=== PATIENT | male | born 1945 | race Caucasian/White ===

== ENCOUNTER 2019-02-06 13:24 | Inpatient (IN) ==
[~2019-02-06 13:24] MED LIST: *HR* Etomidate 20 MG/10 ML AMPUL IVP ONE; *HR* Rocuronium Bromide 100 MG/10 ML VIAL IVC ONE
--- NOTE | 2019-02-06 13:45 | Emergency Department Note ---
Disposition Clinical Impression: Dehydration, SIRS (systemic inflammatory response syndrome), Hypernatremia, Elevated troponin Altered mental status Qualifiers: Altered mental status type: unspecified Qualified Code(s): R41.82 - Altered mental status, unspecified Disposition: Admitted As Inpatient Condition: Serious Time of Disposition: 17:54 General Adult HPI - General Chief complaint: ED Altered Mental Status Stated complaint: altered mental status Time Seen by Provider: 02/06/19 13:38 Source: EMS Limitations: altered mental status - History of Present Illness Pain Scale: 0 - Related Data Home Medications Medication Instructions Recorded Confirmed Aspirin [Lo-Dose Aspirin EC] 81 mg PO DAILY 12/29/16 02/06/19 Atorvastatin Calcium [Lipitor] 80 mg PO HS 12/29/16 02/06/19 Donepezil HCl [Aricept] 10 mg PO HS 12/29/16 02/06/19 Lisinopril [Zestril] 20 mg PO BID 12/29/16 02/06/19 Memantine HCl 10 mg PO BID 12/29/16 02/06/19 amLODIPine [Norvasc] 5 mg PO DAILY 12/29/16 02/06/19 Acetaminophen [Extra Strength 1,000 mg PO BID 02/06/19 02/06/19 Non-Aspirin] Carbidopa/Levodopa ER 50/200 1 tab PO BID 02/06/19 02/06/19 [Sinemet ER 50-200 Tab] Metformin HCl [Fortamet] 1,000 mg PO BIDWM 02/06/19 02/06/19 Allergies Allergy/AdvReac Type Severity Reaction Status Date / Time No Known Allergies Allergy Verified 12/29/16 07:43 Past Medical History - Past Medical History Medical history: Reports: coronary artery disease, dementia, diabetes, GERD, hyperlipidemia, hypertension Surgical history: Reports: angioplasty/stent Psychiatric history: Reports: no psych history - Social History Smoking Status: Former smoker Smokeless Tobacco Status: No Alcohol use: Reports: none Drug use: Reports: none Physical Exam - General Limitations: altered mental status General appearance: other Course Vital Signs Temperature 100.8 F H 02/06/19 13:28 Pulse Rate 73 02/06/19 13:28 Respiratory Rate 33 02/06/19 13:28 Blood Pressure 117/62 02/06/19 13:28 O2 Sat by Pulse Oximetry 91 02/06/19 13:28 Temperature 100.8 F H 02/06/19 13:28 Pulse Rate 69 02/06/19 16:34 Respiratory Rate 16 02/06/19 16:34 Blood Pressure 128/67 02/06/19 16:34 O2 Sat by Pulse Oximetry 97 02/06/19 16:34 Oxygen Delivery Oxygen Delivery Ventilator Medical Decision Making - Lab Data Result diagrams: 02/06/19 13:30 02/06/19 13:30 Lab Results 02/06/19 02/06/19 02/06/19 Range/Units 13:30 13:30 13:30 WBC 13.8 H (4.3-11.1) K/mcL RBC 4.14 L (4.19-5.50) M/mcL Hgb 12.9 (12.9-16.9) g/dL Hct 40.1 (37.5-50.1) % MCV 96.9 (83.0-100.0) fL MCH 31.2 (28.0-33.3) pg MCHC 32.2 (31.6-35.5) g/dL RDW 12.6 (11.5-14.5) % Plt Count 232 (140-400) K/mcL MPV 11.3 (9.4-12.4) fL Immature Gran % 0.5 (0-4) % Seg Neutrophils % 86.4 % Lymphocytes % 6.9 % Monocytes % 6.1 % Eosinophils % 0.0 % Basophils % 0.1 % Neutrophils # 11.9 H (1.6-8.9) K/mcL Lymphocytes # 1.0 (0.6-4.6) K/mcL Monocytes # 0.9 (0.0-1.3) K/mcL Eosinophils # 0.0 (0.0-0.6) K/mcL Basophils # 0.0 (0.0-0.2) K/mcL PT 13.1 H (9.4-12.1) Seconds INR 1.2 APTT 30.8 (26.0-36.0) Seconds Sample Site ABG pH (7.32-7.45) pH Units ABG pCO2 (35-45) mmHg ABG pO2 (85-104) mmHg ABG HCO3 (21-27) mEq/L ABG Total CO2 (20-26) mEq/L ABG O2 Saturation (95-98) % ABG Base Excess (-2 to 3) mEq/L Nestor Test Respiration Rate O2 Delivery Device Blood Gas Modality Inspired O2 (1-15=lpm [id number]=%) Tidal Volume cc PEEP cm H2O Sodium 149 H (136-145) mEq/L Potassium 3.9 (3.5-5.1) mEq/L Chloride 115 H (98-107) mEq/L Carbon Dioxide 23 (23-29) mEq/L BUN 39 H (8-23) mg/dL Creatinine 1.17 (0.70-1.30) mg/dL Est GFR ( Amer) > 60 (> 60) Est GFR (Non-Af Amer) > 60 (> 60) BUN/Creatinine Ratio 33 H (6-26) Glucose 380 H (70-105) mg/dL POC Glucose (70-99) mg/dL Serum Osmolality (280-300) mOsm/kg Calculated Osmolality 333 H (280-300) Lactic Acid (0.5-2.2) mmol/L Calcium 8.7 (8.6-10.3) mg/dL Magnesium 2.2 (1.6-2.6) mg/dL Total Bilirubin 0.6 (0.3-1.0) mg/dL Direct Bilirubin 0.1 (0.0-0.2) mg/dL Indirect Bilirubin 0.5 (0.0-1.2) mg/dL AST 32 (13-39) Units/L ALT 7 (7-52) Units/L Alkaline Phosphatase 72 (34-104) Units/L Ammonia (16-53) mcmol/L Troponin I 0.04 H* (< 0.04) ng/mL Serum Total Protein 6.6 (6.4-8.9) g/dL Albumin 3.2 L (3.5-5.7) g/dL Globulin 3.4 (2.4-3.5) g/dL Albumin/Globulin Ratio 0.9 L (1.1-2.2) Urine Color (Yellow) Urine Clarity (Clear) Urine pH (5.0-8.0) pH Units Ur Specific [place] (1.010-1.025) Urine Protein (Neg-Trace) mg/dL Urine Glucose (UA) (Normal) mg/dL Urine Ketones (Negative) mg/dL Urine Blood (Negative) Urine Nitrite (Negative) Urine Bilirubin (Negative) Urine Urobilinogen (Normal) mg/dL Ur Leukocyte Esterase (Negative) Urine Microscopic RBC (0-3) per hpf Urine Microscopic WBC (0-3) per hpf Ur Squamous Epith Cells (None-Few) per lpf Urine Bacteria (None-Few) per hpf Hyaline Casts (None-Few) per lpf Granular Casts (None Seen) per lpf Ur Culture Indicated? (NO) Urine Osmolality Urine Sodium mEq/L Urine Opiates Screen (Abjrra=523) ng/mL Ur Buprenorphine Scrn (Cutoff=5) ng/mL Ur Barbiturates Screen (Enxpmd=763) ng/mL Ur Phencyclidine Scrn (Cutoff=25) ng/mL Ur Amphetamines Screen (Tmgveq=2384) ng/mL U Benzodiazepines Scrn (Yhxzsu=712) ng/mL Urine Cocaine Screen (Cutoff= 300) ng/mL U Marijuana (THC) Screen (Cutoff = 50) ng/mL Ur Drug Screen Interp Ethyl Alcohol < 10 (Less than 10) mg/dL 02/06/19 02/06/19 02/06/19 Range/Units 13:30 13:30 13:30 WBC (4.3-11.1) K/mcL RBC (4.19-5.50) M/mcL Hgb (12.9-16.9) g/dL Hct (37.5-50.1) % MCV (83.0-100.0) fL MCH (28.0-33.3) pg MCHC (31.6-35.5) g/dL RDW (11.5-14.5) % Plt Count (140-400) K/mcL MPV (9.4-12.4) fL Immature Gran % (0-4) % Seg Neutrophils % % Lymphocytes % % Monocytes % % Eosinophils % % Basophils % % Neutrophils # (1.6-8.9) K/mcL Lymphocytes # (0.6-4.6) K/mcL Monocytes # (0.0-1.3) K/mcL Eosinophils # (0.0-0.6) K/mcL Basophils # (0.0-0.2) K/mcL PT (9.4-12.1) Seconds INR APTT (26.0-36.0) Seconds Sample Site ABG pH (7.32-7.45) pH Units ABG pCO2 (35-45) mmHg ABG pO2 (85-104) mmHg ABG HCO3 (21-27) mEq/L ABG Total CO2 (20-26) mEq/L ABG O2 Saturation (95-98) % ABG Base Excess (-2 to 3) mEq/L Nestor Test Respiration Rate O2 Delivery Device Blood Gas Modality Inspired O2 (1-15=lpm gu86-853=%) Tidal Volume cc PEEP cm H2O Sodium (136-145) mEq/L Potassium (3.5-5.1) mEq/L Chloride (98-107) mEq/L Carbon Dioxide (23-29) mEq/L BUN (8-23) mg/dL Creatinine (0.70-1.30) mg/dL Est GFR ( Amer) (> 60) Est GFR (Non-Af Amer) (> 60) BUN/Creatinine Ratio (6-26) Glucose (70-105) mg/dL POC Glucose (70-99) mg/dL Serum Osmolality 340 H (280-300) mOsm/kg Calculated Osmolality (280-300) Lactic Acid 1.2 (0.5-2.2) mmol/L Calcium (8.6-10.3) mg/dL Magnesium (1.6-2.6) mg/dL Total Bilirubin (0.3-1.0) mg/dL Direct Bilirubin (0.0-0.2) mg/dL Indirect Bilirubin (0.0-1.2) mg/dL AST (13-39) Units/L ALT (7-52) Units/L Alkaline Phosphatase (34-104) Units/L Ammonia (16-53) mcmol/L Troponin I (< 0.04) ng/mL Serum Total Protein (6.4-8.9) g/dL Albumin (3.5-5.7) g/dL Globulin (2.4-3.5) g/dL Albumin/Globulin Ratio (1.1-2.2) Urine Color (Yellow) Urine Clarity (Clear) Urine pH (5.0-8.0) pH Units Ur Specific [place] (1.010-1.025) Urine Protein (Neg-Trace) mg/dL Urine Glucose (UA) (Normal) mg/dL Urine Ketones (Negative) mg/dL Urine Blood (Negative) Urine Nitrite (Negative) Urine Bilirubin (Negative) Urine Urobilinogen (Normal) mg/dL Ur Leukocyte Esterase (Negative) Urine Microscopic RBC (0-3) per hpf Urine Microscopic WBC (0-3) per hpf Ur Squamous Epith Cells (None-Few) per lpf Urine Bacteria (None-Few) per hpf Hyaline Casts (None-Few) per lpf Granular Casts (None Seen) per lpf Ur Culture Indicated? (NO) Urine Osmolality TNP Urine Sodium mEq/L Urine Opiates Screen (Lzgaew=087) ng/mL Ur Buprenorphine Scrn (Cutoff=5) ng/mL Ur Barbiturates Screen (Deucmn=127) ng/mL Ur Phencyclidine Scrn (Cutoff=25) ng/mL Ur Amphetamines Screen (Tumwam=2916) ng/mL U Benzodiazepines Scrn (Hamaqb=499) ng/mL Urine Cocaine Screen (Cutoff= 300) ng/mL U Marijuana (THC) Screen (Cutoff = 50) ng/mL Ur Drug Screen Interp Ethyl Alcohol (Less than 10) mg/dL 02/06/19 02/06/19 02/06/19 Range/Units 13:39 13:41 14:00 WBC (4.3-11.1) K/mcL RBC (4.19-5.50) M/mcL Hgb (12.9-16.9) g/dL Hct (37.5-50.1) % MCV (83.0-100.0) fL MCH (28.0-33.3) pg MCHC (31.6-35.5) g/dL RDW (11.5-14.5) % Plt Count (140-400) K/mcL MPV (9.4-12.4) fL Immature Gran % (0-4) % Seg Neutrophils % % Lymphocytes % % Monocytes % % Eosinophils % % Basophils % % Neutrophils # (1.6-8.9) K/mcL Lymphocytes # (0.6-4.6) K/mcL Monocytes # (0.0-1.3) K/mcL Eosinophils # (0.0-0.6) K/mcL Basophils # (0.0-0.2) K/mcL PT (9.4-12.1) Seconds INR APTT (26.0-36.0) Seconds Sample Site ABG pH (7.32-7.45) pH Units ABG pCO2 (35-45) mmHg ABG pO2 (85-104) mmHg ABG HCO3 (21-27) mEq/L ABG Total CO2 (20-26) mEq/L ABG O2 Saturation (95-98) % ABG Base Excess (-2 to 3) mEq/L Nestor Test Respiration Rate O2 Delivery Device Blood Gas Modality Inspired O2 (1-15=lpm [id number]=%) Tidal Volume cc PEEP cm H2O Sodium (136-145) mEq/L Potassium (3.5-5.1) mEq/L Chloride (98-107) mEq/L Carbon Dioxide (23-29) mEq/L BUN (8-23) mg/dL Creatinine (0.70-1.30) mg/dL Est GFR ( Amer) (> 60) Est GFR (Non-Af Amer) (> 60) BUN/Creatinine Ratio (6-26) Glucose (70-105) mg/dL POC Glucose 309 H 321 H (70-99) mg/dL Serum Osmolality (280-300) mOsm/kg Calculated Osmolality (280-300) Lactic Acid (0.5-2.2) mmol/L Calcium (8.6-10.3) mg/dL Magnesium (1.6-2.6) mg/dL Total Bilirubin (0.3-1.0) mg/dL Direct Bilirubin (0.0-0.2) mg/dL Indirect Bilirubin (0.0-1.2) mg/dL AST (13-39) Units/L ALT (7-52) Units/L Alkaline Phosphatase (34-104) Units/L Ammonia 43 (16-53) mcmol/L Troponin I (< 0.04) ng/mL Serum Total Protein (6.4-8.9) g/dL Albumin (3.5-5.7) g/dL Globulin (2.4-3.5) g/dL Albumin/Globulin Ratio (1.1-2.2) Urine Color (Yellow) Urine Clarity (Clear) Urine pH (5.0-8.0) pH Units Ur Specific [place] (1.010-1.025) Urine Protein (Neg-Trace) mg/dL Urine Glucose (UA) (Normal) mg/dL Urine Ketones (Negative) mg/dL Urine Blood (Negative) Urine Nitrite (Negative) Urine Bilirubin (Negative) Urine Urobilinogen (Normal) mg/dL Ur Leukocyte Esterase (Negative) Urine Microscopic RBC (0-3) per hpf Urine Microscopic WBC (0-3) per hpf Ur Squamous Epith Cells (None-Few) per lpf Urine Bacteria (None-Few) per hpf Hyaline Casts (None-Few) per lpf Granular Casts (None Seen) per lpf Ur Culture Indicated? (NO) Urine Osmolality Urine Sodium mEq/L Urine Opiates Screen (Fzcpgu=889) ng/mL Ur Buprenorphine Scrn (Cutoff=5) ng/mL Ur Barbiturates Screen (Pvswvu=392) ng/mL Ur Phencyclidine Scrn (Cutoff=25) ng/mL Ur Amphetamines Screen (Madxop=0299) ng/mL U Benzodiazepines Scrn (Zllqox=867) ng/mL Urine Cocaine Screen (Cutoff= 300) ng/mL U Marijuana (THC) Screen (Cutoff = 50) ng/mL Ur Drug Screen Interp Ethyl Alcohol (Less than 10) mg/dL 02/06/19 02/06/19 02/06/19 Range/Units 14:26 14:40 14:40 WBC (4.3-11.1) K/mcL RBC (4.19-5.50) M/mcL Hgb (12.9-16.9) g/dL Hct (37.5-50.1) % MCV (83.0-100.0) fL MCH (28.0-33.3) pg MCHC (31.6-35.5) g/dL RDW (11.5-14.5) % Plt Count (140-400) K/mcL MPV (9.4-12.4) fL Immature Gran % (0-4) % Seg Neutrophils % % Lymphocytes % % Monocytes % % Eosinophils % % Basophils % % Neutrophils # (1.6-8.9) K/mcL Lymphocytes # (0.6-4.6) K/mcL Monocytes # (0.0-1.3) K/mcL Eosinophils # (0.0-0.6) K/mcL Basophils # (0.0-0.2) K/mcL PT (9.4-12.1) Seconds INR APTT (26.0-36.0) Seconds Sample Site R Radial ABG pH 7.47 H (7.32-7.45) pH Units ABG pCO2 31 L (35-45) mmHg ABG pO2 59 L (85-104) mmHg ABG HCO3 23 (21-27) mEq/L ABG Total CO2 23 (20-26) mEq/L ABG O2 Saturation 92 L (95-98) % ABG Base Excess 0 (-2 to 3) mEq/L Nestor Test Positive Respiration Rate 20 O2 Delivery Device Adult Vent Blood Gas Modality ASSIST CONTROL Inspired O2 50.0 (1-15=lpm ip72-484=%) Tidal Volume 500 cc PEEP 5 cm H2O Sodium (136-145) mEq/L Potassium (3.5-5.1) mEq/L Chloride (98-107) mEq/L Carbon Dioxide (23-29) mEq/L BUN (8-23) mg/dL Creatinine (0.70-1.30) mg/dL Est GFR ( Amer) (> 60) Est GFR (Non-Af Amer) (> 60) BUN/Creatinine Ratio (6-26) Glucose (70-105) mg/dL POC Glucose (70-99) mg/dL Serum Osmolality (280-300) mOsm/kg Calculated Osmolality (280-300) Lactic Acid (0.5-2.2) mmol/L Calcium (8.6-10.3) mg/dL Magnesium (1.6-2.6) mg/dL Total Bilirubin (0.3-1.0) mg/dL Direct Bilirubin (0.0-0.2) mg/dL Indirect Bilirubin (0.0-1.2) mg/dL AST (13-39) Units/L ALT (7-52) Units/L Alkaline Phosphatase (34-104) Units/L Ammonia (16-53) mcmol/L Troponin I (< 0.04) ng/mL Serum Total Protein (6.4-8.9) g/dL Albumin (3.5-5.7) g/dL Globulin (2.4-3.5) g/dL Albumin/Globulin Ratio (1.1-2.2) Urine Color Dark Yellow (Yellow) Urine Clarity Turbid A (Clear) Urine pH 5.0 (5.0-8.0) pH Units Ur Specific [place] > 1.030 H (1.010-1.025) Urine Protein 100 H (Neg-Trace) mg/dL Urine Glucose (UA) 500 H (Normal) mg/dL Urine Ketones Negative (Negative) mg/dL Urine Blood Small H (Negative) Urine Nitrite Negative (Negative) Urine Bilirubin Small H (Negative) Urine Urobilinogen Normal (Normal) mg/dL Ur Leukocyte Esterase Small H (Negative) Urine Microscopic RBC 15-30 H (0-3) per hpf Urine Microscopic WBC 50-100 H (0-3) per hpf Ur Squamous Epith Cells Many H (None-Few) per lpf Urine Bacteria Few (None-Few) per hpf Hyaline Casts None Seen (None-Few) per lpf Granular Casts Few H (None Seen) per lpf Ur Culture Indicated? YES A (NO) Urine Osmolality Urine Sodium mEq/L Urine Opiates Screen Negative (Xsvjhz=490) ng/mL Ur Buprenorphine Scrn Negative (Cutoff=5) ng/mL Ur Barbiturates Screen Negative (Efamhq=466) ng/mL Ur Phencyclidine Scrn Negative (Cutoff=25) ng/mL Ur Amphetamines Screen Negative (Qsyayh=0071) ng/mL U Benzodiazepines Scrn Negative (Sezeoh=830) ng/mL Urine Cocaine Screen Negative (Cutoff= 300) ng/mL U Marijuana (THC) Screen Negative (Cutoff = 50) ng/mL Ur Drug Screen Interp See Below Ethyl Alcohol (Less than 10) mg/dL 02/06/19 02/06/19 Range/Units 14:40 14:40 WBC (4.3-11.1) K/mcL RBC (4.19-5.50) M/mcL Hgb (12.9-16.9) g/dL Hct (37.5-50.1) % MCV (83.0-100.0) fL MCH (28.0-33.3) pg MCHC (31.6-35.5) g/dL RDW (11.5-14.5) % Plt Count (140-400) K/mcL MPV (9.4-12.4) fL Immature Gran % (0-4) % Seg Neutrophils % % Lymphocytes % % Monocytes % % Eosinophils % % Basophils % % Neutrophils # (1.6-8.9) K/mcL Lymphocytes # (0.6-4.6) K/mcL Monocytes # (0.0-1.3) K/mcL Eosinophils # (0.0-0.6) K/mcL Basophils # (0.0-0.2) K/mcL PT (9.4-12.1) Seconds INR APTT (26.0-36.0) Seconds Sample Site ABG pH (7.32-7.45) pH Units ABG pCO2 (35-45) mmHg ABG pO2 (85-104) mmHg ABG HCO3 (21-27) mEq/L ABG Total CO2 (20-26) mEq/L ABG O2 Saturation (95-98) % ABG Base Excess (-2 to 3) mEq/L Nestor Test Respiration Rate O2 Delivery Device Blood Gas Modality Inspired O2 (1-15=lpm ot15-649=%) Tidal Volume cc PEEP cm H2O Sodium (136-145) mEq/L Potassium (3.5-5.1) mEq/L Chloride (98-107) mEq/L Carbon Dioxide (23-29) mEq/L BUN (8-23) mg/dL Creatinine (0.70-1.30) mg/dL Est GFR ( Amer) (> 60) Est GFR (Non-Af Amer) (> 60) BUN/Creatinine Ratio (6-26) Glucose (70-105) mg/dL POC Glucose (70-99) mg/dL Serum Osmolality (280-300) mOsm/kg Calculated Osmolality (280-300) Lactic Acid (0.5-2.2) mmol/L Calcium (8.6-10.3) mg/dL Magnesium (1.6-2.6) mg/dL Total Bilirubin (0.3-1.0) mg/dL Direct Bilirubin (0.0-0.2) mg/dL Indirect Bilirubin (0.0-1.2) mg/dL AST (13-39) Units/L ALT (7-52) Units/L Alkaline Phosphatase (34-104) Units/L Ammonia (16-53) mcmol/L Troponin I (< 0.04) ng/mL Serum Total Protein (6.4-8.9) g/dL Albumin (3.5-5.7) g/dL Globulin (2.4-3.5) g/dL Albumin/Globulin Ratio (1.1-2.2) Urine Color (Yellow) Urine Clarity (Clear) Urine pH (5.0-8.0) pH Units Ur Specific [place] (1.010-1.025) Urine Protein (Neg-Trace) mg/dL Urine Glucose (UA) (Normal) mg/dL Urine Ketones (Negative) mg/dL Urine Blood (Negative) Urine Nitrite (Negative) Urine Bilirubin (Negative) Urine Urobilinogen (Normal) mg/dL Ur Leukocyte Esterase (Negative) Urine Microscopic RBC (0-3) per hpf Urine Microscopic WBC (0-3) per hpf Ur Squamous Epith Cells (None-Few) per lpf Urine Bacteria (None-Few) per hpf Hyaline Casts (None-Few) per lpf Granular Casts (None Seen) per lpf Ur Culture Indicated? (NO) Urine Osmolality 996 Urine Sodium 26.2 mEq/L Urine Opiates Screen (Djfrsz=109) ng/mL Ur Buprenorphine Scrn (Cutoff=5) ng/mL Ur Barbiturates Screen (Bwqdqj=731) ng/mL Ur Phencyclidine Scrn (Cutoff=25) ng/mL Ur Amphetamines Screen (Klzkck=7416) ng/mL U Benzodiazepines Scrn (Fppnlk=371) ng/mL Urine Cocaine Screen (Cutoff= 300) ng/mL U Marijuana (THC) Screen (Cutoff = 50) ng/mL Ur Drug Screen Interp Ethyl Alcohol (Less than 10) mg/dL Critical Care Time Critical Care Time: Yes Total Critical Care Time: 35 Attestation: 35 minutes of critical care time excluding separately billable procedures given the patient's mental status, necessity for continuous monitoring, coordination and admission to the intensive care unit. Attestation Statement - Attestation Attestation: Carissa Griffin D.O., examined this patient and my medical decision-making was reviewed with the Resident Physician. I agree with the documented findings, disposition and treatment plan as described except to the extent set forth below. 73-year-old male with a history of Alzheimer's who presents from nursing facility due to altered mental status and fever. EMS reports he has had a decreased level of responsiveness at the facility over the last 2 days. They checked his temperature prior to transfer today and said it was 103. arrived shortly after saying that he has been less responsive for the last few days. Denies any vomiting, diarrhea. States that yesterday he choked and coughed whenever he was drinking a little bit of liquid. General: Somnolent HENT: Normocephalic, Atraumatic Neck: No JVD Cardiovascular: Regular rate and rhythm. No appreciable murmurs Respiratory: Diminished breath sounds bilaterally. No wheezing/rhonchi Abdominal: Soft, non tender. No peritoneal findings Extremities: No peripheral edema Neuro: Somnolent, Withdraws to pain Skin: Warm, Dry, Grade 1 decubitus ulcer Plan: Septic evaluation including CBC, Lactic acid, Blood cultures, CXR, UA, CT Head. Begin IVF and supplemental O2. ED Procedure Note: EKG interpretation - I agree with the resident physician's documentation and interpretation of the patient's EKG. Sinus rhythm with rate of 75 bpm. Normal axis. Upsloping inferior and lateral ST depressions. No gross ST elevations. Changes from previous EKG on 12/29/[address] T wave changes. Procedure note: The patient was intubated by the resident physician, Dr. Mayo under my direct supervision without complication. Please see her note for details. Imaging and labs reviewed. CT without acute findings. He does have a leukocytosis. His lactic acid is normal. He has a slight elevation of his troponin. He has no obvious source for his fever. Lumbar puncture was atte mpted by the resident physician as well as myself. This was unsuccessful. The patient has been started on broad-spectrum antibiotic coverage including vancomycin, Zosyn and Levaquin. The patient has been given 2 L of normal saline. Given his hypernatremia we are starting half-normal saline at maintenance with a repeat chemistry in 6 hours. The patient is admitted to the intensive care unit under the hospitalist service.
--- NOTE | 2019-02-06 13:50 | Emergency Department Note ---
Disposition Clinical Impression: Dehydration, SIRS (systemic inflammatory response syndrome), Hypernatremia Altered mental status Qualifiers: Altered mental status type: unspecified Qualified Code(s): R41.82 - Altered mental status, unspecified Disposition: Admitted As Inpatient Condition: Serious Referrals: Julio Seals Jr, MD [Primary Care Provider] - Forms: ED Satisfaction Letter Time of Disposition: 17:11 General Adult HPI - General Chief complaint: ED Altered Mental Status Stated complaint: altered mental status Time Seen by Provider: 02/06/19 13:38 Source: family, EMS Mode of arrival: EMS Limitations: altered mental status Nursing Notes Reviewed: Yes Vital Signs Reviewed: Yes - History of Present Illness HPI Narrative: Patient is a 73-year-old male that presents emergency Department with reports from EMS and family that the patient has had increased altered mentation. Family member states that approximately one week ago the patient went into a standing care facility due to his Alzheimer's. States that at that time he was up ambulating around without issue. States that for about the past week he has had altered mentation and is had minimal responsiveness at the extended care facility and has not been wanting to eat and has lost approximately 10 pounds. Patient's states that he is a diabetic and takes metformin but does not take any insulin. Patient's states that he has not really been eating and occasionally when his foot will choke on his food. Family member states that he just has not been acting his usual self and has been febrile. Family states that they have done blood work and x-rays at the outside facility and have not found a source of infection. Pain Scale: 0 - Related Data Home Medications Medication Instructions Recorded Confirmed Aspirin [Lo-Dose Aspirin EC] 81 mg PO DAILY 12/29/16 12/29/16 Atorvastatin Calcium [Lipitor] 80 mg PO HS 12/29/16 12/29/16 Donepezil HCl [Aricept] 10 mg PO HS 12/29/16 12/29/16 Lisinopril [Zestril] 20 mg PO BID 12/29/16 12/29/16 Memantine HCl 10 mg PO BID 12/29/16 12/29/16 amLODIPine [Norvasc] 5 mg PO DAILY 12/29/16 12/29/16 Acetaminophen [Extra Strength 1,000 mg PO BID 02/06/19 02/06/19 Non-Aspirin] Carbidopa/Levodopa ER 50/200 1 tab PO BID 02/06/19 02/06/19 [Sinemet ER 50-200 Tab] Metformin HCl [Fortamet] 1,000 mg PO BIDWM 02/06/19 02/06/19 Allergies Allergy/AdvReac Type Severity Reaction Status Date / Time No Known Allergies Allergy Verified 12/29/16 07:43 All systems ED: reviewed and negative except as stated. (Was obtained from family.) Limitations: ROS unobtainable due to patients medical condition Constitutional: Reports: fever Neurological: Reports: other (Altered mentation ) Past Medical History - Past Medical History Medical history: Reports: coronary artery disease, dementia, diabetes, GERD, hyperlipidemia, hypertension Surgical history: Reports: angioplasty/stent Psychiatric history: Reports: no psych history - Social History Smoking Status: Former smoker Smokeless Tobacco Status: No Alcohol use: Reports: none Drug use: Reports: none Physical Exam - General Limitations: altered mental status General appearance: other - Head Head exam: atraumatic, normocephalic - Eye Eye exam: Present: other (Patient has pinpoint pupils bilaterally.) - Neck Neck exam: Present: normal inspection, full ROM, trachea midline - Respiratory Respiratory exam: Present: normal lung sounds bilaterally. Absent: respiratory distress, wheezes - Cardiovascular Cardiovascular exam: Present: regular rate, normal rhythm, normal heart sounds, +S1, +S2 - Abdominal Exam Abdominal exam: Present: soft, Non-Tender, normal bowel sounds - Neurological Exam Neurological exam: Absent: alert, oriented X3 - Psychiatric Psychiatric exam: Present: normal affect, normal mood - Skin Skin exam: Present: warm, dry, intact Course Vital Signs Temperature 100.8 F H 02/06/19 13:28 Pulse Rate 73 02/06/19 13:28 Respiratory Rate 33 02/06/19 13:28 Blood Pressure 117/62 02/06/19 13:28 O2 Sat by Pulse Oximetry 91 02/06/19 13:28 Temperature 100.8 F H 02/06/19 13:28 Pulse Rate 69 02/06/19 16:34 Respiratory Rate 16 02/06/19 16:34 Blood Pressure 128/67 02/06/19 16:34 O2 Sat by Pulse Oximetry 97 02/06/19 16:34 Oxygen Delivery Oxygen Delivery Ventilator Medical Decision Making - MDM Narrative Medical decision making narrative: Due to the patient presenting to the emergency department with reports of being minimally responsive and febrile we will obtain basic lab for testing, head CT and chest x-ray blood cultures the patient was start on empiric antibiotics. The patient's respiratory status was tachypnea and did not feel that she is protecting his own airway. Due to his airway being unprotected we elected to intubate the patient. Patient was taken to the trauma bay and respiratory therapy was called to bedside. Patient received 20 mg of etomidate and 60 of rocuronium and the patient was intubated by Dr. Mer Mayo. A 4 Mac direct laryngoscope and a 7.5 ET tube was placed successfully. There was equal breath sounds bilaterally with chest x-ray confirmation. The patient's head CT did not show evidence of acute intra-cranial abnormalities. Patient's laboratory testing showed a mild leukocytosis, normal lactic acid. A mildly elevated troponin of 0.04. Chest x-ray did not show any focal infiltrates cells suggest a ammonia. The patient's urinalysis did not show signs of an overt infection to explain the patient's condition. Patient was started on empiric antibiotics. Patient did have an elevated sodium of 149. The patient does appear to be dry based on laboratory testing. An LP was attempted by myself and the attending however it was unable to be obtained due to the patient's body habitus. The patient will require admission to the ICU due to being on a ventilator. Spoke with the admitting hospitalist Dr. Kamara and she is accepted the patient for admission. The patient will be admitted to the ICU for further evaluation and management. It was relayed to her that we were unable to obtain a sample of cerebrospinal fluid and the patient would likely need a spinal tap under fluoroscopy by interventional radiology. She stated that she had passed this onto the admitting hospitalist. - Medical Records Medical records reviewed: Yes I reviewed the patient's medical records. - Lab Data Lab results reviewed: Yes I reviewed the patient's lab results. Result diagrams: 02/06/19 13:30 02/06/19 13:30 Lab Results 02/06/19 02/06/19 02/06/19 Range/Units 13:30 13:30 13:30 WBC 13.8 H (4.3-11.1) K/mcL RBC 4.14 L (4.19-5.50) M/mcL Hgb 12.9 (12.9-16.9) g/dL Hct 40.1 (37.5-50.1) % MCV 96.9 (83.0-100.0) fL MCH 31.2 (28.0-33.3) pg MCHC 32.2 (31.6-35.5) g/dL RDW 12.6 (11.5-14.5) % Plt Count 232 (140-400) K/mcL MPV 11.3 (9.4-12.4) fL Immature Gran % 0.5 (0-4) % Seg Neutrophils % 86.4 % Lymphocytes % 6.9 % Monocytes % 6.1 % Eosinophils % 0.0 % Basophils % 0.1 % Neutrophils # 11.9 H (1.6-8.9) K/mcL Lymphocytes # 1.0 (0.6-4.6) K/mcL Monocytes # 0.9 (0.0-1.3) K/mcL Eosinophils # 0.0 (0.0-0.6) K/mcL Basophils # 0.0 (0.0-0.2) K/mcL PT 13.1 H (9.4-12.1) Seconds INR 1.2 APTT 30.8 (26.0-36.0) Seconds Sample Site ABG pH (7.32-7.45) pH Units ABG pCO2 (35-45) mmHg ABG pO2 (85-104) mmHg ABG HCO3 (21-27) mEq/L ABG Total CO2 (20-26) mEq/L ABG O2 Saturation (95-98) % ABG Base Excess (-2 to 3) mEq/L Nestor Test Respiration Rate O2 Delivery Device Blood Gas Modality Inspired O2 (1-15=lpm [id number]=%) Tidal Volume cc PEEP cm H2O Sodium 149 H (136-145) mEq/L Potassium 3.9 (3.5-5.1) mEq/L Chloride 115 H (98-107) mEq/L Carbon Dioxide 23 (23-29) mEq/L BUN 39 H (8-23) mg/dL Creatinine 1.17 (0.70-1.30) mg/dL Est GFR ( Amer) > 60 (> 60) Est GFR (Non-Af Amer) > 60 (> 60) BUN/Creatinine Ratio 33 H (6-26) Glucose 380 H (70-105) mg/dL Serum Osmolality (280-300) mOsm/kg Calculated Osmolality 333 H (280-300) Lactic Acid (0.5-2.2) mmol/L Calcium 8.7 (8.6-10.3) mg/dL Magnesium 2.2 (1.6-2.6) mg/dL Total Bilirubin 0.6 (0.3-1.0) mg/dL Direct Bilirubin 0.1 (0.0-0.2) mg/dL Indirect Bilirubin 0.5 (0.0-1.2) mg/dL AST 32 (13-39) Units/L ALT 7 (7-52) Units/L Alkaline Phosphatase 72 (34-104) Units/L Ammonia (16-53) mcmol/L Troponin I 0.04 H* (< 0.04) ng/mL Serum Total Protein 6.6 (6.4-8.9) g/dL Albumin 3.2 L (3.5-5.7) g/dL Globulin 3.4 (2.4-3.5) g/dL Albumin/Globulin Ratio 0.9 L (1.1-2.2) Urine Color (Yellow) Urine Clarity (Clear) Urine pH (5.0-8.0) pH Units Ur Specific [place] (1.010-1.025) Urine Protein (Neg-Trace) mg/dL Urine Glucose (UA) (Normal) mg/dL Urine Ketones (Negative) mg/dL Urine Blood (Negative) Urine Nitrite (Negative) Urine Bilirubin (Negative) Urine Urobilinogen (Normal) mg/dL Ur Leukocyte Esterase (Negative) Urine Microscopic RBC (0-3) per hpf Urine Microscopic WBC (0-3) per hpf Ur Squamous Epith Cells (None-Few) per lpf Urine Bacteria (None-Few) per hpf Hyaline Casts (None-Few) per lpf Granular Casts (None Seen) per lpf Ur Culture Indicated? (NO) Urine Osmolality Urine Opiates Screen (Ihhetp=040) ng/mL Ur Buprenorphine Scrn (Cutoff=5) ng/mL Ur Barbiturates Screen (Iombwo=902) ng/mL Ur Phencyclidine Scrn (Cutoff=25) ng/mL Ur Amphetamines Screen (Pebrmn=0771) ng/mL U Benzodiazepines Scrn (Mlhyrf=958) ng/mL Urine Cocaine Screen (Cutoff= 300) ng/mL U Marijuana (THC) Screen (Cutoff = 50) ng/mL Ur Drug Screen Interp Ethyl Alcohol < 10 (Less than 10) mg/dL 02/06/19 02/06/19 02/06/19 Range/Units 13:30 13:30 13:30 WBC (4.3-11.1) K/mcL RBC (4.19-5.50) M/mcL Hgb (12.9-16.9) g/dL Hct (37.5-50.1) % MCV (83.0-100.0) fL MCH (28.0-33.3) pg MCHC (31.6-35.5) g/dL RDW (11.5-14.5) % Plt Count (140-400) K/mcL MPV (9.4-12.4) fL Immature Gran % (0-4) % Seg Neutrophils % % Lymphocytes % % Monocytes % % Eosinophils % % Basophils % % Neutrophils # (1.6-8.9) K/mcL Lymphocytes # (0.6-4.6) K/mcL Monocytes # (0.0-1.3) K/mcL Eosinophils # (0.0-0.6) K/mcL Basophils # (0.0-0.2) K/mcL PT (9.4-12.1) Seconds INR APTT (26.0-36.0) Seconds Sample Site ABG pH (7.32-7.45) pH Units ABG pCO2 (35-45) mmHg ABG pO2 (85-104) mmHg ABG HCO3 (21-27) mEq/L ABG Total CO2 (20-26) mEq/L ABG O2 Saturation (95-98) % ABG Base Excess (-2 to 3) mEq/L Nestor Test Respiration Rate O2 Delivery Device Blood Gas Modality Inspired O2 (1-15=lpm [id number]=%) Tidal Volume cc PEEP cm H2O Sodium (136-145) mEq/L Potassium (3.5-5.1) mEq/L Chloride (98-107) mEq/L Carbon Dioxide (23-29) mEq/L BUN (8-23) mg/dL Creatinine (0.70-1.30) mg/dL Est GFR ( Amer) (> 60) Est GFR (Non-Af Amer) (> 60) BUN/Creatinine Ratio (6-26) Glucose (70-105) mg/dL Serum Osmolality 340 H (280-300) mOsm/kg Calculated Osmolality (280-300) Lactic Acid 1.2 (0.5-2.2) mmol/L Calcium (8.6-10.3) mg/dL Magnesium (1.6-2.6) mg/dL Total Bilirubin (0.3-1.0) mg/dL Direct Bilirubin (0.0-0.2) mg/dL Indirect Bilirubin (0.0-1.2) mg/dL AST (13-39) Units/L ALT (7-52) Units/L Alkaline Phosphatase (34-104) Units/L Ammonia (16-53) mcmol/L Troponin I (< 0.04) ng/mL Serum Total Protein (6.4-8.9) g/dL Albumin (3.5-5.7) g/dL Globulin (2.4-3.5) g/dL Albumin/Globulin Ratio (1.1-2.2) Urine Color (Yellow) Urine Clarity (Clear) Urine pH (5.0-8.0) pH Units Ur Specific [place] (1.010-1.025) Urine Protein (Neg-Trace) mg/dL Urine Glucose (UA) (Normal) mg/dL Urine Ketones (Negative) mg/dL Urine Blood (Negative) Urine Nitrite (Negative) Urine Bilirubin (Negative) Urine Urobilinogen (Normal) mg/dL Ur Leukocyte Esterase (Negative) Urine Microscopic RBC (0-3) per hpf Urine Microscopic WBC (0-3) per hpf Ur Squamous Epith Cells (None-Few) per lpf Urine Bacteria (None-Few) per hpf Hyaline Casts (None-Few) per lpf Granular Casts (None Seen) per lpf Ur Culture Indicated? (NO) Urine Osmolality TNP Urine Opiates Screen (Xtgdyr=032) ng/mL Ur Buprenorphine Scrn (Cutoff=5) ng/mL Ur Barbiturates Screen (Bwtblc=918) ng/mL Ur Phencyclidine Scrn (Cutoff=25) ng/mL Ur Amphetamines Screen (Wgxqye=2913) ng/mL U Benzodiazepines Scrn (Olcyfz=699) ng/mL Urine Cocaine Screen (Cutoff= 300) ng/mL U Marijuana (THC) Screen (Cutoff = 50) ng/mL Ur Drug Screen Interp Ethyl Alcohol (Less than 10) mg/dL 02/06/19 02/06/19 02/06/19 Range/Units 14:00 14:26 14:40 WBC (4.3-11.1) K/mcL RBC (4.19-5.50) M/mcL Hgb (12.9-16.9) g/dL Hct (37.5-50.1) % MCV (83.0-100.0) fL MCH (28.0-33.3) pg MCHC (31.6-35.5) g/dL RDW (11.5-14.5) % Plt Count (140-400) K/mcL MPV (9.4-12.4) fL Immature Gran % (0-4) % Seg Neutrophils % % Lymphocytes % % Monocytes % % Eosinophils % % Basophils % % Neutrophils # (1.6-8.9) K/mcL Lymphocytes # (0.6-4.6) K/mcL Monocytes # (0.0-1.3) K/mcL Eosinophils # (0.0-0.6) K/mcL Basophils # (0.0-0.2) K/mcL PT (9.4-12.1) Seconds INR APTT (26.0-36.0) Seconds Sample Site R Radial ABG pH 7.47 H (7.32-7.45) pH Units ABG pCO2 31 L (35-45) mmHg ABG pO2 59 L (85-104) mmHg ABG HCO3 23 (21-27) mEq/L ABG Total CO2 23 (20-26) mEq/L ABG O2 Saturation 92 L (95-98) % ABG Base Excess 0 (-2 to 3) mEq/L Nestor Test Positive Respiration Rate 20 O2 Delivery Device Adult Vent Blood Gas Modality ASSIST CONTROL Inspired O2 50.0 (1-15=lpm [id number]=%) Tidal Volume 500 cc PEEP 5 cm H2O Sodium (136-145) mEq/L Potassium (3.5-5.1) mEq/L Chloride (98-107) mEq/L Carbon Dioxide (23-29) mEq/L BUN (8-23) mg/dL Creatinine (0.70-1.30) mg/dL Est GFR ( Amer) (> 60) Est GFR (Non-Af Amer) (> 60) BUN/Creatinine Ratio (6-26) Glucose (70-105) mg/dL Serum Osmolality (280-300) mOsm/kg Calculated Osmolality (280-300) Lactic Acid (0.5-2.2) mmol/L Calcium (8.6-10.3) mg/dL Magnesium (1.6-2.6) mg/dL Total Bilirubin (0.3-1.0) mg/dL Direct Bilirubin (0.0-0.2) mg/dL Indirect Bilirubin (0.0-1.2) mg/dL AST (13-39) Units/L ALT (7-52) Units/L Alkaline Phosphatase (34-104) Units/L Ammonia 43 (16-53) mcmol/L Troponin I (< 0.04) ng/mL Serum Total Protein (6.4-8.9) g/dL Albumin (3.5-5.7) g/dL Globulin (2.4-3.5) g/dL Albumin/Globulin Ratio (1.1-2.2) Urine Color Dark Yellow (Yellow) Urine Clarity Turbid A (Clear) Urine pH 5.0 (5.0-8.0) pH Units Ur Specific [place] > 1.030 H (1.010-1.025) Urine Protein 100 H (Neg-Trace) mg/dL Urine Glucose (UA) 500 H (Normal) mg/dL Urine Ketones Negative (Negative) mg/dL Urine Blood Small H (Negative) Urine Nitrite Negative (Negative) Urine Bilirubin Small H (Negative) Urine Urobilinogen Normal (Normal) mg/dL Ur Leukocyte Esterase Small H (Negative) Urine Microscopic RBC 15-30 H (0-3) per hpf Urine Microscopic WBC 50-100 H (0-3) per hpf Ur Squamous Epith Cells Many H (None-Few) per lpf Urine Bacteria Few (None-Few) per hpf Hyaline Casts None Seen (None-Few) per lpf Granular Casts Few H (None Seen) per lpf Ur Culture Indicated? YES A (NO) Urine Osmolality Urine Opiates Screen (Dhoopz=975) ng/mL Ur Buprenorphine Scrn (Cutoff=5) ng/mL Ur Barbiturates Screen (Zhpjqw=440) ng/mL Ur Phencyclidine Scrn (Cutoff=25) ng/mL Ur Amphetamines Screen (Cgnyqc=9116) ng/mL U Benzodiazepines Scrn (Fwakkl=341) ng/mL Urine Cocaine Screen (Cutoff= 300) ng/mL U Marijuana (THC) Screen (Cutoff = 50) ng/mL Ur Drug Screen Interp Ethyl Alcohol (Less than 10) mg/dL 02/06/19 Range/Units 14:40 WBC (4.3-11.1) K/mcL RBC (4.19-5.50) M/mcL Hgb (12.9-16.9) g/dL Hct (37.5-50.1) % MCV (83.0-100.0) fL MCH (28.0-33.3) pg MCHC (31.6-35.5) g/dL RDW (11.5-14.5) % Plt Count (140-400) K/mcL MPV (9.4-12.4) fL Immature Gran % (0-4) % Seg Neutrophils % % Lymphocytes % % Monocytes % % Eosinophils % % Basophils % % Neutrophils # (1.6-8.9) K/mcL Lymphocytes # (0.6-4.6) K/mcL Monocytes # (0.0-1.3) K/mcL Eosinophils # (0.0-0.6) K/mcL Basophils # (0.0-0.2) K/mcL PT (9.4-12.1) Seconds INR APTT (26.0-36.0) Seconds Sample Site ABG pH (7.32-7.45) pH Units ABG pCO2 (35-45) mmHg ABG pO2 (85-104) mmHg ABG HCO3 (21-27) mEq/L ABG Total CO2 (20-26) mEq/L ABG O2 Saturation (95-98) % ABG Base Excess (-2 to 3) mEq/L Nestor Test Respiration Rate O2 Delivery Device Blood Gas Modality Inspired O2 (1-15=lpm ve52-177=%) Tidal Volume cc PEEP cm H2O Sodium (136-145) mEq/L Potassium (3.5-5.1) mEq/L Chloride (98-107) mEq/L Carbon Dioxide (23-29) mEq/L BUN (8-23) mg/dL Creatinine (0.70-1.30) mg/dL Est GFR ( Amer) (> 60) Est GFR (Non-Af Amer) (> 60) BUN/Creatinine Ratio (6-26) Glucose (70-105) mg/dL Serum Osmolality (280-300) mOsm/kg Calculated Osmolality (280-300) Lactic Acid (0.5-2.2) mmol/L Calcium (8.6-10.3) mg/dL Magnesium (1.6-2.6) mg/dL Total Bilirubin (0.3-1.0) mg/dL Direct Bilirubin (0.0-0.2) mg/dL Indirect Bilirubin (0.0-1.2) mg/dL AST (13-39) Units/L ALT (7-52) Units/L Alkaline Phosphatase (34-104) Units/L Ammonia (16-53) mcmol/L Troponin I (< 0.04) ng/mL Serum Total Protein (6.4-8.9) g/dL Albumin (3.5-5.7) g/dL Globulin (2.4-3.5) g/dL Albumin/Globulin Ratio (1.1-2.2) Urine Color (Yellow) Urine Clarity (Clear) Urine pH (5.0-8.0) pH Units Ur Specific [place] (1.010-1.025) Urine Protein (Neg-Trace) mg/dL Urine Glucose (UA) (Normal) mg/dL Urine Ketones (Negative) mg/dL Urine Blood (Negative) Urine Nitrite (Negative) Urine Bilirubin (Negative) Urine Urobilinogen (Normal) mg/dL Ur Leukocyte Esterase (Negative) Urine Microscopic RBC (0-3) per hpf Urine Microscopic WBC (0-3) per hpf Ur Squamous Epith Cells (None-Few) per lpf Urine Bacteria (None-Few) per hpf Hyaline Casts (None-Few) per lpf Granular Casts (None Seen) per lpf Ur Culture Indicated? (NO) Urine Osmolality Urine Opiates Screen Negative (Jbjmnb=379) ng/mL Ur Buprenorphine Scrn Negative (Cutoff=5) ng/mL Ur Barbiturates Screen Negative (Tzhxih=494) ng/mL Ur Phencyclidine Scrn Negative (Cutoff=25) ng/mL Ur Amphetamines Screen Negative (Oanaqi=4984) ng/mL U Benzodiazepines Scrn Negative (Pywcrn=184) ng/mL Urine Cocaine Screen Negative (Cutoff= 300) ng/mL U Marijuana (THC) Screen Negative (Cutoff = 50) ng/mL Ur Drug Screen Interp See Below Ethyl Alcohol (Less than 10) mg/dL - Radiology Data Radiology results reviewed: Yes I reviewed the patient's radiology results. Head CT 02/06/19 13:39 IMPRESSION: No acute intracranial abnormality. D/ / Steven Devlin MD / Steven Devlin MD Interpreting Provider: Steven Devlin MD Chest X-Ray 02/06/19 14:19 IMPRESSION: Endotracheal tube placement in appropriate location. D/ / 02/06/2019 14:49:57 Matthieu Araujo MD / natan Interpreting Provider: Matthieu Araujo MD - EKG Data EKG #1 EKG attestation: Yes I reviewed and interpreted this EKG. EKG results narrative: Patient's EKG showed a sinus rhythm at a rate of 75 beats from it, PA interval 113, curious duration 101, QTC of 493. There is no evidence of STEMI and EKG. There are some mild ST depressions in 3 and aVF with upsloping depressions in V4, V5 and V6. There is what appears to be an incomplete conduction delay and an RSR prime. This is compared to previous EKG on 12/29/16. Attestation Statement - Attestation Attestation: Carissa Griffin D.O., examined this patient and my medical decision-making was reviewed with the Resident Physician. I agree with the documented findings, disposition and treatment plan as described except to the extent set forth below.
[2019-02-06 13:52] LABS: Basophils % 0.1 %; Hematocrit 40.1 % (37.5-50.1); Hemoglobin 12.9 g/dL (12.9-16.9); Immature Granulocytes % 0.5 % (0-4); Lymphocytes % 6.9 %; Mean Corpuscular HGB Conc 32.2 g/dL (31.6-35.5); Mean Corpuscular Hemoglobin 31.2 pg (28.0-33.3); Mean Corpuscular Volume 96.9 fL (83.0-100.0); Mean Platelet Volume 11.3 fL (9.4-12.4); Monocytes # 0.9 K/mcL (0.0-1.3); Monocytes % 6.1 %; Neutrophils # 11.9 K/mcL (1.6-8.9); Platelet Count 232 K/mcL (140-400); Red Blood Count 4.14 M/mcL (4.19-5.50); Red Cell Distribution Width 12.6 % (11.5-14.5); Segmented Neutrophils % 86.4 %; White Blood Count 13.8 K/mcL (4.3-11.1)
[2019-02-06 14:02] LABS: INR 1.2; Prothrombin Time 13.1 Seconds (9.4-12.1)
[2019-02-06 14:05] LABS: Activated Partial Thrombo Time 30.8 Seconds (26.0-36.0)
[2019-02-06] MEDS ORDERED: 0.9 % Sodium Chloride 1,000 ML ONE ×2 (14:07→14:36)
[2019-02-06 14:08] LABS: Alanine Aminotransferase 7 Units/L (7-52); Albumin 3.2 g/dL (3.5-5.7); Albumin/Globulin Ratio 0.9 (1.1-2.2); Alkaline Phosphatase 72 Units/L (34-104); Aspartate Amino Transferase 32 Units/L (13-39); BUN/Creatinine Ratio 33 (6-26); Bilirubin,Direct 0.1 mg/dL (0.0-0.2); Bilirubin,Indirect 0.5 mg/dL (0.0-1.2); Bilirubin,Total 0.6 mg/dL (0.3-1.0); Blood Urea Nitrogen 39 mg/dL (8-23); Calcium 8.7 mg/dL (8.6-10.3); Carbon Dioxide 23 mEq/L (23-29); Chloride 115 mEq/L (98-107); Ethanol < 10 mg/dL (Less than 10); Globulin 3.4 g/dL (2.4-3.5); Glucose 380 mg/dL (70-105); Magnesium 2.2 mg/dL (1.6-2.6); Osmolality,Calculated 333 (280-300); Potassium 3.9 mEq/L (3.5-5.1); Sodium 149 mEq/L (136-145); Total Protein 6.6 g/dL (6.4-8.9); eGFR For African Americans > 60 (> 60); eGFR For Non-African Americans > 60 (> 60)
[2019-02-06] MEDS ORDERED: *HR* Rocuronium Bromide 50 MG/5 ML VIAL IVP ONE (14:16)
[2019-02-06] MEDS ORDERED: *HR* Etomidate 20 MG/10 ML AMPUL IVP ONE (14:16)
[2019-02-06] MEDS ORDERED: Acetaminophen 650 MG RECTAL SUPP RC ONE (14:26)
[2019-02-06] MEDS: 0.9 % Sodium Chloride 1,000 ML IVC SCH ×2 (14:29→14:37)
[2019-02-06 14:30] LABS: ABG Base Excess 0 mEq/L (-2 to 3); ABG HCO3 23 mEq/L (21-27); ABG Oxygen Saturation 92 % (95-98); ABG PCO2 31 mmHg (35-45); ABG PH 7.47 pH Units (7.32-7.45); ABG PO2 59 mmHg (85-104); ABG TCO2 23 mEq/L (20-26); Blood Gas Modality ASSIST CONTROL; Blood Gas PEEP 5 cm H2O; Blood Gas VT 500 cc
--- NOTE | 2019-02-06 14:37 | Emergency Department Note ---
Disposition Clinical Impression: Altered mental status Disposition: Still a Patient Referrals: Julio Seals Jr, MD [Primary Care Provider] - Forms: ED Satisfaction Letter Time of Disposition: 14:36 General Adult HPI - General Chief complaint: ED Altered Mental Status Stated complaint: altered mental status Time Seen by Provider: 02/06/19 13:38 Source: family, EMS Mode of arrival: EMS Limitations: altered mental status - History of Present Illness HPI Narrative: This is simply a procedure note. Please refer to attending physician and resident for history of present illness, physical exam, MDM. Pain Scale: 0 - Related Data Home Medications Medication Instructions Recorded Confirmed Aspirin [Lo-Dose Aspirin EC] 81 mg PO DAILY 12/29/16 12/29/16 Atorvastatin Calcium [Lipitor] 80 mg PO HS 12/29/16 12/29/16 Celecoxib [Celebrex] 200 mg PO BID 12/29/16 12/29/16 Clopidogrel [Plavix] 75 mg PO DAILY 12/29/16 12/29/16 Donepezil HCl [Aricept] 10 mg PO HS 12/29/16 12/29/16 GlipiZIDE [Glipizide Xl] 5 mg PO DAILY 12/29/16 12/29/16 Lisinopril [Zestril] 20 mg PO BID 12/29/16 12/29/16 Memantine HCl 10 mg PO BID 12/29/16 12/29/16 Metformin HCl [Fortamet] 1,000 mg PO BID 12/29/16 12/29/16 amLODIPine [Norvasc] 5 mg PO DAILY 12/29/16 12/29/16 Allergies Allergy/AdvReac Type Severity Reaction Status Date / Time No Known Allergies Allergy Verified 12/29/16 07:43 Constitutional: Reports: fever Neurological: Reports: other (Altered mentation ) Past Medical History - Past Medical History Medical history: Reports: coronary artery disease, dementia, diabetes, GERD, hyperlipidemia, hypertension Surgical history: Reports: angioplasty/stent Psychiatric history: Reports: no psych history - Social History Smoking Status: Former smoker Smokeless Tobacco Status: No Alcohol use: Reports: none Drug use: Reports: none Physical Exam - General Limitations: altered mental status General appearance: other Course Vital Signs Temperature 100.8 F H 02/06/19 13:28 Pulse Rate 73 02/06/19 13:28 Respiratory Rate 33 02/06/19 13:28 Blood Pressure 117/62 02/06/19 13:28 O2 Sat by Pulse Oximetry 91 02/06/19 13:28 Temperature 100.8 F H 02/06/19 13:28 Pulse Rate 73 02/06/19 13:28 Respiratory Rate 33 02/06/19 13:28 Blood Pressure 117/62 02/06/19 13:28 O2 Sat by Pulse Oximetry 91 02/06/19 13:28 Oxygen Delivery Oxygen Delivery Nasal Cannula Procedures - Intubation Time out performed: Yes sedative: Etomidate Mg Given: 20 paralytic: Rocuronium Mg Given: 60 Laryngoscope: New ET Tube Size: 7.5 ET Tube Uncuffed: No Tube Secured Depth (cm): 22 Tube Secured Location: lips Tube Placement Confirmation: visualized tube passing through cords, equal breath sounds bilaterally, no breath sounds over epigastrium, confirmation by capnometry Patient Tolerated Procedure: well, no complications Intubation Complications: none Additional Comments: Dr. Mayo performed with Dr. Griffin as attending. Senior resident Dr. Villela assist Medical Decision Making - Lab Data Result diagrams: 02/06/19 13:30 02/06/19 13:30 Lab Results 02/06/19 02/06/19 02/06/19 Range/Units 13:30 13:30 13:30 WBC 13.8 H (4.3-11.1) K/mcL RBC 4.14 L (4.19-5.50) M/mcL Hgb 12.9 (12.9-16.9) g/dL Hct 40.1 (37.5-50.1) % MCV 96.9 (83.0-100.0) fL MCH 31.2 (28.0-33.3) pg MCHC 32.2 (31.6-35.5) g/dL RDW 12.6 (11.5-14.5) % Plt Count 232 (140-400) K/mcL MPV 11.3 (9.4-12.4) fL Immature Gran % 0.5 (0-4) % Seg Neutrophils % 86.4 % Lymphocytes % 6.9 % Monocytes % 6.1 % Eosinophils % 0.0 % Basophils % 0.1 % Neutrophils # 11.9 H (1.6-8.9) K/mcL Lymphocytes # 1.0 (0.6-4.6) K/mcL Monocytes # 0.9 (0.0-1.3) K/mcL Eosinophils # 0.0 (0.0-0.6) K/mcL Basophils # 0.0 (0.0-0.2) K/mcL PT 13.1 H (9.4-12.1) Seconds INR 1.2 APTT 30.8 (26.0-36.0) Seconds Sample Site ABG pH (7.32-7.45) pH Units ABG pCO2 (35-45) mmHg ABG pO2 (85-104) mmHg ABG HCO3 (21-27) mEq/L ABG Total CO2 (20-26) mEq/L ABG O2 Saturation (95-98) % ABG Base Excess (-2 to 3) mEq/L Nestor Test Respiration Rate O2 Delivery Device Blood Gas Modality Inspired O2 (1-15=lpm [id number]=%) Tidal Volume cc PEEP cm H2O Sodium 149 H (136-145) mEq/L Potassium 3.9 (3.5-5.1) mEq/L Chloride 115 H (98-107) mEq/L Carbon Dioxide 23 (23-29) mEq/L BUN 39 H (8-23) mg/dL Creatinine 1.17 (0.70-1.30) mg/dL Est GFR ( Amer) > 60 (> 60) Est GFR (Non-Af Amer) > 60 (> 60) BUN/Creatinine Ratio 33 H (6-26) Glucose 380 H (70-105) mg/dL Calculated Osmolality 333 H (280-300) Lactic Acid (0.5-2.2) mmol/L Calcium 8.7 (8.6-10.3) mg/dL Magnesium 2.2 (1.6-2.6) mg/dL Total Bilirubin 0.6 (0.3-1.0) mg/dL Direct Bilirubin 0.1 (0.0-0.2) mg/dL Indirect Bilirubin 0.5 (0.0-1.2) mg/dL AST 32 (13-39) Units/L ALT 7 (7-52) Units/L Alkaline Phosphatase 72 (34-104) Units/L Ammonia (16-53) mcmol/L Serum Total Protein 6.6 (6.4-8.9) g/dL Albumin 3.2 L (3.5-5.7) g/dL Globulin 3.4 (2.4-3.5) g/dL Albumin/Globulin Ratio 0.9 L (1.1-2.2) Ethyl Alcohol < 10 (Less than 10) mg/dL 02/06/19 02/06/19 02/06/19 Range/Units 13:30 14:00 14:26 WBC (4.3-11.1) K/mcL RBC (4.19-5.50) M/mcL Hgb (12.9-16.9) g/dL Hct (37.5-50.1) % MCV (83.0-100.0) fL MCH (28.0-33.3) pg MCHC (31.6-35.5) g/dL RDW (11.5-14.5) % Plt Count (140-400) K/mcL MPV (9.4-12.4) fL Immature Gran % (0-4) % Seg Neutrophils % % Lymphocytes % % Monocytes % % Eosinophils % % Basophils % % Neutrophils # (1.6-8.9) K/mcL Lymphocytes # (0.6-4.6) K/mcL Monocytes # (0.0-1.3) K/mcL Eosinophils # (0.0-0.6) K/mcL Basophils # (0.0-0.2) K/mcL PT (9.4-12.1) Seconds INR APTT (26.0-36.0) Seconds Sample Site R Radial ABG pH 7.47 H (7.32-7.45) pH Units ABG pCO2 31 L (35-45) mmHg ABG pO2 59 L (85-104) mmHg ABG HCO3 23 (21-27) mEq/L ABG Total CO2 23 (20-26) mEq/L ABG O2 Saturation 92 L (95-98) % ABG Base Excess 0 (-2 to 3) mEq/L Nestor Test Positive Respiration Rate 20 O2 Delivery Device Adult Vent Blood Gas Modality ASSIST CONTROL Inspired O2 50.0 (1-15=lpm [id number]=%) Tidal Volume 500 cc PEEP 5 cm H2O Sodium (136-145) mEq/L Potassium (3.5-5.1) mEq/L Chloride (98-107) mEq/L Carbon Dioxide (23-29) mEq/L BUN (8-23) mg/dL Creatinine (0.70-1.30) mg/dL Est GFR ( Amer) (> 60) Est GFR (Non-Af Amer) (> 60) BUN/Creatinine Ratio (6-26) Glucose (70-105) mg/dL Calculated Osmolality (280-300) Lactic Acid 1.2 (0.5-2.2) mmol/L Calcium (8.6-10.3) mg/dL Magnesium (1.6-2.6) mg/dL Total Bilirubin (0.3-1.0) mg/dL Direct Bilirubin (0.0-0.2) mg/dL Indirect Bilirubin (0.0-1.2) mg/dL AST (13-39) Units/L ALT (7-52) Units/L Alkaline Phosphatase (34-104) Units/L Ammonia 43 (16-53) mcmol/L Serum Total Protein (6.4-8.9) g/dL Albumin (3.5-5.7) g/dL Globulin (2.4-3.5) g/dL Albumin/Globulin Ratio (1.1-2.2) Ethyl Alcohol (Less than 10) mg/dL Attestation Statement - Attestation Attestation: Carissa Griffin D.O., examined this patient and my medical decision-making was reviewed with the Resident Physician. I agree with the documented findings, disposition and treatment plan as described except to the extent set forth below.
[2019-02-06] MEDS ORDERED: Piperacillin/Tazobactam 3.375 GM in 0.9 % Sodium Chloride Mini Bag 100 ML IVPB ONE (14:41)
[2019-02-06] MEDS ORDERED: levoFLOXacin 750 MG/150 ML 750 MG/150 ML BAG IVPB ONE (14:41)
[2019-02-06 14:48] LABS: Bilirubin,Urine Small (Negative); Blood,Urine Small (Negative); Clarity,Urine Turbid (Clear); Color,Urine Dark Yellow (Yellow); Glucose,Urine (UA) 500 mg/dL (Normal); Ketones,Urine Negative (Negative); Leukocyte Esterase,Urine Small (Negative); Nitrite,Urine Negative (Negative); Protein,Urine 100 mg/dL (Neg-Trace); Specific Gravity,Urine > 1.030 (1.010-1.025); Urobilinogen,Urine Normal (Normal)
[2019-02-06 14:52] LABS: RBC,Urine 15-30 per hpf (0-3); Squamous Epithelial Cell,Urine Many per lpf (None-Few); WBC,Urine 50-100 per hpf (0-3)
[2019-02-06 14:59] LABS: Amphetamine Screen,Urine Negative ng/mL (Cutoff=1000); Barbiturate Screen,Urine Negative ng/mL (Cutoff=200); Benzodiazepines Screen,Urine Negative ng/mL (Cutoff=200); Cannabinoid Screen,Urine Negative ng/mL (Cutoff = 50); Cocaine Screen,Urine Negative ng/mL (Cutoff= 300); Opiate Screen,Urine Negative ng/mL (Cutoff=300); Phencyclidine Screen,Urine Negative ng/mL (Cutoff=25)
[2019-02-06 15:04] LABS: Bacteria,Urine Few per hpf (None-Few); Granular Casts,Urine Few per lpf (None Seen); Hyaline Casts,Urine None Seen per lpf (None-Few)
[2019-02-06 17:05] LABS: Troponin I 0.04 ng/mL (< 0.04)
[2019-02-06] MEDS ORDERED: Naloxone 0.4 MG/ML INJ IVP PRN (17:47)
[2019-02-06] MEDS ORDERED: Dextrose Gel 15 GM/37.5 ML TUBE PO PRN ×2 (17:57)
[2019-02-06] MEDS ORDERED: *HR* Dextrose 50 % in Water (Syg) 50 ML SYRINGE IVP PRN ×2 (17:57→18:50)
[2019-02-06] MEDS ORDERED: D5% in Water 1,000 ML IVC PRN (17:57)
[2019-02-06] MEDS ORDERED: Artificial Tears SOLN 15 ML BOTTLE BOTH EYES PRN (17:57)
[2019-02-06 18:04] LABS: Thyroid Stimulating Hormone 1.612 mcIU/mL (0.340-5.600)
[2019-02-06 18:47] LABS: ABG Base Excess -1 mEq/L (-2 to 3); ABG HCO3 24 mEq/L (21-27); ABG Oxygen Saturation 95 % (95-98); ABG PCO2 39 mmHg (35-45); ABG PO2 75 mmHg (85-104); ABG TCO2 25 mEq/L (20-26); Blood Gas Modality AF; Blood Gas PEEP 5 cm H2O; Blood Gas VT 480 cc
--- NOTE | 2019-02-06 18:55 | Internal Med History&Physical ---
Date of Encounter: 02/06/19 Time of Encounter: 18:09 Internal Medicine - H&P: HPI Chief complaint: altered mental status Admitted From: Emergency Dept Plans for Post Hospital Care: Home History of present illness: Mr. Mcnair is a 73 year old male with past medical history of Parkinson's disease, T2 DM, hypertension, or bradycardia with a pacer who presents with altered mental status. A family member states that approximately one week ago the patient went to a nursing facility for care due to his dementia. States that around this time he was able to ambulate and able to feed himself with food cut into small pieces. Over the course of last week, patient has been having a decreased appetite and is acting "less like himself" per family member. He has had altered mentation. Has lost about 10 pounds. Although baseline he does not remember who his is. He has been less responsive and also had fevers measured to be 103 at the facility. Patient has been taking medications consistently at half-way. In the emergency department, vitals: Temperature 100.8, HR 73, RR 33, BP 117/62, 91% 4 L NC. Patient was initially tachypneic and was unable to protect his airway. Patient was intubated. Head CT did not show any acute intracranial abnormalities. Lab testing significant for WBC 13.8, sodium 149 with corrected sodium of 153, glucose of 380, serum osmolality 340. Normal lactate. Troponin of 0.04. An LP was attempted but could not be obtained. He was initially given 2 L of normal saline, then put on half normal saline drip due to hyponatremia. Patient was then admitted to the ICU status post intubation on the ventilator. Past Med Surg Social Fam HX - Past Medical History Attestation: Yes The following information was validated with the patient. Source: obtained from family Medical history: coronary artery disease, dementia, diabetes, GERD, hyperlipidemia, hypertension Psychiatric history: no psych history - Past Surgical History Surgical History: angioplasty/stent Additional surgical history: BACK SURGERY. RIGHT HAND DIGIT SURGERY - Social History Smoking Status: Former smoker Smokeless Tobacco Status: No Alcohol use: none Drug use: none - Family History Mother Living Status: Hx Family Cardiac Disorders: Yes (DE) Internal Medicine - H&P: Meds Aspirin [Lo-Dose Aspirin EC] 81 mg PO DAILY 12/29/16 [History] Atorvastatin Calcium [Lipitor] 80 mg PO HS 12/29/16 [History] Donepezil HCl [Aricept] 10 mg PO HS 12/29/16 [History] Lisinopril [Zestril] 20 mg PO BID 12/29/16 [History] Memantine HCl 10 mg PO BID 12/29/16 [History] amLODIPine [Norvasc] 5 mg PO DAILY 12/29/16 [History] Acetaminophen [Extra Strength Non-Aspirin] 1,000 mg PO BID 02/06/19 [History] Carbidopa/Levodopa ER 50/200 [Sinemet ER 50-200 Tab] 1 tab PO BID 02/06/19 [History] Metformin HCl [Fortamet] 1,000 mg PO BIDWM 02/06/19 [History] Allergy/AdvReac Type Severity Reaction Status Date / Time No Known Allergies Allergy Verified 12/29/16 07:43 ROS unobtainable: due to endotracheal tube All Systems PM: A 10-system review of systems was performed and is negative for pertinent findings except as documented above in the HPI. - Constitutional Vitals: Temp Pulse Resp BP Pulse Ox 100.8 F H 69 16 128/67 97 02/06/19 13:28 02/06/19 16:34 02/06/19 16:34 02/06/19 16:34 02/06/19 16:34 Exam: GEN: Sedated on propofol. Intubated. Nonreponsive. HEAD: Normocephalic, atraumatic. EYES: Constricted pupils.anicteric. ENT: MMM. oropharynx without erythema or drainage. NECK: Supple. No LAD. No stiffness or restricted ROM. No tracheal deviation. HEART: Regular rate and regular rhythm, normal S1/S2, no m/r/g. LUNGS: Intubated. CTAB, good air exchange bilaterally. No wheezing, rubs, or rhonchi. ABDO: Soft, nontender, nondistended with active bowel sounds. : No suprapubic tenderness or CVA tenderness. BACK: No obvious stepoffs or deformities. EXT: Without cyanosis, clubbing or edema. SKIN: Warm and dry without any rash. NEURO: Unable to assess due to sedation. PSYCH: Unable to assess due to sedation. Internal Med - H&P Results - Labs CBC & Chem 7: 02/06/19 13:30 02/06/19 13:30 Labs: Short CBC 02/06/19 Range/Units 13:30 WBC 13.8 H (4.3-11.1) K/mcL Hgb 12.9 (12.9-16.9) g/dL Hct 40.1 (37.5-50.1) % Plt Count 232 (140-400) K/mcL Neutrophils # 11.9 H (1.6-8.9) K/mcL BMP 02/06/19 13:30 Sodium 149 H Potassium 3.9 Chloride 115 H Carbon Dioxide 23 BUN 39 H Creatinine 1.17 Glucose 380 H Calcium 8.7 Cardiac Enzymes 02/06/19 Range/Units 13:30 Troponin I 0.04 H* (< 0.04) ng/mL Liver Function 02/06/19 Range/Units 13:30 Total Bilirubin 0.6 (0.3-1.0) mg/dL Direct Bilirubin 0.1 (0.0-0.2) mg/dL AST 32 (13-39) Units/L ALT 7 (7-52) Units/L Alkaline Phosphatase 72 (34-104) Units/L Albumin 3.2 L (3.5-5.7) g/dL Urine 02/06/19 Range/Units 14:40 Urine Color Dark Yellow (Yellow) Urine Clarity Turbid A (Clear) Urine pH 5.0 (5.0-8.0) pH Units Ur Specific [place] > 1.030 H (1.010-1.025) Urine Protein 100 H (Neg-Trace) mg/dL Urine Glucose (UA) 500 H (Normal) mg/dL - ABG Interpretation ABG results: 02/06/19 14:26 ABG pH 7.47 H ABG pCO2 31 L ABG pO2 59 L ABG HCO3 23 ABG Total CO2 23 ABG O2 Saturation 92 L ABG Base Excess 0 - Impressions ITS Impressions Chest X-Ray 02/06/19 13:38 IMPRESSION: Increased lung markings, right more than left, may be related to mild pulmonary vascular congestion versus bronchitis. D/ / Hitesh Goins MD / Hitesh Goins MD Interpreting Provider: Hitesh Goins MD Head CT 02/06/19 13:39 IMPRESSION: No acute intracranial abnormality. D/ / Steven Devlin MD / Steven Devlin MD Interpreting Provider: Steven Devlin MD Chest X-Ray 02/06/19 14:19 IMPRESSION: Endotracheal tube placement in appropriate location. D/ / 02/06/2019 14:49:57 Matthieu Araujo MD / natan Interpreting Provider: Matthieu Araujo MD - Assessment and Plan (1) Sepsis Current Visit: Yes Status: Acute Assessment and plan: Patient presented with AMS and was febrile, tachycardic, tachypneic. Also WBC of 13. Meets 4/4 SIRS criteria. Source of infection unknown, pending cultures. Urine showed some LE and few bacteria, unlikely UTI as sole cause. Patient was intubated out of concern for inability to protect airway. Head CT and CXR showed no acute abnormalities. Initially treated with vanc, zosyn, levaquin Plan: - VBG within normal limits upon arrival to ICU - Antibiotics changed to vancomycin, cefepime - Blood and urine cultures are pending - Currently on D5W at 100 ml/hr for hydration and hypernatremia - Will check CBC, CMP, VBG, lactate, coags, trop in the morning. Qualifiers: Sepsis type: sepsis due to unspecified organism Sepsis acute organ dysfunction status: unspecified Qualified Code(s): A41.9 - Sepsis, unspecified organism (2) Hypernatremia Current Visit: Yes Status: Acute Assessment and plan: Presented with a sodium of 149, corrected to 153. Patient was give 2L NS, then started on half normal saline. - Currently on D5W at 100mls/hr rate to correct Na (3) Airway compromise Current Visit: Yes Status: Acute Assessment and plan: Was intubated in the ED out of concern for airway compromise. Patient was tachypneic and had increased respiratory effort. - Patient underwent RSI with verification of tube placement - Currently on ventilator: FiO2 40, PEEP 5, TV 400, RR 12 - Discontinued propofol sedation - Started on fentanyl 50 mcg IV PRN q1h (4) Hyperglycemia due to type 2 diabetes mellitus Current Visit: Yes Status: Acute Assessment and plan: Patient presented with glucose >300 with elevated serum osmolality. Possible HHS or diabetic coma. 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 - Holding home meds: levadopa/carbidopa, donepezil, memantine Qualifiers: Dementia type: unspecified type Dementia behavioral disturbance: with behavioral disturbance Qualified Code(s): F03.91 - Unspecified dementia with behavioral disturbance (6) Dehydration Current Visit: Yes Status: Acute Assessment and plan: Appeared clinically dehydrated upon presentation: - On D5W maintenance rate 100mls/hr (7) DVT prophylaxis Current Visit: Yes Status: Acute Assessment and plan: Will hold all of home meds for now. DVT ppx: lovenox 40 mg SQ Activity: as tolerated FEN: on MFs, replete electrolytes as necessary, initiating TFs GI ppx: pepcid Lines: 2 PIV in b/l ACs Consults: none Code: DNR CC Dispo: pending further testing - Time Spent With Patient Total time spent is greater than 50% in coordination of care (as documented) at patient's floor/unit and/or counseling patient: 25 - 35 minutes
[2019-02-06 19:48] LABS: VBG HCO3 25 mEq/L (21-27); VBG PCO2 46 mmHg (41-51); VBG PH 7.34 pH Units (7.32-7.42); VBG PO2 53 mmHg (25-50)
[2019-02-06 20:00] LABS: BUN/Creatinine Ratio 36 (6-26); Blood Urea Nitrogen 38 mg/dL (8-23); Carbon Dioxide 21 mEq/L (23-29); Chloride 119 mEq/L (98-107); Glucose 405 mg/dL (70-105); Osmolality,Calculated 338 (280-300); Potassium 4.1 mEq/L (3.5-5.1); Sodium 151 mEq/L (136-145); eGFR For African Americans > 60 (> 60); eGFR For Non-African Americans > 60 (> 60)
[2019-02-06] MEDS: Insulin Human Regular 100 UNIT in 0.9 % Sodium Chloride 100 ML IVC SCH (20:00)
[2019-02-06] MEDS: Insulin LISPRO 300 UNITS/3 ML VIAL SQ SCH (20:19)
[2019-02-06] MEDS: Famotidine 20 MG/2 ML VIAL IVP SCH (20:21)
[2019-02-06] MEDS: Chlorhexidine Rinse 15 ML MOUTHWASH MM SCH (20:21)
[2019-02-06] MEDS: Cefepime HCl 2,000 MG in Water for inj. (sterile) 20 ML IVP SCH (20:21)
[2019-02-06] MEDS: Artificial Tears SOLN 15 ML BOTTLE BOTH EYES SCH (20:21)
[2019-02-06] MEDS ORDERED: Insulin DETEMIR 100 UNIT/ML X5UNITS SQ SCH (21:00)
[2019-02-07] MEDS: Artificial Tears SOLN 15 ML BOTTLE BOTH EYES SCH ×7 (00:06→23:19)
[2019-02-07] MEDS: Insulin LISPRO 300 UNITS/3 ML VIAL SQ SCH ×2 (00:06→05:07)
[2019-02-07 00:25] LABS: BUN/Creatinine Ratio 41 (6-26); Blood Urea Nitrogen 38 mg/dL (8-23); Calcium 8.2 mg/dL (8.6-10.3); Carbon Dioxide 18 mEq/L (23-29); Chloride 123 mEq/L (98-107); Glucose 182 mg/dL (70-105); Osmolality,Calculated 330 (280-300); Potassium 3.9 mEq/L (3.5-5.1); Sodium 153 mEq/L (136-145); eGFR For African Americans > 60 (> 60); eGFR For Non-African Americans > 60 (> 60)
[2019-02-07 04:35] LABS: ABG Base Excess -1 mEq/L (-2 to 3); ABG HCO3 24 mEq/L (21-27); ABG Oxygen Saturation 99 % (95-98); ABG PCO2 36 mmHg (35-45); ABG PH 7.42 pH Units (7.32-7.45); ABG PO2 128 mmHg (85-104); ABG TCO2 25 mEq/L (20-26); Blood Gas Modality PRVC; Blood Gas PEEP 5 cm H2O; Blood Gas VT 480 cc
[2019-02-07 05:01] LABS: VBG HCO3 23 mEq/L (21-27); VBG PCO2 42 mmHg (41-51); VBG PH 7.34 pH Units (7.32-7.42); VBG PO2 57 mmHg (25-50)
[2019-02-07 05:03] LABS: Hematocrit 37.9 % (37.5-50.1); Hemoglobin 11.6 g/dL (12.9-16.9); Mean Corpuscular HGB Conc 30.6 g/dL (31.6-35.5); Mean Corpuscular Hemoglobin 30.4 pg (28.0-33.3); Mean Corpuscular Volume 99.5 fL (83.0-100.0); Mean Platelet Volume 11.5 fL (9.4-12.4); Platelet Count 209 K/mcL (140-400); Red Blood Count 3.81 M/mcL (4.19-5.50); Red Cell Distribution Width 12.7 % (11.5-14.5); White Blood Count 13.7 K/mcL (4.3-11.1)
[2019-02-07 05:10] LABS: INR 1.1; Prothrombin Time 12.4 Seconds (9.4-12.1)
[2019-02-07 05:16] LABS: Alanine Aminotransferase 22 Units/L (7-52); Albumin 2.9 g/dL (3.5-5.7); Alkaline Phosphatase 70 Units/L (34-104); Aspartate Amino Transferase 30 Units/L (13-39); BUN/Creatinine Ratio 41 (6-26); Bilirubin,Direct 0.1 mg/dL (0.0-0.2); Bilirubin,Indirect 0.5 mg/dL (0.0-1.2); Bilirubin,Total 0.6 mg/dL (0.3-1.0); Blood Urea Nitrogen 37 mg/dL (8-23); Carbon Dioxide 23 mEq/L (23-29); Chloride 122 mEq/L (98-107); Globulin 2.9 g/dL (2.4-3.5); Glucose 162 mg/dL (70-105); Magnesium 2.2 mg/dL (1.6-2.6); Osmolality,Calculated 328 (280-300); Phosphorous 2.6 mg/dL (2.7-4.5); Potassium 3.6 mEq/L (3.5-5.1); Sodium 153 mEq/L (136-145); Total Protein 5.8 g/dL (6.4-8.9); eGFR For African Americans > 60 (> 60); eGFR For Non-African Americans > 60 (> 60)
[2019-02-07 05:17] LABS: Troponin I 0.03 ng/mL (< 0.04)
[2019-02-07] MEDS: *HR* Enoxaparin 40 MG/0.4 ML SYRINGE SQ SCH (05:29)
[2019-02-07] MEDS: D5% in Water 1,000 ML IVC SCH ×4 (08:05→22:57)
[2019-02-07] MEDS: Famotidine 20 MG/2 ML VIAL IVP SCH ×2 (08:06→18:07)
[2019-02-07] MEDS: Cefepime HCl 2,000 MG in Water for inj. (sterile) 20 ML IVP SCH (08:16)
[2019-02-07] MEDS: Chlorhexidine Rinse 15 ML MOUTHWASH MM SCH ×2 (08:16→19:59)
--- NOTE | 2019-02-07 09:19 | Pulmonology Consult Note ---
Date of Encounter: 02/07/19 Time of Encounter: 09:00 Assessment and Plan (1) Acute respiratory failure with hypoxia Current Visit: Yes Status: Acute Patient presenting with acute respiratory failure with hypoxia most likely due to severe encephalopathy chest x-ray did not show any evidence of significant pneumonia to try a low tidal volume strategy patient underwent spontaneous breathing trial. Patient cannot be extubated because of significant ence phalopathy. Once encephalopathy is corrected probably will be able to extubate. (2) Acute metabolic encephalopathy Current Visit: Yes Status: Acute Patient presenting with acute metabolic encephalopathy secondary to dehydration, sepsis, hyponatremia since patient came that the fever and altered mental status is reasonable to rule out intracranial infection like meningitis and encephalitis to cover with broad-spectrum antibiotics and antiviral. I personally did not the lumbar puncture CSF studies were sent. We will de-esca late based on see is a biochemistry and the Gram stain. Other multifactorial causes might be worsening Parkinson's disease and worsening dementia in the setting of sepsis, dehydration and hypernatremia Will reassess after once a metabolic component is corrected. Neurology was consulted EEG was done with some focal seizure-like activity. Appreciate neurology recommendations. (3) Dehydration Current Visit: Yes Status: Acute Patient with intracellular dehydration with hyponatremia sodium is slowly trending down with free water we will check sodium tonight. (4) Sepsis Current Visit: Yes Status: Acute Patient does not have a clear source possible UTI possible intracranial infection to cover with broad-spectrum antibiotics that culture pending not much secretions Qualifiers: Sepsis type: sepsis due to unspecified organism Sepsis acute organ dysfunction status: unspecified Qualified Code(s): A41.9 - Sepsis, unspecified organism (5) DVT prophylaxis Current Visit: Yes Status: Acute Continue current regimen. History of Present Illness Consult date: 02/07/19 Requesting physician: Chuy Saenz Reason for consult: other (altered mental status ) Chief complaint: Altered mental status History of present illness: 73-year-old male with past medical history significant for diabetes, coronary artery disease, dementia, Parkinson's disease has been admitted to the long-term facility for rehabilitation for past few days he was more lethargic with nonver bal for the last week he used to walk and talk baseline . Patient was giving the history denies much confusion clouding of consciousness not sure he was agitated and he was given medications. Patient presented to the ER he had high temperature with altered mental status and lumbar puncture was attempted in the ER was unsuccessful patient was transferred to with altered mental status most likely due to hyponatremia and possible sepsis patient was started on broad-spectrum antibiotics.. After coming to the ICU [facility] infection was suspected that antibiotic choices were changed lumbar puncture was done CSF fluid was obtained. Sent for studies. Neurology was consulted and EEG was done suspicious seizure-like activity. Patient is covered for pulmonary infection and suspected UTI. Past Med Surg Social Fam HX - Past Medical History Medical history: coronary artery disease, dementia, diabetes, GERD, hyperlipidemia, hypertension Psychiatric history: no psych history - Past Surgical History Surgical History: angioplasty/stent Additional surgical history: BACK SURGERY. RIGHT HAND DIGIT SURGERY - Social History Smoking Status: Former smoker Smokeless Tobacco Status: No Alcohol use: none Drug use: none - Family History Mother Living Status: Hx Family Cardiac Disorders: Yes (PR) Medications and Allergies Aspirin [Lo-Dose Aspirin EC] 81 mg PO DAILY 12/29/16 [History] Atorvastatin Calcium [Lipitor] 80 mg PO HS 12/29/16 [History] Donepezil HCl [Aricept] 10 mg PO HS 12/29/16 [History] Lisinopril [Zestril] 20 mg PO BID 12/29/16 [History] Memantine HCl 10 mg PO BID 12/29/16 [History] amLODIPine [Norvasc] 5 mg PO DAILY 12/29/16 [History] Acetaminophen [Extra Strength Non-Aspirin] 1,000 mg PO BID 02/06/19 [History] Carbidopa/Levodopa ER 50/200 [Sinemet ER 50-200 Tab] 1 tab PO BID 02/06/19 [History] Metformin HCl [Fortamet] 1,000 mg PO BIDWM 02/06/19 [History] Allergy/AdvReac Type Severity Reaction Status Date / Time No Known Allergies Allergy Verified 12/29/16 07:43 ROS unobtainable: due to mental status All Systems: The remainder of the systems were reviewed and are negative Physical Examination Vital Signs: Vital Signs, Last 4 Hours Temp Pulse Resp BP Pulse Ox 02/07/19 08:11 97.6 F 02/07/19 08:00 60 20 102/56 99 02/07/19 07:28 21 113/63 98 02/07/19 07:00 60 20 113/63 98 02/07/19 06:00 64 22 108/56 99 General appearance: no acute distress, agitated (Episodically) ENT: oropharynx moist Effort: mildly labored Auscultation: bilateral: diminished breath sounds (diminshed in the bases ) Cardiovascular: regular rate and rhythm Gastrointestinal: normoactive bowel sounds Extremities: no cyanosis, no edema unable to assess due to mental status Ventilator Settings Ventilator Settings: Ventilator Settings, Last 8 Hours Ventilator Tidal Volume 480 Setting Ventilator Tidal Volume 480 Setting Ventilator Tidal Volume 480 Setting Ventilator Tidal Volume 480 Setting Ventilator Tidal Volume 480 Setting Ventilator Tidal Volume 480 Setting Ventilator Tidal Volume 480 Setting Ventilator Tidal Volume 480 Setting Ventilator Tidal Volume 480 Setting Ventilator Respiratory Rate 12 Setting Ventilator Respiratory Rate 12 Setting Ventilator Respiratory Rate 12 Setting Ventilator Respiratory Rate 12 Setting Ventilator Respiratory Rate 12 Setting Ventilator Respiratory Rate 12 Setting Ventilator Respiratory Rate 12 Setting Ventilator Respiratory Rate 12 Setting Ventilator Respiratory Rate 12 Setting Actual Respiratory Rate 20 Actual Respiratory Rate 20 Actual Respiratory Rate 20 Actual Respiratory Rate 20 Actual Respiratory Rate 22 Actual Respiratory Rate 15 Actual Respiratory Rate 13 Actual Respiratory Rate 14 Actual Respiratory Rate 16 Actual Respiratory Rate 14 Actual Respiratory Rate 17 Positive End Expiratory 5 Pressure Positive End Expiratory 5 Pressure Positive End Expiratory 5 Pressure Positive End Expiratory 5 Pressure Positive End Expiratory 5 Pressure Positive End Expiratory 5 Pressure Positive End Expiratory 5 Pressure Positive End Expiratory 5 Pressure Positive End Expiratory 5 Pressure Positive End Expiratory 5 Pressure Positive End Expiratory 5 Pressure Positive End Expiratory 5 Pressure Peak Inspiratory Airway 10 Pressure Peak Inspiratory Airway 10 Pressure Peak Inspiratory Airway 11 Pressure Peak Inspiratory Airway 10 Pressure Peak Inspiratory Airway 10 Pressure Peak Inspiratory Airway 22 Pressure Peak Inspiratory Airway 20 Pressure Peak Inspiratory Airway 20 Pressure Peak Inspiratory Airway 17 Pressure Peak Inspiratory Airway 19 Pressure Peak Inspiratory Airway 18 Pressure Results - Laboratory Findings CBC and BMP: 02/07/19 04:37 02/07/19 12:50 ABG ABG pH 7.42 pH Units (7.32-7.45) 02/07/19 04:31 ABG pCO2 36 mmHg (35-45) 02/07/19 04:31 ABG pO2 128 mmHg (85-104) H 02/07/19 04:31 ABG O2 Saturation 99 % (95-98) H 02/07/19 04:31 PT/INR, D-dimer PT 12.4 Seconds (9.4-12.1) H 02/07/19 04:37 Abnormal lab findings: Abnormal lab results WBC 13.7 K/mcL (4.3-11.1) H 02/07/19 04:37 RBC 3.81 M/mcL (4.19-5.50) L 02/07/19 04:37 Hgb 11.6 g/dL (12.9-16.9) L 02/07/19 04:37 MCHC 30.6 g/dL (31.6-35.5) L 02/07/19 04:37 Neutrophils # 11.9 K/mcL (1.6-8.9) H 02/06/19 13:30 PT 12.4 Seconds (9.4-12.1) H 02/07/19 04:37 ABG pH 7.47 pH Units (7.32-7.45) H 02/06/19 14:26 ABG pCO2 31 mmHg (35-45) L 02/06/19 14:26 ABG pO2 128 mmHg (85-104) H 02/07/19 04:31 ABG O2 Saturation 99 % (95-98) H 02/07/19 04:31 VBG pO2 57 mmHg (25-50) H 02/07/19 04:54 Sodium 153 mEq/L (136-145) H 02/07/19 04:37 Chloride 122 mEq/L (98-107) H 02/07/19 04:37 Carbon Dioxide 18 mEq/L (23-29) L 02/06/19 23:59 BUN 37 mg/dL (8-23) H 02/07/19 04:37 BUN/Creatinine Ratio 41 (6-26) H 02/07/19 04:37 Glucose 162 mg/dL (70-105) H 02/07/19 04:37 POC Glucose 110 mg/dL (70-99) H 02/07/19 01:11 Serum Osmolality 340 mOsm/kg (280-300) H 02/06/19 13:30 Calculated Osmolality 328 (280-300) H 02/07/19 04:37 Calcium 8.0 mg/dL (8.6-10.3) L 02/07/19 04:37 Phosphorus 2.6 mg/dL (2.7-4.5) L 02/07/19 04:37 Troponin I 0.04 ng/mL (< 0.04) H* 02/06/19 13:30 Serum Total Protein 5.8 g/dL (6.4-8.9) L 02/07/19 04:37 Albumin 2.9 g/dL (3.5-5.7) L 02/07/19 04:37 Albumin/Globulin Ratio 1.0 (1.1-2.2) L 02/07/19 04:37 Urine Clarity Turbid (Clear) A 02/06/19 14:40 Ur Specific [place] > 1.030 (1.010-1.025) H 02/06/19 14:40 Urine Protein 100 mg/dL (Neg-Trace) H 02/06/19 14:40 Urine Glucose (UA) 500 mg/dL (Normal) H 02/06/19 14:40 Urine Blood Small (Negative) H 02/06/19 14:40 Urine Bilirubin Small (Negative) H 02/06/19 14:40 Ur Leukocyte Esterase Small (Negative) H 02/06/19 14:40 Urine Microscopic RBC 15-30 per hpf (0-3) H 02/06/19 14:40 Urine Microscopic WBC 50-100 per hpf (0-3) H 02/06/19 14:40 Ur Squamous Epith Cells Many per lpf (None-Few) H 02/06/19 14:40 Granular Casts Few per lpf (None Seen) H 02/06/19 14:40 Ur Culture Indicated? YES (NO) A 02/06/19 14:40 - Microbiology Findings Microbiology Findings: Microbiology, Last 48 Hours 02/06/19 14:40 Urine Culture - Preliminary Urine,Clean Catch Culture is incubating. 02/06/19 14:00 Blood Culture - Preliminary Peripheral Venipuncture Culture is incubating and being continuously monitored for growth. Final report to follow. 02/06/19 13:30 Blood Culture - Preliminary Peripheral Venipuncture Culture is incubating and being continuously monitored for growth. Final report to follow. - Clinical Findings Intake & Output: Intake & Output 02/06/19 02/07/19 02/07/19 23:59 07:59 15:59 Intake Total 220.0 / 2220.0 1295.3 / 1298.8 3.5 / 1298.8 Output Total 200 / 300 300 / 550 250 / 550 Balance 20.0 / 1920.0 995.3 / 748.8 -246.5 / 748.8 Weight 62.8 kg Consult Discharge Plan - Plan Referrals: Julio Seals Jr, MD [Primary Care Provider] - Critical Care Time Critical Care Time: Yes Total Critical Care Time: 40 Attestation: I spent 40 minutes of Critical Care time with this patient. It involved decision making of high complexity to assess, manipulate, and support vital organ system failure and/or to prevent further life threatening deterioration of the patient's condition. The time involved in the performance of separately reportable procedures was not counted toward critical care time.
[2019-02-07] MEDS ORDERED: Water for inj. (sterile) 20 ML IV ONE (12:53)
[2019-02-07] MEDS: cefTRIAXone 2,000 MG in Water for inj. (sterile) 20 ML IVP SCH (12:55)
[2019-02-07] MEDS: Ampicillin 2 GM in 0.9 % Sodium Chloride Mini Bag 100 ML IVPB SCH ×3 (12:56→22:57)
[2019-02-07] MEDS: *HR* FentaNYL (PF) 100 MCG/2 ML VIAL IVP PRN ×2 (13:03→17:00)
--- NOTE | 2019-02-07 13:15 | Internal Med Progress Note ---
Hospitalist Progress Note - Encounter Date of Encounter: 02/07/19 Time of Encounter: 13:15 - Subjective Interval History: Patient was seen and examined at bedside. No acute events overnight. Patient is currently intubated and on a ventilator. Patient opened his eyes in response to voice and chest rub. Patient did not verbalize any responses. Does not appear to be in any discomfort or pain. - Exam Vitals: Temp Pulse Resp BP Pulse Ox 98.5 F 62 25 127/80 94 02/07/19 11:00 02/07/19 12:00 02/07/19 12:04 02/07/19 12:00 02/07/19 12:04 Exam: GEN: Intubated on ventilator. Nonreponsive. HEAD: Normocephalic, atraumatic. EYES: Constricted pupils.anicteric. ENT: MMM. oropharynx without erythema or drainage. NECK: Supple. No LAD. No stiffness or restricted ROM. No tracheal deviation. HEART: Regular rate and regular rhythm, normal S1/S2, no m/r/g. LUNGS: Intubated. CTAB, good air exchange bilaterally. No wheezing, rubs, or rhonchi. ABDO: Soft, nontender, nondistended with active bowel sounds. : No suprapubic tenderness or CVA tenderness. BACK: No obvious stepoffs or deformities. EXT: Without cyanosis, clubbing or edema. SKIN: Warm and dry without any rash. NEURO: GCS 8. PSYCH: Unable to assess - Assessment and Plan (1) Sepsis Current Visit: Yes Status: Acute Assessment and Plan: Patient presented with AMS and was febrile, tachycardic, tachypneic. Also WBC of 13. Meets 4/4 SIRS criteria. Source of infection unknown, pending cultures. Urine showed some LE and few bacteria, unlikely UTI as sole cause. Patient was intubated out of concern for inability to protect airway. Head CT and CXR showed no acute abnormalities. Initially treated with vanc, zosyn, levaquin Plan: - VBG within normal limits upon arrival to ICU - Antibiotics changed from vancomycin, cefepime to vanc, ceftriaxone, ampicillin for elderly meningitis - Blood and urine cultures are pending - Currently on D5W at 100 ml/hr for hydration and hypernatremia - Will perform LP today - Pulmonary/ICU consulted and will take over care for the patient (2) Acute respiratory failure with hypoxia Current Visit: Yes Status: Acute Assessment and Plan: Patient was intubated for airway protection in the ED, requiring minimal O2 support - Currently on ventilator, transitioned to CPAP - AC/VC low tidal volume (3) Acute metabolic encephalopathy Current Visit: Yes Status: Acute Assessment and Plan: Patient at baseline has dementia, was acting unlike himself for the last week, becoming more lethargic - DC'ed propofol started in the ED - Today GCS 8 - Started PRN pain control with fentanyl 50mcg PRN - Will correct hypernatremia and hyperglycemia as outlined - Assess mental status as electrolyte and metabolic disturbances resolve - Neurology consulted, pending recs (4) Hypernatremia Current Visit: Yes Status: Acute Assessment and Plan: Presented with a sodium of 149, corrected to 153. Patient was give 2L NS, then started on half normal saline. - Currently on D5W at 100mls/hr rate to correct Na (5) Airway compromise Current Visit: Yes Status: Acute Assessment and Plan: Was intubated in the ED out of concern for airway compromise. Patient was tachypneic and had increased respiratory effort. - Patient underwent RSI with verification of tube placement - Currently on ventilator: FiO2 40, PEEP 5, TV 400, RR 12 - Discontinued propofol sedation - Started on fentanyl 50 mcg IV PRN q1h (6) Hyperglycemia due to type 2 diabetes mellitus Current Visit: Yes Status: Acute Assessment and Plan: Patient presented with glucose >300 with elevated serum osmolality. Possible HHS or diabetic coma. Plan: - Started on insulin drip to control BG (7) Dementia Current Visit: Yes Status: Acute Assessment and Plan: History of Parkinson's dementia. - Holding home meds: levadopa/carbidopa, donepezil, memantine (8) Dehydration Current Visit: Yes Status: Acute Assessment and Plan: Appeared clinically dehydrated upon presentation: - On D5W maintenance rate 100mls/hr DVT Prophylaxis: DVT ppx: lovenox 40 mg SQ Activity: as tolerated FEN: on MFs, replete electrolytes as necessary, initiating TFs GI ppx: pepcid Lines: 2 PIV in b/l ACs Consults: none Code: DNR CC Dispo: pending further testing - Time Spent with Patient Total time spent is greater than 50% in coordination of care (as documented) at patient's floor/unit and/or counseling patient: less than 15 minutes Plan of Care Discussed with: patient Internal Medicine: Result - Labs CBC & Chem 7: 02/07/19 04:37 02/07/19 12:50 Labs: Short CBC 02/06/19 02/07/19 Range/Units 13:30 04:37 WBC 13.8 H 13.7 H (4.3-11.1) K/mcL Hgb 12.9 11.6 L (12.9-16.9) g/dL Hct 40.1 37.9 (37.5-50.1) % Plt Count 232 209 (140-400) K/mcL Neutrophils # 11.9 H (1.6-8.9) K/mcL BMP 02/06/19 02/06/19 02/06/19 13:30 19:25 23:59 Sodium 149 H 151 H 153 H Potassium 3.9 4.1 3.9 Chloride 115 H 119 H 123 H Carbon Dioxide 23 21 L 18 L BUN 39 H 38 H 38 H Creatinine 1.17 1.06 0.93 Glucose 380 H 405 H 182 H Calcium 8.7 8.0 L 8.2 L 02/07/19 04:37 Sodium 153 H Potassium 3.6 Chloride 122 H Carbon Dioxide 23 BUN 37 H Creatinine 0.91 Glucose 162 H Calcium 8.0 L Cardiac Enzymes 02/06/19 02/07/19 Range/Units 13:30 04:37 Troponin I 0.04 H* 0.03 (< 0.04) ng/mL Liver Function 02/06/19 02/07/19 Range/Units 13:30 04:37 Total Bilirubin 0.6 0.6 (0.3-1.0) mg/dL Direct Bilirubin 0.1 0.1 (0.0-0.2) mg/dL AST 32 30 (13-39) Units/L ALT 7 22 (7-52) Units/L Alkaline Phosphatase 72 70 (34-104) Units/L Albumin 3.2 L 2.9 L (3.5-5.7) g/dL Urine 02/06/19 Range/Units 14:40 Urine Color Dark Yellow (Yellow) Urine Clarity Turbid A (Clear) Urine pH 5.0 (5.0-8.0) pH Units Ur Specific [place] > 1.030 H (1.010-1.025) Urine Protein 100 H (Neg-Trace) mg/dL Urine Glucose (UA) 500 H (Normal) mg/dL - ABG Interpretation ABG results: ABG ABG pH 7.42 pH Units (7.32-7.45) 02/07/19 04:31 ABG pCO2 36 mmHg (35-45) 02/07/19 04:31 ABG pO2 128 mmHg (85-104) H 02/07/19 04:31 ABG O2 Saturation 99 % (95-98) H 02/07/19 04:31 PT/INR, D-dimer PT 12.4 Seconds (9.4-12.1) H 02/07/19 04:37 - Impressions Impressions Chest X-Ray 02/06/19 13:38 IMPRESSION: Increased lung markings, right more than left, may be related to mild pulmonary vascular congestion versus bronchitis. D/ / Hitesh Goins MD / Hitesh Goins MD Interpreting Provider: Hitesh Goins MD Head CT 02/06/19 13:39 IMPRESSION: No acute intracranial abnormality. D/ / Steven Devlin MD / Steven Devlin MD Interpreting Provider: Steven Devlin MD Chest X-Ray 02/06/19 14:19 IMPRESSION: Endotracheal tube placement in appropriate location. D/ / 02/06/2019 14:49:57 Matthieu Araujo MD / natan Interpreting Provider: Matthieu Araujo MD Consult Discharge Plan - Plan Referrals: Julio Seals Jr, MD [Primary Care Provider] - (1) Sepsis Qualifiers: Sepsis type: sepsis due to unspecified organism Sepsis acute organ dysfunction status: unspecified Qualified Code(s): A41.9 - Sepsis, unspecified organism (6) Hyperglycemia due to type 2 diabetes mellitus Qualifiers: Diabetes mellitus alf insulin use: without alf use Qualified Code(s): E11.65 - Type 2 diabetes mellitus with hyperglycemia (7) Dementia Qualifiers: Dementia type: unspecified type Dementia behavioral disturbance: with behavioral disturbance Qualified Code(s): F03.91 - Unspecified dementia with behavioral disturbance
[2019-02-07 13:30] LABS: BUN/Creatinine Ratio 41 (6-26); Blood Urea Nitrogen 35 mg/dL (8-23); Calcium 8.3 mg/dL (8.6-10.3); Carbon Dioxide 22 mEq/L (23-29); Chloride 119 mEq/L (98-107); Glucose 178 mg/dL (70-105); Osmolality,Calculated 318 (280-300); Potassium 3.6 mEq/L (3.5-5.1); Sodium 148 mEq/L (136-145); eGFR For African Americans > 60 (> 60); eGFR For Non-African Americans > 60 (> 60)
--- NOTE | 2019-02-07 14:55 | Neurology - Consult Note ---
<Giuseppe Luna - Last Filed: 02/07/19 15:39> Date of Encounter: 02/07/19 Time of Encounter: 14:30 Assessment and Plan (1) Altered mental status Current Visit: Yes Status: Acute Unable to perform accurate neurological examination due to patient sedation. Recommend Lumbar puncture for ruling out meningitis. Recommend EEG to evaluate f or encephalopathy or seizure activity. Consider MRI pending results of EEG and Lumbar Puncture. Thank you for consult, will continue to follow. Case discussed with Dr. Nunez, attending neurologist. Qualifiers: Altered mental status type: unspecified Qualified Code(s): R41.82 - Altered mental status, unspecified History of Present Illness Chief complaint: Altered Mental Status HPI: Mr. Mcnair is a 73 year old male with past medical history pertinent for Parkinsons Disease, Diabetes Mellitus Type 2, Hypertension, and bradycardia with pacer, admitted from [facility] for AMS, dehydration and signs of sepsis. On interview today patient is intubated without caregiver at bedside to provide collateral information. Past Med Surg Social Fam HX - Past Medical History Medical history: coronary artery disease, dementia, diabetes, GERD, hyperlipidemia, hypertension Psychiatric history: no psych history - Past Surgical History Surgical History: angioplasty/stent Additional surgical history: BACK SURGERY. RIGHT HAND DIGIT SURGERY - Social History Smoking Status: Former smoker Smokeless Tobacco Status: No Alcohol use: none Drug use: none - Family History Mother Living Status: Hx Family Card[place] Disorders: [place]) Medications and Allergies Aspirin [Lo-Dose Aspirin EC] 81 mg PO DAILY 12/29/16 [History] Atorvastatin Calcium [Lipitor] 80 mg PO HS 12/29/16 [History] Donepezil HCl [Aricept] 10 mg PO HS 12/29/16 [History] Lisinopril [Zestril] 20 mg PO BID 12/29/16 [History] Memantine HCl 10 mg PO BID 12/29/16 [History] amLODIPine [Norvasc] 5 mg PO DAILY 12/29/16 [History] Acetaminophen [Extra Strength Non-Aspirin] 1,000 mg PO BID 02/06/19 [History] Carbidopa/Levodopa ER 50/200 [Sinemet ER 50-200 Tab] 1 tab PO BID 02/06/19 [History] Metformin HCl [Fortamet] 1,000 mg PO BIDWM 02/06/19 [History] Allergy/AdvReac Type Severity Reaction Status Date / Time No Known Allergies Allergy Verified 12/29/16 07:43 ROS unobtainable: due to endotracheal tube All Systems: The remainder of the systems were reviewed and are negative Physical Examination - Vital Signs Vital Signs: Initial Vital Signs Temp Pulse Resp BP Pulse Ox 100.8 F H 73 33 117/62 91 02/06/19 13:28 02/06/19 13:28 02/06/19 13:28 02/06/19 13:28 02/06/19 13:28 - Exam Exam: Exam: GENERAL: Comfortable in no acute distress HEENT: MMM oropharynx without erythema or drainage LUNGS: Intubated, CTA HEART: RRR, S1 S2 Audible, no murmur EXTREMITIES: No Pedal edema. DETAILED NEUROLOGICAL EXAMINATION: Exam findings limited due to endotracheal intubation MENTAL STATUS: Unable to assess mental Status due to intubation. Cranial Nerve Examination: Unable to assess due to sedation Upper limbs Motor: unable to assess due to sedation Lower limbs Motor: unable to assess due to sedation Coordination: Unable to assess due to sedation Sensory system: Unable to assess due to sedation Pain- does not grimace or recoil from painful stimuli Deep tendon reflexes: Diminished DTR's in bilateral lower extremities equal on both sides, No evidence of Babinski. Brisk upper extremity reflexes No sign of meningeal irritation Gait Examination: Deferred. - Constitutional General appearance: acutely ill Results - Laboratory Findings CBC and BMP: 02/07/19 04:37 02/07/19 12:50 Abnormal lab findings: Abnormal lab results WBC 13.7 K/mcL (4.3-11.1) H 02/07/19 04:37 RBC 3.81 M/mcL (4.19-5.50) L 02/07/19 04:37 Hgb 11.6 g/dL (12.9-16.9) L 02/07/19 04:37 MCHC 30.6 g/dL (31.6-35.5) L 02/07/19 04:37 Neutrophils # 11.9 K/mcL (1.6-8.9) H 02/06/19 13:30 PT 12.4 Seconds (9.4-12.1) H 02/07/19 04:37 ABG pH 7.47 pH Units (7.32-7.45) H 02/06/19 14:26 ABG pCO2 31 mmHg (35-45) L 02/06/19 14:26 ABG pO2 128 mmHg (85-104) H 02/07/19 04:31 ABG O2 Saturation 99 % (95-98) H 02/07/19 04:31 VBG pO2 57 mmHg (25-50) H 02/07/19 04:54 Sodium 148 mEq/L (136-145) H 02/07/19 12:50 Chloride 119 mEq/L (98-107) H 02/07/19 12:50 Carbon Dioxide 22 mEq/L (23-29) L 02/07/19 12:50 BUN 35 mg/dL (8-23) H 02/07/19 12:50 BUN/Creatinine Ratio 41 (6-26) H 02/07/19 12:50 Glucose 178 mg/dL (70-105) H 02/07/19 12:50 POC Glucose 110 mg/dL (70-99) H 02/07/19 01:11 Serum Osmolality 340 mOsm/kg (280-300) H 02/06/19 13:30 Calculated Osmolality 318 (280-300) H 02/07/19 12:50 Calcium 8.3 mg/dL (8.6-10.3) L 02/07/19 12:50 Phosphorus 2.6 mg/dL (2.7-4.5) L 02/07/19 04:37 Troponin I 0.04 ng/mL (< 0.04) H* 02/06/19 13:30 Serum Total Protein 5.8 g/dL (6.4-8.9) L 02/07/19 04:37 Albumin 2.9 g/dL (3.5-5.7) L 02/07/19 04:37 Albumin/Globulin Ratio 1.0 (1.1-2.2) L 02/07/19 04:37 Urine Clarity Turbid (Clear) A 02/06/19 14:40 Ur Specific Guy > 1.030 (1.010-1.025) H 02/06/19 14:40 Urine Protein 100 mg/dL (Neg-Trace) H 02/06/19 14:40 Urine Glucose (UA) 500 mg/dL (Normal) H 02/06/19 14:40 Urine Blood Small (Negative) H 02/06/19 14:40 Urine Bilirubin Small (Negative) H 02/06/19 14:40 Ur Leukocyte Esterase Small (Negative) H 02/06/19 14:40 Urine Microscopic RBC 15-30 per hpf (0-3) H 02/06/19 14:40 Urine Microscopic WBC 50-100 per hpf (0-3) H 02/06/19 14:40 Ur Squamous Epith Cells Many per lpf (None-Few) H 02/06/19 14:40 Granular Casts Few per lpf (None Seen) H 02/06/19 14:40 Ur Culture Indicated? YES (NO) A 02/06/19 14:40 Consult Discharge Plan - Plan Referrals: Julio Seals Jr, MD [Primary Care Provider] - <Etta Nunez I - Last Filed: 02/07/19 17:27> Date of Encounter: 02/07/19 Assessment and Plan (1) Altered mental status Current Visit: Yes Status: Acute Pt was seen and examined, my medical decision was reviewed with the Resident Physician, I agree with the documented findings, disposition and treatment plan, as described except to the extent set forth below. This is a 73 years old male with a history of dementia and Parkinson disease admitted with unresponsiveness from the long term but he was recently admitted about 4-5 days ago as his was not able to take care of him. But according to the though he was confused and not able to recognize her for more than 2 years but is still he could talk walk and was quite active. In fact that he went to the long term and night before he got sick basically he tried to open up the hospital bed had taken few things out of the bed. But later on that night he was found unresponsive, and now he is intubated and sedated. Considering significant overall change in his mental status and rapid decline certainly need to exclude the possibly of any infectious etiology. He is already on broad-spectrum antibiotic coverage suggest doing a spinal tap. I have reviewed his EEG that also shows some epileptiform discharges lasting for about few seconds could be the potential for seizure activity I recommended starting him on anticonvulsive therapy with Keppra 500 mg IV every 12 hours. In the meantime continue to follow the patient perhaps he may have to resume his Parkinson medication later when he is more awake and stable, at the same time recommend MRI of the brain as well. Discussed in detail with the patient who was present at the bedside as well as with ICU team Agreed with the plan Etta Nunez MD Qualifiers: Altered mental status type: unspecified Qualified Code(s): R41.82 - Altered mental status, unspecified History of Present Illness HPI: Mr. Mcnair is a 73 year old male All Systems: The remainder of the systems were reviewed and are negative Physical Examination - Vital Signs Vital Signs: Initial Vital Signs Temp Pulse Resp BP Pulse Ox 100.8 F H 73 33 117/62 91 02/06/19 13:28 02/06/19 13:28 02/06/19 13:28 02/06/19 13:28 02/06/19 13:28 Results - Laboratory Findings CBC and BMP: 02/07/19 04:37 02/07/19 12:50 Abnormal lab findings: Abnormal lab results WBC 13.7 K/mcL (4.3-11.1) H 02/07/19 04:37 RBC 3.81 M/mcL (4.19-5.50) L 02/07/19 04:37 Hgb 11.6 g/dL (12.9-16.9) L 02/07/19 04:37 MCHC 30.6 g/dL (31.6-35.5) L 02/07/19 04:37 Neutrophils # 11.9 K/mcL (1.6-8.9) H 02/06/19 13:30 PT 12.4 Seconds (9.4-12.1) H 02/07/19 04:37 ABG pH 7.47 pH Units (7.32-7.45) H 02/06/19 14:26 ABG pCO2 31 mmHg (35-45) L 02/06/19 14:26 ABG pO2 128 mmHg (85-104) H 02/07/19 04:31 ABG O2 Saturation 99 % (95-98) H 02/07/19 04:31 VBG pO2 57 mmHg (25-50) H 02/07/19 04:54 Sodium 148 mEq/L (136-145) H 02/07/19 12:50 Chloride 119 mEq/L (98-107) H 02/07/19 12:50 Carbon Dioxide 22 mEq/L (23-29) L 02/07/19 12:50 BUN 35 mg/dL (8-23) H 02/07/19 12:50 BUN/Creatinine Ratio 41 (6-26) H 02/07/19 12:50 Glucose 178 mg/dL (70-105) H 02/07/19 12:50 POC Glucose 110 mg/dL (70-99) H 02/07/19 01:11 Serum Osmolality 340 mOsm/kg (280-300) H 02/06/19 13:30 Calculated Osmolality 318 (280-300) H 02/07/19 12:50 Calcium 8.3 mg/dL (8.6-10.3) L 02/07/19 12:50 Phosphorus 2.6 mg/dL (2.7-4.5) L 02/07/19 04:37 Troponin I 0.04 ng/mL (< 0.04) H* 02/06/19 13:30 Serum Total Protein 5.8 g/dL (6.4-8.9) L 02/07/19 04:37 Albumin 2.9 g/dL (3.5-5.7) L 02/07/19 04:37 Albumin/Globulin Ratio 1.0 (1.1-2.2) L 02/07/19 04:37 Urine Clarity Turbid (Clear) A 02/06/19 14:40 Ur Specific Guy > 1.030 (1.010-1.025) H 02/06/19 14:40 Urine Protein 100 mg/dL (Neg-Trace) H 02/06/19 14:40 Urine Glucose (UA) 500 mg/dL (Normal) H 02/06/19 14:40 Urine Blood Small (Negative) H 02/06/19 14:40 Urine Bilirubin Small (Negative) H 02/06/19 14:40 Ur Leukocyte Esterase Small (Negative) H 02/06/19 14:40 Urine Microscopic RBC 15-30 per hpf (0-3) H 02/06/19 14:40 Urine Microscopic WBC 50-100 per hpf (0-3) H 02/06/19 14:40 Ur Squamous Epith Cells Many per lpf (None-Few) H 02/06/19 14:40 Granular Casts Few per lpf (None Seen) H 02/06/19 14:40 Ur Culture Indicated? YES (NO) A 02/06/19 14:40
--- NOTE | 2019-02-07 15:40 | EEG/EMG/Oth Biometrics Report ---
EEG Procedure Report EEG Procedure: Routine EEG Procedure Note: This is a routine 21 channel digital EEG performed utilizing 10- 20 international electrode placement system. FINDINGS: Patient has a predominant waking background frequency that is average voltage 8 to 10 Hertz alpha activity in the posterior region, low amplitude symmetrical over the both hemispheres reactive to eyes opening and closing record continued to show theta activity intermixed with some delta off and on, during the study there is an episode of paroxysmal abnormal discharge high in amplitude lasting about 4 seconds and then slowing in down resolving spontaneously with few other sharp spikes predominantly originating from the right temporal leads could be the potential for seizures no continuous seizure activity was recorded . Photic stimulation did not produce any convulsive response. Intermittent EMG artifacts were noted. Stage II sleep was not achieved. Impression: Abnormal electroencephalogram , this EEG demonstrated a paroxysmal event lasting for about 4 seconds resolving spontaneously could be the potential for seizures, at the same time there is generalized slowing noted during this study which is a nonspecific pattern could be seen in patient with generalized metabolic toxic encephalopathy consistent with diffuse cortical dysfunction, clinical correlation is suggested.
[2019-02-07] MEDS ORDERED: *HR* Midazolam HCl 2 MG/2 ML VIAL ONE (16:37)
--- NOTE | 2019-02-07 17:31 | Procedure Note ---
Date of procedure: 02/07/19 Procedure: Lumbar puncture: A time-out was completed verifying correct patient, procedure, site, positioning, and special equipment if applicable. The patient was placed in the LEFT lateral decubitus position in a semi- position with help from the nursing staff. The area was cleansed and draped in usual sterile fashion. 1% lidocaine was used anesthetize the surrounding skin area. A 20-gauge 3.5-inch spinal needle was placed in the L3-L4 interspace for 2 attempts and in the L4-L5 interspace for 4 attempts. Clear cerebral spinal fluid was obtained. Four tubes were filled with approximately 4 mL of CSF. These were sent for the usual tests, including 1 tube to be held for further analysis if needed. Attending was present for the entire procedure Was there an laundry assistant present: Yes Student Services Vice President: Napoleon Seymour Estimated blood loss (cc): 2 (2 mL) Specimen: CSF
[2019-02-07] MEDS ORDERED: *HR* Midazolam HCl 2 MG/2 ML VIAL IVP ONE (17:59)
[2019-02-07 18:50] LABS: Glucose,CSF 99 mg/dL (40-70); Total Protein,CSF 88 mg/dL (15-45)
[2019-02-07] MEDS: ACYCLOVIR IVPB SCH (19:59)
[2019-02-07] MEDS: WATER IVPB SCH (19:59)
[2019-02-07] MEDS: D5 IVPB SCH (19:59)
[2019-02-07] MEDS: Insulin Human Regular 100 UNIT in 0.9 % Sodium Chloride 100 ML IVC SCH (20:00)
[2019-02-07 22:03] LABS: BUN/Creatinine Ratio 36 (6-26); Blood Urea Nitrogen 29 mg/dL (8-23); Calcium 8.3 mg/dL (8.6-10.3); Carbon Dioxide 21 mEq/L (23-29); Chloride 117 mEq/L (98-107); Glucose 212 mg/dL (70-105); Osmolality,Calculated 314 (280-300); Potassium 3.5 mEq/L (3.5-5.1); Sodium 146 mEq/L (136-145); eGFR For African Americans > 60 (> 60); eGFR For Non-African Americans > 60 (> 60)
[2019-02-08] MEDS: Ampicillin 2 GM in 0.9 % Sodium Chloride Mini Bag 100 ML IVPB SCH ×2 (01:05→06:16)
[2019-02-08] MEDS: cefTRIAXone 2,000 MG in Water for inj. (sterile) 20 ML IVP SCH ×2 (02:02→15:17)
[2019-02-08] MEDS: D5 IVPB SCH ×3 (03:46→18:50)
[2019-02-08] MEDS: ACYCLOVIR IVPB SCH ×3 (03:46→18:50)
[2019-02-08] MEDS: WATER IVPB SCH ×3 (03:46→18:50)
[2019-02-08] MEDS: Artificial Tears SOLN 15 ML BOTTLE BOTH EYES SCH ×5 (03:47→19:52)
[2019-02-08] MEDS: D5% in Water 1,000 ML IVC SCH (03:54)
[2019-02-08 04:11] LABS: Hematocrit 34.4 % (37.5-50.1); Hemoglobin 11.2 g/dL (12.9-16.9); Mean Corpuscular HGB Conc 32.6 g/dL (31.6-35.5); Mean Corpuscular Hemoglobin 30.9 pg (28.0-33.3); Mean Corpuscular Volume 94.8 fL (83.0-100.0); Mean Platelet Volume 12.2 fL (9.4-12.4); Platelet Count 187 K/mcL (140-400); Red Blood Count 3.63 M/mcL (4.19-5.50); Red Cell Distribution Width 12.3 % (11.5-14.5); White Blood Count 15.1 K/mcL (4.3-11.1)
[2019-02-08 04:31] LABS: BUN/Creatinine Ratio 34 (6-26); Blood Urea Nitrogen 25 mg/dL (8-23); Calcium 7.7 mg/dL (8.6-10.3); Carbon Dioxide 16 mEq/L (23-29); Chloride 117 mEq/L (98-107); Glucose 186 mg/dL (70-105); Osmolality,Calculated 303 (280-300); Potassium 4.4 mEq/L (3.5-5.1); Sodium 142 mEq/L (136-145); Vancomycin,Trough 13 mcg/mL (5-10); eGFR For African Americans > 60 (> 60); eGFR For Non-African Americans > 60 (> 60)
[2019-02-08 05:03] LABS: Acinetobacter baumannii by PCR Not Detected (Not Detect); Candida albicans by PCR Not Detected (Not Detect); Candida glabrata by PCR Not Detected (Not Detect); Candida krusei by PCR Not Detected (Not Detect); Candida parapsilosis by PCR Not Detected (Not Detect); Candida tropicalis by PCR Not Detected (Not Detect); Enterobacter cloacae Cmplx PCR Not Detected (Not Detect); Enterobacteriaceae by PCR Not Detected (Not Detect); Enterococcus by PCR Not Detected (Not Detect); Escherichia coli by PCR Not Detected (Not Detect); Klebsiella oxytoca by PCR Not Detected (Not Detect); Klebsiella pneumoniae by PCR Not Detected (Not Detect); Proteus by PCR Not Detected (Not Detect); Pseudomonas aeruginosa by PCR Not Detected (Not Detect); Serratia marcescens by PCR Not Detected (Not Detect); Staphylococcus aureus by PCR Not Detected (Not Detect); Staphylococcus by PCR DETECTED (Not Detect); Streptococcus agalactiae(B)PCR Not Detected (Not Detect); Streptococcus by PCR Not Detected (Not Detect); Streptococcus pneumoniae PCR Not Detected (Not Detect); Streptococcus pyogenes (A) PCR Not Detected (Not Detect); mecA Methicillin-Resist Gene DETECTED (Not Detect)
[2019-02-08] MEDS: *HR* Enoxaparin 40 MG/0.4 ML SYRINGE SQ SCH (05:15)
[2019-02-08] MEDS: Famotidine 20 MG/2 ML VIAL IVP SCH ×2 (05:15→18:51)
[2019-02-08 05:31] LABS: ABG Base Excess -1 mEq/L (-2 to 3); ABG HCO3 23 mEq/L (21-27); ABG Oxygen Saturation 99 % (95-98); ABG PCO2 33 mmHg (35-45); ABG PH 7.45 pH Units (7.32-7.45); ABG PO2 129 mmHg (85-104); ABG TCO2 24 mEq/L (20-26); Blood Gas Modality ASSIST CONTROL; Blood Gas PEEP 5 cm H2O; Blood Gas VT 480 cc
[2019-02-08] MEDS ORDERED: Aminoglycoside Consult 1 EACH MC ONE (06:55)
[2019-02-08] MEDS: Chlorhexidine Rinse 15 ML MOUTHWASH MM SCH ×2 (07:55→22:04)
[2019-02-08 09:51] LABS: Red Blood Cell,CSF < 0.002 M/mcL
--- NOTE | 2019-02-08 09:51 | Neurology Progress Note ---
<Giuseppe Luna M - Last Filed: 02/08/19 11:29> Date of Encounter: 02/08/19 Time of Encounter: 09:00 Assessment and Plan (1) Altered mental status Current Visit: Yes Status: Acute EEG yesterday showd some epileptiform discharges recommend starting Keppra 500mg IV Q12H. Lumbar puncture showed some abnormality with elevated Protein and G lucose. Recommend continuing IV Acyclovir. Recommend MRI to evaluate for structural brain abnormality contributing to current state once patient is stable enough to sit through MRI. Qualifiers: Altered mental status type: unspecified Qualified Code(s): R41.82 - Altered mental status, unspecified Subjective Principal diagnosis: Encephalopathy Interval history: Mr. Mcnair is a 73 year old male with past medical history significant for Parkinsons Disease, Type 2 Diabetes, Hypertension and bradycardia with a pacer. He was seen in ICU where he remains intubated without sedation. He had no purposeful movement and was nonresponsive to painful stimuli. He was unable to follow simple commands. Nursing staff reports he does occasional withdrawal from painful stimuli such as when checking his glucose or when suctioning. His was not present at bedside today so only staff was available to provide collateral information. Objective - Constitutional Vitals: Temp Pulse Resp BP Pulse Ox 97.7 F 65 20 124/69 100 02/08/19 08:14 02/08/19 09:00 02/08/19 09:00 02/08/19 09:00 02/08/19 09:00 General appearance: Present: severe distress (on vent), thin - Head Head exam: Present: normocephalic - Expanded Head Exam Head exam expanded: Absent: Stern's sign, contusion, raccoon eyes - Eye Eye exam: Present: sclera anicteric. Absent: scleral icterus Pupils: Present: normal accommodation - Neurological Exam Sensorimotor examination: Present: other (unable to assess due to patients intubation and nonresponsive state) Motor Examination: Present: other (unable to assess due to patients intubation and nonresponsive state) Sensation intact: Present: other (unable to assess due to patients intubation and nonresponsive state) Posture: Present: rigid Reflex and gait examination: other (unable to assess due to patients intubation and nonresponsive state) Mental Status Examination: Present: no spontaneous eye opening to voice or tactile stimulation. Absent: awake, alert, oriented to person, oriented to place, oriented to time, follows commands appropriately, agitated, opens eyes to voice, opens eyes to noxious stimulation, makes eye contact, follows simple commands, localizes noxious stimulation, grimmacing, answers questions by nodding yes or no, hook and gasp reflex Cranial nerve examination: Present: no facial asymmetry is present Results - Laboratory Findings CBC and BMP: 02/08/19 04:00 02/08/19 04:00 Abnormal lab findings: Abnormal lab results WBC 15.1 K/mcL (4.3-11.1) H 02/08/19 04:00 RBC 3.63 M/mcL (4.19-5.50) L 02/08/19 04:00 Hgb 11.2 g/dL (12.9-16.9) L 02/08/19 04:00 Hct 34.4 % (37.5-50.1) L 02/08/19 04:00 MCHC 30.6 g/dL (31.6-35.5) L 02/07/19 04:37 Neutrophils # 11.9 K/mcL (1.6-8.9) H 02/06/19 13:30 PT 12.4 Seconds (9.4-12.1) H 02/07/19 04:37 ABG pH 7.47 pH Units (7.32-7.45) H 02/06/19 14:26 ABG pCO2 33 mmHg (35-45) L 02/08/19 05:26 ABG pO2 129 mmHg (85-104) H 02/08/19 05:26 ABG O2 Saturation 99 % (95-98) H 02/08/19 05:26 VBG pO2 57 mmHg (25-50) H 02/07/19 04:54 Sodium 146 mEq/L (136-145) H 02/07/19 21:22 Chloride 117 mEq/L (98-107) H 02/08/19 04:00 Carbon Dioxide 16 mEq/L (23-29) L 02/08/19 04:00 BUN 25 mg/dL (8-23) H 02/08/19 04:00 BUN/Creatinine Ratio 34 (6-26) H 02/08/19 04:00 Glucose 186 mg/dL (70-105) H 02/08/19 04:00 POC Glucose 165 mg/dL (70-99) H 02/08/19 00:01 Serum Osmolality 340 mOsm/kg (280-300) H 02/06/19 13:30 Calculated Osmolality 303 (280-300) H 02/08/19 04:00 Calcium 7.7 mg/dL (8.6-10.3) L 02/08/19 04:00 Phosphorus 2.6 mg/dL (2.7-4.5) L 02/07/19 04:37 Troponin I 0.04 ng/mL (< 0.04) H* 02/06/19 13:30 Serum Total Protein 5.8 g/dL (6.4-8.9) L 02/07/19 04:37 Albumin 2.9 g/dL (3.5-5.7) L 02/07/19 04:37 Albumin/Globulin Ratio 1.0 (1.1-2.2) L 02/07/19 04:37 Urine Clarity Turbid (Clear) A 02/06/19 14:40 Ur Specific Reading > 1.030 (1.010-1.025) H 02/06/19 14:40 Urine Protein 100 mg/dL (Neg-Trace) H 02/06/19 14:40 Urine Glucose (UA) 500 mg/dL (Normal) H 02/06/19 14:40 Urine Blood Small (Negative) H 02/06/19 14:40 Urine Bilirubin Small (Negative) H 02/06/19 14:40 Ur Leukocyte Esterase Small (Negative) H 02/06/19 14:40 Urine Microscopic RBC 15-30 per hpf (0-3) H 02/06/19 14:40 Urine Microscopic WBC 50-100 per hpf (0-3) H 02/06/19 14:40 Ur Squamous Epith Cells Many per lpf (None-Few) H 02/06/19 14:40 Granular Casts Few per lpf (None Seen) H 02/06/19 14:40 Ur Culture Indicated? YES (NO) A 02/06/19 14:40 CSF Glucose 99 mg/dL (40-70) H 02/07/19 17:20 CSF Total Protein 88 mg/dL (15-45) H 02/07/19 17:20 Vancomycin Trough 13 mcg/mL (5-10) H 02/08/19 04:00 Staphylococcus sp PCR DETECTED (Not Detect) A 02/06/19 14:00 mecA-Methicil Res Gene DETECTED (Not Detect) A 02/06/19 14:00 Consult Discharge Plan - Plan Referrals: Julio Seals Jr, MD [Primary Care Provider] - <Etta Nunez I - Last Filed: 02/08/19 13:20> Date of Encounter: 02/08/19 Assessment and Plan (1) Altered mental status Current Visit: Yes Status: Acute Pt was seen and examined, my medical decision was reviewed with the Resident Physician, I agree with the documented findings, disposition and treatment plan, as described except to the extent set forth below. Patient remain intubated and on sedation no significant change in neurological status EEG revealed some abnormal activity for which she is on Keppra now he did have an a spinal tap yesterday that shows elevated glucose and proteins but somehow cell count with differential is still pending. His been on antiviral agent along with antibiotics. CSF was negative perhaps we could discontinue broad-spectrum coverage depending on the results we will make further recommendations and in the meantime may continue on both. We will follow the patient with you other treatment is as per primary team Etta Nunez MD Qualifiers: Altered mental status type: unspecified Qualified Code(s): R41.82 - Altered mental status, unspecified Objective - Constitutional Vitals: Temp Pulse Resp BP Pulse Ox 98.6 F 70 24 128/77 97 02/08/19 10:50 02/08/19 11:00 02/08/19 11:00 02/08/19 11:00 02/08/19 11:00 Results - Laboratory Findings CBC and BMP: 02/08/19 04:00 02/08/19 04:00 Abnormal lab findings: Abnormal lab results WBC 15.1 K/mcL (4.3-11.1) H 02/08/19 04:00 RBC 3.63 M/mcL (4.19-5.50) L 02/08/19 04:00 Hgb 11.2 g/dL (12.9-16.9) L 02/08/19 04:00 Hct 34.4 % (37.5-50.1) L 02/08/19 04:00 MCHC 30.6 g/dL (31.6-35.5) L 02/07/19 04:37 Neutrophils # 11.9 K/mcL (1.6-8.9) H 02/06/19 13:30 PT 12.4 Seconds (9.4-12.1) H 02/07/19 04:37 ABG pH 7.47 pH Units (7.32-7.45) H 02/06/19 14:26 ABG pCO2 33 mmHg (35-45) L 02/08/19 05:26 ABG pO2 129 mmHg (85-104) H 02/08/19 05:26 ABG O2 Saturation 99 % (95-98) H 02/08/19 05:26 VBG pO2 57 mmHg (25-50) H 02/07/19 04:54 Sodium 146 mEq/L (136-145) H 02/07/19 21:22 Chloride 117 mEq/L (98-107) H 02/08/19 04:00 Carbon Dioxide 16 mEq/L (23-29) L 02/08/19 04:00 BUN 25 mg/dL (8-23) H 02/08/19 04:00 BUN/Creatinine Ratio 34 (6-26) H 02/08/19 04:00 Glucose 186 mg/dL (70-105) H 02/08/19 04:00 POC Glucose 165 mg/dL (70-99) H 02/08/19 00:01 Serum Osmolality 340 mOsm/kg (280-300) H 02/06/19 13:30 Calculated Osmolality 303 (280-300) H 02/08/19 04:00 Calcium 7.7 mg/dL (8.6-10.3) L 02/08/19 04:00 Phosphorus 2.6 mg/dL (2.7-4.5) L 02/07/19 04:37 Troponin I 0.04 ng/mL (< 0.04) H* 02/06/19 13:30 Serum Total Protein 5.8 g/dL (6.4-8.9) L 02/07/19 04:37 Albumin 2.9 g/dL (3.5-5.7) L 02/07/19 04:37 Albumin/Globulin Ratio 1.0 (1.1-2.2) L 02/07/19 04:37 Urine Clarity Turbid (Clear) A 02/06/19 14:40 Ur Specific Reading > 1.030 (1.010-1.025) H 02/06/19 14:40 Urine Protein 100 mg/dL (Neg-Trace) H 02/06/19 14:40 Urine Glucose (UA) 500 mg/dL (Normal) H 02/06/19 14:40 Urine Blood Small (Negative) H 02/06/19 14:40 Urine Bilirubin Small (Negative) H 02/06/19 14:40 Ur Leukocyte Esterase Small (Negative) H 02/06/19 14:40 Urine Microscopic RBC 15-30 per hpf (0-3) H 02/06/19 14:40 Urine Microscopic WBC 50-100 per hpf (0-3) H 02/06/19 14:40 Ur Squamous Epith Cells Many per lpf (None-Few) H 02/06/19 14:40 Granular Casts Few per lpf (None Seen) H 02/06/19 14:40 Ur Culture Indicated? YES (NO) A 02/06/19 14:40 CSF Glucose 99 mg/dL (40-70) H 02/07/19 17:20 CSF Total Protein 88 mg/dL (15-45) H 02/07/19 17:20 Vancomycin Trough 13 mcg/mL (5-10) H 02/08/19 04:00 Staphylococcus sp PCR DETECTED (Not Detect) A 02/06/19 14:00 mecA-Methicil Res Gene DETECTED (Not Detect) A 02/06/19 14:00
[2019-02-08] MEDS: *HR* FentaNYL (PF) 100 MCG/2 ML VIAL IVP PRN ×3 (09:54→15:46)
[2019-02-08 09:59] LABS: Appearance,CSF Clear (Clear)
--- NOTE | 2019-02-08 10:52 | Pulmonology Progress Note ---
Date of Encounter: 02/08/19 Time of Encounter: 08:00 Assessment and Plan (1) Acute respiratory failure with hypoxia Current Visit: Yes Status: Acute most contributed by acute toxic/metabolic encephalopathy with possible seizure- like activity to continue low tidal volume strategy no convincing evidence of pneumonia causing this V/Q mismatch will try to liberate FiO2 as tolerated. (2) Acute metabolic encephalopathy Current Visit: Yes Status: Acute Patient has significant metabolic encephalopathy will continue acyclovir for CSF glucose and protein is higher CSF herpes viral was sent . CSF Gram stain was negative to culture growth at 24 hours will discontinue ampicillin we will keep Gram-negative gram-positive coverage for possible pneumonia will reduce the meningitis dose . patient has some seizure-like activity. will start On Keppra. (3) Dehydration Current Visit: Yes Status: Acute volume repleted adequately. 5% dextrose (4) Sepsis Current Visit: Yes Status: Acute patient is covered with broad-spectrum antibiotics including for UTI and possible aspiration pneumonia Qualifiers: Sepsis type: sepsis due to unspecified organism Sepsis acute organ dysfunction status: unspecified Qualified Code(s): A41.9 - Sepsis, unspecified organism (5) DVT prophylaxis Current Visit: Yes Status: Acute to continue the current regimen. Subjective Principal diagnosis: Encephalopathy Interval history: patient did not have any acute events overnight patient still Has encephalopathy. Objective PUL Vital signs: Last Vital Signs Temp 97.7 F 02/08/19 08:14 Pulse 60 02/08/19 10:00 Resp 20 02/08/19 10:00 BP 120/73 02/08/19 10:00 Pulse Ox 100 02/08/19 10:00 General appearance: no acute distress, lethargic Eyes: nonicteric Effort: mildly labored Auscultation: bilateral: rales ( minimal scattered) Cardiovascular: regular rate and rhythm Gastrointestinal: normoactive bowel sounds Extremities: no cyanosis, no edema other ( patient does not follow commands agitated still encephalopathy) Ventilator Settings Ventilator Settings: Ventilator Settings, Last 8 Hours Ventilator Tidal Volume 480 Setting Ventilator Tidal Volume 480 Setting Ventilator Tidal Volume 480 Setting Ventilator Tidal Volume 480 Setting Ventilator Tidal Volume 480 Setting Ventilator Tidal Volume 480 Setting Ventilator Respiratory Rate 16 Setting Ventilator Respiratory Rate 16 Setting Ventilator Respiratory Rate 16 Setting Ventilator Respiratory Rate 16 Setting Ventilator Respiratory Rate 16 Setting Ventilator Respiratory Rate 16 Setting Actual Respiratory Rate 20 Actual Respiratory Rate 26 Actual Respiratory Rate 20 Actual Respiratory Rate 21 Actual Respiratory Rate 19 Actual Respiratory Rate 18 Actual Respiratory Rate 18 Actual Respiratory Rate 17 Actual Respiratory Rate 19 Actual Respiratory Rate 18 Actual Respiratory Rate 18 Actual Respiratory Rate 18 Actual Respiratory Rate 18 Positive End Expiratory 5 Pressure Positive End Expiratory 5 Pressure Positive End Expiratory 5 Pressure Positive End Expiratory 5 Pressure Positive End Expiratory 5 Pressure Positive End Expiratory 5 Pressure Positive End Expiratory 5 Pressure Positive End Expiratory 5 Pressure Positive End Expiratory 5 Pressure Positive End Expiratory 5 Pressure Positive End Expiratory 5 Pressure Positive End Expiratory 5 Pressure Positive End Expiratory 5 Pressure Positive End Expiratory 5 Pressure Peak Inspiratory Airway 10 Pressure Peak Inspiratory Airway 11 Pressure Peak Inspiratory Airway 10 Pressure Peak Inspiratory Airway 11 Pressure Peak Inspiratory Airway 11 Pressure Peak Inspiratory Airway 10 Pressure Peak Inspiratory Airway 10 Pressure Peak Inspiratory Airway 10 Pressure Peak Inspiratory Airway 11 Pressure Peak Inspiratory Airway 10 Pressure Peak Inspiratory Airway 15 Pressure Peak Inspiratory Airway 15 Pressure Peak Inspiratory Airway 10 Pressure Results - Laboratory Findings CBC and BMP: 02/08/19 04:00 02/08/19 04:00 ABG ABG pH 7.45 pH Units (7.32-7.45) 02/08/19 05:26 ABG pCO2 33 mmHg (35-45) L 02/08/19 05:26 ABG pO2 129 mmHg (85-104) H 02/08/19 05:26 ABG O2 Saturation 99 % (95-98) H 02/08/19 05:26 PT/INR, D-dimer PT 12.4 Seconds (9.4-12.1) H 02/07/19 04:37 Abnormal lab findings: Abnormal lab results WBC 15.1 K/mcL (4.3-11.1) H 02/08/19 04:00 RBC 3.63 M/mcL (4.19-5.50) L 02/08/19 04:00 Hgb 11.2 g/dL (12.9-16.9) L 02/08/19 04:00 Hct 34.4 % (37.5-50.1) L 02/08/19 04:00 MCHC 30.6 g/dL (31.6-35.5) L 02/07/19 04:37 Neutrophils # 11.9 K/mcL (1.6-8.9) H 02/06/19 13:30 PT 12.4 Seconds (9.4-12.1) H 02/07/19 04:37 ABG pH 7.47 pH Units (7.32-7.45) H 02/06/19 14:26 ABG pCO2 33 mmHg (35-45) L 02/08/19 05:26 ABG pO2 129 mmHg (85-104) H 02/08/19 05:26 ABG O2 Saturation 99 % (95-98) H 02/08/19 05:26 VBG pO2 57 mmHg (25-50) H 02/07/19 04:54 Sodium 146 mEq/L (136-145) H 02/07/19 21:22 Chloride 117 mEq/L (98-107) H 02/08/19 04:00 Carbon Dioxide 16 mEq/L (23-29) L 02/08/19 04:00 BUN 25 mg/dL (8-23) H 02/08/19 04:00 BUN/Creatinine Ratio 34 (6-26) H 02/08/19 04:00 Glucose 186 mg/dL (70-105) H 02/08/19 04:00 POC Glucose 165 mg/dL (70-99) H 02/08/19 00:01 Serum Osmolality 340 mOsm/kg (280-300) H 02/06/19 13:30 Calculated Osmolality 303 (280-300) H 02/08/19 04:00 Calcium 7.7 mg/dL (8.6-10.3) L 02/08/19 04:00 Phosphorus 2.6 mg/dL (2.7-4.5) L 02/07/19 04:37 Troponin I 0.04 ng/mL (< 0.04) H* 02/06/19 13:30 Serum Total Protein 5.8 g/dL (6.4-8.9) L 02/07/19 04:37 Albumin 2.9 g/dL (3.5-5.7) L 02/07/19 04:37 Albumin/Globulin Ratio 1.0 (1.1-2.2) L 02/07/19 04:37 Urine Clarity Turbid (Clear) A 02/06/19 14:40 Ur Specific [place] > 1.030 (1.010-1.025) H 02/06/19 14:40 Urine Protein 100 mg/dL (Neg-Trace) H 02/06/19 14:40 Urine Glucose (UA) 500 mg/dL (Normal) H 02/06/19 14:40 Urine Blood Small (Negative) H 02/06/19 14:40 Urine Bilirubin Small (Negative) H 02/06/19 14:40 Ur Leukocyte Esterase Small (Negative) H 02/06/19 14:40 Urine Microscopic RBC 15-30 per hpf (0-3) H 02/06/19 14:40 Urine Microscopic WBC 50-100 per hpf (0-3) H 02/06/19 14:40 Ur Squamous Epith Cells Many per lpf (None-Few) H 02/06/19 14:40 Granular Casts Few per lpf (None Seen) H 02/06/19 14:40 Ur Culture Indicated? YES (NO) A 02/06/19 14:40 CSF Glucose 99 mg/dL (40-70) H 02/07/19 17:20 CSF Total Protein 88 mg/dL (15-45) H 02/07/19 17:20 Vancomycin Trough 13 mcg/mL (5-10) H 02/08/19 04:00 Staphylococcus sp PCR DETECTED (Not Detect) A 02/06/19 14:00 mecA-Methicil Res Gene DETECTED (Not Detect) A 02/06/19 14:00 - Microbiology Findings Microbiology Findings: Microbiology, Last 48 Hours 02/06/19 14:40 Urine Culture - Final Urine,Clean Catch No growth. 02/06/19 14:00 Blood Culture - Preliminary Peripheral Venipuncture Gram Positive Cocci 02/07/19 17:20 CSF Culture - Preliminary Cerebral Spinal Fluid 02/06/19 13:30 Blood Culture - Preliminary Peripheral Venipuncture Culture is incubating and being continuously monitored for growth. Final report to follow. - Clinical Findings Intake & Output: Intake & Output 02/07/19 02/08/19 02/08/19 23:59 07:59 15:59 Intake Total 2406.4 / 4417.4 2147.7 / 2160.2 12.5 / 2160.2 Output Total 300 / 1000 300 / 425 125 / 425 Balance 2106.4 / 3417.4 1847.7 / 1735.2 -112.5 / 1735.2 Weight 65.9 kg Consult Discharge Plan - Plan Referrals: Julio Seals Jr, MD [Primary Care Provider] - Critical Care Time Critical Care Time: Yes Total Critical Care Time: 40 Attestation: I spent 40 minutes of Critical Care time with this patient. It involved decision making of high complexity to assess, manipulate, and support vital organ system failure and/or to prevent further life threatening deterioration of the patient's condition. The time involved in the performance of separately reportable procedures was not counted toward critical care time.
[2019-02-08] MEDS: Insulin LISPRO 300 UNITS/3 ML VIAL SQ SCH ×2 (11:22→18:51)
[2019-02-08] MEDS: Carbidopa/Levodopa ER 50/200 TABLET PO SCH ×2 (18:34→19:52)
[2019-02-08] MEDS ORDERED: levETIRAcetam 1,000 MG in 0.9 % Sodium Chloride 100 ML IVPB ONE (19:00)
[2019-02-09] MEDS: Insulin LISPRO 300 UNITS/3 ML VIAL SQ SCH ×8 (00:25→23:35)
[2019-02-09] MEDS: Artificial Tears SOLN 15 ML BOTTLE BOTH EYES SCH ×7 (00:25→23:34)
[2019-02-09] MEDS: cefTRIAXone 2,000 MG in Water for inj. (sterile) 20 ML IVP SCH (00:29)
[2019-02-09] MEDS: WATER IVPB SCH (03:42)
[2019-02-09] MEDS: ACYCLOVIR IVPB SCH (03:42)
[2019-02-09] MEDS: D5 IVPB SCH (03:42)
[2019-02-09 04:18] LABS: Basophils % 0.1 %; Eosinophils # 0.2 K/mcL (0.0-0.6); Eosinophils % 1.4 %; Hematocrit 30.4 % (37.5-50.1); Immature Granulocytes % 0.4 % (0-4); Lymphocytes # 1.1 K/mcL (0.6-4.6); Lymphocytes % 9.7 %; Mean Corpuscular HGB Conc 32.9 g/dL (31.6-35.5); Mean Corpuscular Hemoglobin 30.7 pg (28.0-33.3); Mean Corpuscular Volume 93.3 fL (83.0-100.0); Mean Platelet Volume 11.7 fL (9.4-12.4); Monocytes # 0.9 K/mcL (0.0-1.3); Monocytes % 8.1 %; Platelet Count 182 K/mcL (140-400); Red Blood Count 3.26 M/mcL (4.19-5.50); Segmented Neutrophils % 80.3 %; White Blood Count 11.2 K/mcL (4.3-11.1)
[2019-02-09 04:45] LABS: ABG Base Excess 0 mEq/L (-2 to 3); ABG HCO3 24 mEq/L (21-27); ABG Oxygen Saturation 96 % (95-98); ABG PCO2 34 mmHg (35-45); ABG PH 7.46 pH Units (7.32-7.45); ABG PO2 75 mmHg (85-104); ABG TCO2 25 mEq/L (20-26); Blood Gas Modality VC; Blood Gas PEEP 5 cm H2O; Blood Gas VT 480 cc
[2019-02-09 04:47] LABS: BUN/Creatinine Ratio 24 (6-26); Blood Urea Nitrogen 18 mg/dL (8-23); Calcium 7.7 mg/dL (8.6-10.3); Carbon Dioxide 24 mEq/L (23-29); Chloride 108 mEq/L (98-107); Glucose 298 mg/dL (70-105); Osmolality,Calculated 303 (280-300); Potassium 3.2 mEq/L (3.5-5.1); Sodium 140 mEq/L (136-145); eGFR For African Americans > 60 (> 60); eGFR For Non-African Americans > 60 (> 60)
[2019-02-09] MEDS: Famotidine 20 MG/2 ML VIAL IVP SCH ×2 (05:03→17:35)
[2019-02-09] MEDS: *HR* Enoxaparin 40 MG/0.4 ML SYRINGE SQ SCH (05:03)
[2019-02-09] MEDS: Chlorhexidine Rinse 15 ML MOUTHWASH MM SCH ×2 (07:54→19:36)
[2019-02-09] MEDS: Carbidopa/Levodopa ER 50/200 TABLET PO SCH (07:55)
--- NOTE | 2019-02-09 08:50 | Pulmonology Progress Note ---
<Shi Nicole - Last Filed: 02/09/19 16:32> Date of Encounter: 02/09/19 Time of Encounter: 08:43 Assessment and Plan (1) Acute respiratory failure with hypoxia Current Visit: Yes Status: Acute This is most likely due to toxic or metabolic encephalopathy. Seizure-like activity has also occurred. -Plan to continue strategy of low tidal volume -So far, there is no significant evidence of a PNA causing V/Q mismatch -Plan to liberate from FiO2 as tolerated (2) Acute metabolic encephalopathy Current Visit: Yes Status: Acute Patient has significant metabolic encephalopathy. Glucose and protein levels are elevated in CSF; CSF herpes level test has been sent. -Acyclovir discontinued at recommendation of Neurology -CSF gram stain showed no growth at 24 hours so ampicillin was discontinued -Patient is currently on Keppra for seizure-like activity -Neurology has started Sinemet for stiffness, though it is not expected this will improve mental status (3) Dehydration Current Visit: Yes Status: Acute Volume has been repleted adequately and patient is on 5% dextrose. (4) Sepsis Current Visit: Yes Status: Acute Patient currently does not meet SIRS diagnostic criteria with normal temperature, HR of 62, RR of 18, WBC of 11,200 and less than 10% band forms. -Patient is currently on Rocephin,vancomycin, Zovirax for coverage of possible meningitis -One blood culture grew S epidermidis; other blood culture is still incubating -Urine culture showed no growth -CSF is being tested for Herpes -Varicella-Zoster lab is pending. (5) DVT prophylaxis Current Visit: Yes Status: Acute Patient is currently on enoxaparin. -Continue current regimen Subjective Principal diagnosis: Encephalopathy Interval history: Patient continues to be encephalopathic. Earlier today, extravasation of IV fluid was noted at site of peripheral IV. At later check, there was no erythema or lump at IV site. Circulation in area was within normal limits. Objective PUL Vital signs: Last Vital Signs Temp 99.0 F 02/09/19 07:45 Pulse 60 02/09/19 08:00 Resp 23 02/09/19 08:00 BP 120/57 02/09/19 08:00 Pulse Ox 100 02/09/19 08:00 RASS: -4 GENERAL: patient does not open eyes to voice or physical stimuli, in no acute distress SKIN: warm, wet over right forearm, no skin breakdown EYES: nonicteric ENT: moist mucosa, ETT present CV: RRR, no murmurs, clicks, or gallops RESPIRATORY: no wheezes, rubs present. Intermittent rhonchi over LLL field GI: normal bowel sounds x4, soft, EXTREMITIES: dorsalis pedis pulses 2/4 bilaterally, no cyanosis or edema : small quantity urine in [place] bag Ventilator Settings Ventilator Settings: Ventilator Settings, Last 8 Hours Ventilator Tidal Volume 480 Setting Ventilator Tidal Volume 480 Setting Ventilator Tidal Volume 480 Setting Ventilator Tidal Volume 480 Setting Ventilator Tidal Volume 480 Setting Ventilator Tidal Volume 480 Setting Ventilator Tidal Volume 480 Setting Ventilator Tidal Volume 480 Setting Ventilator Respiratory Rate 16 Setting Ventilator Respiratory Rate 16 Setting Ventilator Respiratory Rate 16 Setting Ventilator Respiratory Rate 16 Setting Ventilator Respiratory Rate 16 Setting Ventilator Respiratory Rate 16 Setting Ventilator Respiratory Rate 16 Setting Ventilator Respiratory Rate 16 Setting Actual Respiratory Rate 23 Actual Respiratory Rate 27 Actual Respiratory Rate 20 Actual Respiratory Rate 17 Actual Respiratory Rate 17 Actual Respiratory Rate 16 Actual Respiratory Rate 20 Actual Respiratory Rate 17 Actual Respiratory Rate 20 Actual Respiratory Rate 18 Actual Respiratory Rate 18 Actual Respiratory Rate 18 Positive End Expiratory 5 Pressure Positive End Expiratory 5 Pressure Positive End Expiratory 5 Pressure Positive End Expiratory 5 Pressure Positive End Expiratory 5 Pressure Positive End Expiratory 5 Pressure Positive End Expiratory 5 Pressure Positive End Expiratory 5 Pressure Positive End Expiratory 5 Pressure Positive End Expiratory 5 Pressure Positive End Expiratory 5 Pressure Positive End Expiratory 5 Pressure Positive End Expiratory 5 Pressure Peak Inspiratory Airway 11 Pressure Peak Inspiratory Airway 10 Pressure Peak Inspiratory Airway 10 Pressure Peak Inspiratory Airway 17 Pressure Peak Inspiratory Airway 22 Pressure Peak Inspiratory Airway 22 Pressure Peak Inspiratory Airway 22 Pressure Peak Inspiratory Airway 24 Pressure Peak Inspiratory Airway 17 Pressure Peak Inspiratory Airway 14 Pressure Results - Laboratory Findings CBC and BMP: 02/09/19 03:48 02/09/19 03:48 ABG ABG pH 7.46 pH Units (7.32-7.45) H 02/09/19 04:42 ABG pCO2 34 mmHg (35-45) L 02/09/19 04:42 ABG pO2 75 mmHg (85-104) L 02/09/19 04:42 ABG O2 Saturation 96 % (95-98) 02/09/19 04:42 PT/INR, D-dimer PT 12.4 Seconds (9.4-12.1) H 02/07/19 04:37 Abnormal lab findings: Abnormal lab results WBC 11.2 K/mcL (4.3-11.1) H 02/09/19 03:48 RBC 3.26 M/mcL (4.19-5.50) L 02/09/19 03:48 Hgb 10.0 g/dL (12.9-16.9) L 02/09/19 03:48 Hct 30.4 % (37.5-50.1) L 02/09/19 03:48 MCHC 30.6 g/dL (31.6-35.5) L 02/07/19 04:37 Neutrophils # 9.0 K/mcL (1.6-8.9) H 02/09/19 03:48 PT 12.4 Seconds (9.4-12.1) H 02/07/19 04:37 ABG pH 7.46 pH Units (7.32-7.45) H 02/09/19 04:42 ABG pCO2 34 mmHg (35-45) L 02/09/19 04:42 ABG pO2 75 mmHg (85-104) L 02/09/19 04:42 ABG O2 Saturation 99 % (95-98) H 02/08/19 05:26 VBG pO2 57 mmHg (25-50) H 02/07/19 04:54 Sodium 146 mEq/L (136-145) H 02/07/19 21:22 Potassium 3.2 mEq/L (3.5-5.1) L D 02/09/19 03:48 Chloride 108 mEq/L (98-107) H 02/09/19 03:48 Carbon Dioxide 16 mEq/L (23-29) L 02/08/19 04:00 BUN 25 mg/dL (8-23) H 02/08/19 04:00 BUN/Creatinine Ratio 34 (6-26) H 02/08/19 04:00 Glucose 298 mg/dL (70-105) H 02/09/19 03:48 POC Glucose 250 mg/dL (70-99) H 02/08/19 23:50 Serum Osmolality 340 mOsm/kg (280-300) H 02/06/19 13:30 Calculated Osmolality 303 (280-300) H 02/09/19 03:48 Calcium 7.7 mg/dL (8.6-10.3) L 02/09/19 03:48 Phosphorus 2.6 mg/dL (2.7-4.5) L 02/07/19 04:37 Troponin I 0.04 ng/mL (< 0.04) H* 02/06/19 13:30 Serum Total Protein 5.8 g/dL (6.4-8.9) L 02/07/19 04:37 Albumin 2.9 g/dL (3.5-5.7) L 02/07/19 04:37 Albumin/Globulin Ratio 1.0 (1.1-2.2) L 02/07/19 04:37 Urine Clarity Turbid (Clear) A 02/06/19 14:40 Ur Specific [place] > 1.030 (1.010-1.025) H 02/06/19 14:40 Urine Protein 100 mg/dL (Neg-Trace) H 02/06/19 14:40 Urine Glucose (UA) 500 mg/dL (Normal) H 02/06/19 14:40 Urine Blood Small (Negative) H 02/06/19 14:40 Urine Bilirubin Small (Negative) H 02/06/19 14:40 Ur Leukocyte Esterase Small (Negative) H 02/06/19 14:40 Urine Microscopic RBC 15-30 per hpf (0-3) H 02/06/19 14:40 Urine Microscopic WBC 50-100 per hpf (0-3) H 02/06/19 14:40 Ur Squamous Epith Cells Many per lpf (None-Few) H 02/06/19 14:40 Granular Casts Few per lpf (None Seen) H 02/06/19 14:40 Ur Culture Indicated? YES (NO) A 02/06/19 14:40 CSF Glucose 99 mg/dL (40-70) H 02/07/19 17:20 CSF Total Protein 88 mg/dL (15-45) H 02/07/19 17:20 Vancomycin Trough 13 mcg/mL (5-10) H 02/08/19 04:00 Staphylococcus sp PCR DETECTED (Not Detect) A 02/06/19 14:00 mecA-Methicil Res Gene DETECTED (Not Detect) A 02/06/19 14:00 - Microbiology Findings Microbiology Findings: Microbiology, Last 48 Hours 02/07/19 17:20 CSF Culture - Preliminary Cerebral Spinal Fluid 02/06/19 14:40 Urine Culture - Final Urine,Clean Catch No growth. 02/06/19 14:00 Blood Culture - Preliminary Peripheral Venipuncture Gram Positive Cocci - Clinical Findings Intake & Output: Intake & Output 02/08/19 02/09/19 02/09/19 23:59 07:59 15:59 Intake Total 839.8 / 4022.8 824.8 / 1042.8 218 / 1042.8 Output Total 200 / 825 350 / 350 Balance 639.8 / 3197.8 474.8 / 692.8 218 / 692.8 Weight 68.6 kg Consult Discharge Plan - Plan Referrals: Julio Seals Jr, MD [Primary Care Provider] - <Ra Sena - Last Filed: 02/09/19 20:34> Date of Encounter: 02/09/19 Assessment and Plan (1) Acute respiratory failure with hypoxia Current Visit: Yes Status: Acute (2) Acute metabolic encephalopathy Current Visit: Yes Status: Acute (3) Dehydration Current Visit: Yes Status: Acute (4) Sepsis Current Visit: Yes Status: Acute Qualifiers: Sepsis type: sepsis due to unspecified organism Sepsis acute organ dysfunction status: unspecified Qualified Code(s): A41.9 - Sepsis, unspecified organism (5) DVT prophylaxis Current Visit: Yes Status: Acute Objective PUL Vital signs: Last Vital Signs Temp 99.9 F H 02/09/19 20:00 Pulse 64 02/09/19 20:00 Resp 16 02/09/19 20:00 BP 128/67 02/09/19 20:00 Pulse Ox 94 02/09/19 20:00 Ventilator Settings Ventilator Settings: Ventilator Settings, Last 8 Hours Ventilator Tidal Volume 16 Setting Ventilator Tidal Volume 480 Setting Ventilator Respiratory Rate 480 Setting Ventilator Respiratory Rate 16 Setting Actual Respiratory Rate 523 Actual Respiratory Rate 16 Actual Respiratory Rate 38 Actual Respiratory Rate 18 Actual Respiratory Rate 18 Actual Respiratory Rate 20 Actual Respiratory Rate 20 Actual Respiratory Rate 22 Actual Respiratory Rate 18 Actual Respiratory Rate 24 Actual Respiratory Rate 24 Actual Respiratory Rate 17 Positive End Expiratory 5 Pressure Positive End Expiratory 5 Pressure Positive End Expiratory 5 Pressure Positive End Expiratory 5 Pressure Positive End Expiratory 5 Pressure Positive End Expiratory 5 Pressure Positive End Expiratory 5 Pressure Positive End Expiratory 5 Pressure Positive End Expiratory 5 Pressure Positive End Expiratory 5 Pressure Positive End Expiratory 5 Pressure Positive End Expiratory 5 Pressure Peak Inspiratory Airway 24 Pressure Peak Inspiratory Airway 21 Pressure Peak Inspiratory Airway 14 Pressure Peak Inspiratory Airway 14 Pressure Peak Inspiratory Airway 11 Pressure Peak Inspiratory Airway 10 Pressure Results - Laboratory Findings CBC and BMP: 02/09/19 03:48 02/09/19 03:48 ABG ABG pH 7.46 pH Units (7.32-7.45) H 02/09/19 04:42 ABG pCO2 34 mmHg (35-45) L 02/09/19 04:42 ABG pO2 75 mmHg (85-104) L 02/09/19 04:42 ABG O2 Saturation 96 % (95-98) 02/09/19 04:42 PT/INR, D-dimer PT 12.4 Seconds (9.4-12.1) H 02/07/19 04:37 Abnormal lab findings: Abnormal lab results WBC 11.2 K/mcL (4.3-11.1) H 02/09/19 03:48 RBC 3.26 M/mcL (4.19-5.50) L 02/09/19 03:48 Hgb 10.0 g/dL (12.9-16.9) L 02/09/19 03:48 Hct 30.4 % (37.5-50.1) L 02/09/19 03:48 MCHC 30.6 g/dL (31.6-35.5) L 02/07/19 04:37 Neutrophils # 9.0 K/mcL (1.6-8.9) H 02/09/19 03:48 PT 12.4 Seconds (9.4-12.1) H 02/07/19 04:37 ABG pH 7.46 pH Units (7.32-7.45) H 02/09/19 04:42 ABG pCO2 34 mmHg (35-45) L 02/09/19 04:42 ABG pO2 75 mmHg (85-104) L 02/09/19 04:42 ABG O2 Saturation 99 % (95-98) H 02/08/19 05:26 VBG pO2 57 mmHg (25-50) H 02/07/19 04:54 Sodium 146 mEq/L (136-145) H 02/07/19 21:22 Potassium 3.2 mEq/L (3.5-5.1) L D 02/09/19 03:48 Chloride 108 mEq/L (98-107) H 02/09/19 03:48 Carbon Dioxide 16 mEq/L (23-29) L 02/08/19 04:00 BUN 25 mg/dL (8-23) H 02/08/19 04:00 BUN/Creatinine Ratio 34 (6-26) H 02/08/19 04:00 Glucose 298 mg/dL (70-105) H 02/09/19 03:48 POC Glucose 250 mg/dL (70-99) H 02/08/19 23:50 Serum Osmolality 340 mOsm/kg (280-300) H 02/06/19 13:30 Calculated Osmolality 303 (280-300) H 02/09/19 03:48 Calcium 7.7 mg/dL (8.6-10.3) L 02/09/19 03:48 Phosphorus 2.6 mg/dL (2.7-4.5) L 02/07/19 04:37 Troponin I 0.04 ng/mL (< 0.04) H* 02/06/19 13:30 Serum Total Protein 5.8 g/dL (6.4-8.9) L 02/07/19 04:37 Albumin 2.9 g/dL (3.5-5.7) L 02/07/19 04:37 Albumin/Globulin Ratio 1.0 (1.1-2.2) L 02/07/19 04:37 Urine Clarity Turbid (Clear) A 02/06/19 14:40 Ur Specific [place] > 1.030 (1.010-1.025) H 02/06/19 14:40 Urine Protein 100 mg/dL (Neg-Trace) H 02/06/19 14:40 Urine Glucose (UA) 500 mg/dL (Normal) H 02/06/19 14:40 Urine Blood Small (Negative) H 02/06/19 14:40 Urine Bilirubin Small (Negative) H 02/06/19 14:40 Ur Leukocyte Esterase Small (Negative) H 02/06/19 14:40 Urine Microscopic RBC 15-30 per hpf (0-3) H 02/06/19 14:40 Urine Microscopic WBC 50-100 per hpf (0-3) H 02/06/19 14:40 Ur Squamous Epith Cells Many per lpf (None-Few) H 02/06/19 14:40 Granular Casts Few per lpf (None Seen) H 02/06/19 14:40 Ur Culture Indicated? YES (NO) A 02/06/19 14:40 CSF Glucose 99 mg/dL (40-70) H 02/07/19 17:20 CSF Total Protein 88 mg/dL (15-45) H 02/07/19 17:20 Vancomycin Trough 13 mcg/mL (5-10) H 02/08/19 04:00 Staphylococcus sp PCR DETECTED (Not Detect) A 02/06/19 14:00 mecA-Methicil Res Gene DETECTED (Not Detect) A 02/06/19 14:00 - Microbiology Findings Microbiology Findings: Microbiology, Last 48 Hours 02/07/19 17:20 CSF Culture - Preliminary Cerebral Spinal Fluid 02/06/19 14:00 Blood Culture - Final Peripheral Venipuncture Staphylococcus epidermidis 02/06/19 14:40 Urine Culture - Final Urine,Clean Catch No growth. - Clinical Findings Intake & Output: Intake & Output 02/09/19 02/09/19 02/09/19 07:59 15:59 23:59 Intake Total 1102.8 / 1435.8 218 / 1435.8 115 / 1435.8 Output Total 350 / 600 150 / 600 100 / 600 Balance 752.8 / 835.8 68 / 835.8 15 / 835.8 Weight 68.6 kg - Attending Attestation I saw and evaluated this patient and my medical decision-making was reviewed wi th the Resident Physician. I agree with the documented findings, disposition and treatment plan as described except to the extent set forth below. We independently had [id number] contact with the patient I spent 33 minutes of Critical Care time with this patient. It involved decision making of high complexity to assess, manipulate, and support vital organ system failure and/or to prevent further life threatening deterioration of the patient's condition. The time involved in the performance of separately reportable procedures was not counted toward critical care time. Patient seen and examined at bedside Labs, radiology, chart personally reviewed. Management was reviewed during multidisciplinary critical care rounds. GYM MANAGER: Patient is completely encephalopathy CSF did not show any evidence of infection and the Gram stain and culture cell count not significant to discontinue all the intracranial antibiotics Pulm: Patient has acceptable oxygenation and ventilation to cover for aspiration pneumonia. Low tidal volume strategy Cards: Patient is hemodynamically stable no evidence of shock FEN-GI: To keep nutrition according to dietary recommendations Renal: Labs and output reviewed ID: To cover with broad-spectrum gram-negative antibiotics Heme/Onc: Labs reviewed Endo: Glucose Monitored Integ/MSK: Skin Care per routine ICU Nursing Protocol to prevent ulcers. Lines: All lines examined without evidence of infection : Dispo: Critically ill CODE:[id number]
--- NOTE | 2019-02-09 09:22 | Neurology Progress Note ---
<Giuseppe Luna M - Last Filed: 02/09/19 11:47> Date of Encounter: 02/09/19 Time of Encounter: 09:00 Assessment and Plan (1) Altered mental status Current Visit: Yes Status: Acute Start Sinemet 25-100 TID which may offset some of the stiffness and resistance to repositioning patient is experiencing, but is unlikely to have any affect on his current cognitive state. Reviewed results of Lumbar puncture showing elevated protein and glucose but no WBC's. The absence of elevated white count in lumbar puncture makes infectious etiology highly unlikely. Recommend discontinuing Acyclovir at this time. Will continue to follow. Subjective Principal diagnosis: Encephalopathy Interval history: Mr. Mcnair is a 73 year old male with past medical history significant for Parkinsons Disease, Type 2 Diabetes, Hypertension and bradycardia with a pacer. He was seen at bedside where he remains intubated without sedation. He had no purposeful movement and was nonresponsive to painful stimuli. He was unable to follow simple commands. He did display resistance to being repositioned. Nursing staff continues to report that he withdraws when suctioning and that he shakes his head no when he is repositioned. He has not been receiving his Sinemet but will restart today. Objective - Constitutional Vitals: Temp Pulse Resp BP Pulse Ox 99.0 F 66 30 123/55 100 02/09/19 07:45 02/09/19 09:00 02/09/19 09:00 02/09/19 09:00 02/09/19 09:00 General appearance: Present: severe distress (on vent), thin Exam: Normal [place] - Neurological Exam Sensorimotor examination: Present: other (unable to assess due to patients intubation and nonresponsive state) Motor Examination: Present: other (unable to assess due to patients intubation and nonresponsive state) Sensation intact: Present: other (unable to assess due to patients intubation and nonresponsive state) Posture: Present: rigid Reflex and gait examination: other (unable to assess due to patients intubation and nonresponsive state) Mental Status Examination: Present: does not follow commands, no spontaneous eye opening to voice or tactile stimulation. Absent: awake, alert, oriented to person, oriented to place, oriented to time, follows commands appropriately, answers questions appropriately, agitated, opens eyes to voice, opens eyes to noxious stimulation, makes eye contact, follows simple commands, localizes noxious stimulation, grimmacing, answers questions by nodding yes or no, hook and gasp reflex Cranial nerve examination: Present: no facial asymmetry is present Results - Laboratory Findings CBC and BMP: 02/09/19 03:48 02/09/19 03:48 Abnormal lab findings: Abnormal lab results WBC 11.2 K/mcL (4.3-11.1) H 02/09/19 03:48 RBC 3.26 M/mcL (4.19-5.50) L 02/09/19 03:48 Hgb 10.0 g/dL (12.9-16.9) L 02/09/19 03:48 Hct 30.4 % (37.5-50.1) L 02/09/19 03:48 MCHC 30.6 g/dL (31.6-35.5) L 02/07/19 04:37 Neutrophils # 9.0 K/mcL (1.6-8.9) H 02/09/19 03:48 PT 12.4 Seconds (9.4-12.1) H 02/07/19 04:37 ABG pH 7.46 pH Units (7.32-7.45) H 02/09/19 04:42 ABG pCO2 34 mmHg (35-45) L 02/09/19 04:42 ABG pO2 75 mmHg (85-104) L 02/09/19 04:42 ABG O2 Saturation 99 % (95-98) H 02/08/19 05:26 VBG pO2 57 mmHg (25-50) H 02/07/19 04:54 Sodium 146 mEq/L (136-145) H 02/07/19 21:22 Potassium 3.2 mEq/L (3.5-5.1) L D 02/09/19 03:48 Chloride 108 mEq/L (98-107) H 02/09/19 03:48 Carbon Dioxide 16 mEq/L (23-29) L 02/08/19 04:00 BUN 25 mg/dL (8-23) H 02/08/19 04:00 BUN/Creatinine Ratio 34 (6-26) H 02/08/19 04:00 Glucose 298 mg/dL (70-105) H 02/09/19 03:48 POC Glucose 250 mg/dL (70-99) H 02/08/19 23:50 Serum Osmolality 340 mOsm/kg (280-300) H 02/06/19 13:30 Calculated Osmolality 303 (280-300) H 02/09/19 03:48 Calcium 7.7 mg/dL (8.6-10.3) L 02/09/19 03:48 Phosphorus 2.6 mg/dL (2.7-4.5) L 02/07/19 04:37 Troponin I 0.04 ng/mL (< 0.04) H* 02/06/19 13:30 Serum Total Protein 5.8 g/dL (6.4-8.9) L 02/07/19 04:37 Albumin 2.9 g/dL (3.5-5.7) L 02/07/19 04:37 Albumin/Globulin Ratio 1.0 (1.1-2.2) L 02/07/19 04:37 Urine Clarity Turbid (Clear) A 02/06/19 14:40 Ur Specific [place] > 1.030 (1.010-1.025) H 02/06/19 14:40 Urine Protein 100 mg/dL (Neg-Trace) H 02/06/19 14:40 Urine Glucose (UA) 500 mg/dL (Normal) H 02/06/19 14:40 Urine Blood Small (Negative) H 02/06/19 14:40 Urine Bilirubin Small (Negative) H 02/06/19 14:40 Ur Leukocyte Esterase Small (Negative) H 02/06/19 14:40 Urine Microscopic RBC 15-30 per hpf (0-3) H 02/06/19 14:40 Urine Microscopic WBC 50-100 per hpf (0-3) H 02/06/19 14:40 Ur Squamous Epith Cells Many per lpf (None-Few) H 02/06/19 14:40 Granular Casts Few per lpf (None Seen) H 02/06/19 14:40 Ur Culture Indicated? YES (NO) A 02/06/19 14:40 CSF Glucose 99 mg/dL (40-70) H 02/07/19 17:20 CSF Total Protein 88 mg/dL (15-45) H 02/07/19 17:20 Vancomycin Trough 13 mcg/mL (5-10) H 02/08/19 04:00 Staphylococcus sp PCR DETECTED (Not Detect) A 02/06/19 14:00 mecA-Methicil Res Gene DETECTED (Not Detect) A 02/06/19 14:00 Consult Discharge Plan - Plan Referrals: Julio Seals Jr, MD [Primary Care Provider] - <Etta Nunez I - Last Filed: 02/09/19 16:34> Date of Encounter: 02/09/19 Assessment and Plan (1) Altered mental status Current Visit: Yes Status: Acute Pt was seen and examined, my medical decision was reviewed with the Resident Physician, I agree with the documented findings, disposition and treatment plan, as described except to the extent set forth below. No significant change in overall mental status of the patient he remain intubated , very stiff not following any commands CSF analysis shows normal WBC count, though proteins and glucose were elevated, likely due to metabolic dysfunction as well as lumbar stenosis Gram stain is negative as well, so this time less likely it is a [employer] source of the infection suggest discontinuation of acyclovir He is getting quite stiff suggest to resume his Sinemet hopefully that would decrease his a stiffness though probably would not help much with his mental status. Other treatment is as per primary team. Etta Nunez MD Qualifiers: Altered mental status type: unspecified Qualified Code(s): R41.82 - Altered mental status, unspecified Objective - Constitutional Vitals: Temp Pulse Resp BP Pulse Ox 98.6 F 62 16 129/69 100 02/09/19 12:00 02/09/19 15:00 02/09/19 16:27 02/09/19 15:00 02/09/19 16:27 Results - Laboratory Findings CBC and BMP: 02/09/19 03:48 02/09/19 03:48 Abnormal lab findings: Abnormal lab results WBC 11.2 K/mcL (4.3-11.1) H 02/09/19 03:48 RBC 3.26 M/mcL (4.19-5.50) L 02/09/19 03:48 Hgb 10.0 g/dL (12.9-16.9) L 02/09/19 03:48 Hct 30.4 % (37.5-50.1) L 02/09/19 03:48 MCHC 30.6 g/dL (31.6-35.5) L 02/07/19 04:37 Neutrophils # 9.0 K/mcL (1.6-8.9) H 02/09/19 03:48 PT 12.4 Seconds (9.4-12.1) H 02/07/19 04:37 ABG pH 7.46 pH Units (7.32-7.45) H 02/09/19 04:42 ABG pCO2 34 mmHg (35-45) L 02/09/19 04:42 ABG pO2 75 mmHg (85-104) L 02/09/19 04:42 ABG O2 Saturation 99 % (95-98) H 02/08/19 05:26 VBG pO2 57 mmHg (25-50) H 02/07/19 04:54 Sodium 146 mEq/L (136-145) H 02/07/19 21:22 Potassium 3.2 mEq/L (3.5-5.1) L D 02/09/19 03:48 Chloride 108 mEq/L (98-107) H 02/09/19 03:48 Carbon Dioxide 16 mEq/L (23-29) L 02/08/19 04:00 BUN 25 mg/dL (8-23) H 02/08/19 04:00 BUN/Creatinine Ratio 34 (6-26) H 02/08/19 04:00 Glucose 298 mg/dL (70-105) H 02/09/19 03:48 POC Glucose 250 mg/dL (70-99) H 02/08/19 23:50 Serum Osmolality 340 mOsm/kg (280-300) H 02/06/19 13:30 Calculated Osmolality 303 (280-300) H 02/09/19 03:48 Calcium 7.7 mg/dL (8.6-10.3) L 02/09/19 03:48 Phosphorus 2.6 mg/dL (2.7-4.5) L 02/07/19 04:37 Troponin I 0.04 ng/mL (< 0.04) H* 02/06/19 13:30 Serum Total Protein 5.8 g/dL (6.4-8.9) L 02/07/19 04:37 Albumin 2.9 g/dL (3.5-5.7) L 02/07/19 04:37 Albumin/Globulin Ratio 1.0 (1.1-2.2) L 02/07/19 04:37 Urine Clarity Turbid (Clear) A 02/06/19 14:40 Ur Specific [place] > 1.030 (1.010-1.025) H 02/06/19 14:40 Urine Protein 100 mg/dL (Neg-Trace) H 02/06/19 14:40 Urine Glucose (UA) 500 mg/dL (Normal) H 02/06/19 14:40 Urine Blood Small (Negative) H 02/06/19 14:40 Urine Bilirubin Small (Negative) H 02/06/19 14:40 Ur Leukocyte Esterase Small (Negative) H 02/06/19 14:40 Urine Microscopic RBC 15-30 per hpf (0-3) H 02/06/19 14:40 Urine Microscopic WBC 50-100 per hpf (0-3) H 02/06/19 14:40 Ur Squamous Epith Cells Many per lpf (None-Few) H 02/06/19 14:40 Granular Casts Few per lpf (None Seen) H 02/06/19 14:40 Ur Culture Indicated? YES (NO) A 02/06/19 14:40 CSF Glucose 99 mg/dL (40-70) H 02/07/19 17:20 CSF Total Protein 88 mg/dL (15-45) H 02/07/19 17:20 Vancomycin Trough 13 mcg/mL (5-10) H 02/08/19 04:00 Staphylococcus sp PCR DETECTED (Not Detect) A 02/06/19 14:00 mecA-Methicil Res Gene DETECTED (Not Detect) A 02/06/19 14:00
[2019-02-09 09:38] LABS: Phosphorous 2.7 mg/dL (2.7-4.5)
[2019-02-09] MEDS: Carbidopa/Levodopa 25/100 TABLET PO SCH ×3 (09:43→21:10)
[2019-02-09] MEDS: *HR* FentaNYL (PF) 100 MCG/2 ML VIAL IVP PRN ×2 (10:59→17:31)
[2019-02-09] MEDS ORDERED: cefTRIAXone 2,000 MG in Water for inj. (sterile) 20 ML IVP SCH (13:00)
[2019-02-09] MEDS: cefTRIAXone 1,000 MG in Water for inj. (sterile) 10 ML IVP SCH (13:37)
[2019-02-09] MEDS ORDERED: Potassium Chloride Elixir 20 MEQ/15 ML UDC PO SCH (22:00)
[2019-02-10] MEDS: Artificial Tears SOLN 15 ML BOTTLE BOTH EYES SCH ×6 (04:19→23:18)
[2019-02-10] MEDS: Insulin LISPRO 300 UNITS/3 ML VIAL SQ SCH ×6 (04:20→23:18)
[2019-02-10 04:45] LABS: ABG Base Excess 3 mEq/L (-2 to 3); ABG HCO3 26 mEq/L (21-27); ABG Oxygen Saturation 96 % (95-98); ABG PCO2 33 mmHg (35-45); ABG PH 7.51 pH Units (7.32-7.45); ABG PO2 70 mmHg (85-104); ABG TCO2 27 mEq/L (20-26); Blood Gas Modality ASSIST CONTROL; Blood Gas PEEP 5 cm H2O; Blood Gas VT 480 cc
[2019-02-10 05:33] LABS: Hematocrit 34.6 % (37.5-50.1); Hemoglobin 11.2 g/dL (12.9-16.9); Mean Corpuscular HGB Conc 32.4 g/dL (31.6-35.5); Mean Corpuscular Hemoglobin 30.4 pg (28.0-33.3); Mean Platelet Volume 12.2 fL (9.4-12.4); Platelet Count 174 K/mcL (140-400); Red Blood Count 3.68 M/mcL (4.19-5.50); White Blood Count 9.2 K/mcL (4.3-11.1)
[2019-02-10 05:56] LABS: BUN/Creatinine Ratio 22 (6-26); Blood Urea Nitrogen 16 mg/dL (8-23); Calcium 7.9 mg/dL (8.6-10.3); Carbon Dioxide 25 mEq/L (23-29); Chloride 108 mEq/L (98-107); Glucose 244 mg/dL (70-105); Osmolality,Calculated 303 (280-300); Potassium 3.9 mEq/L (3.5-5.1); Sodium 142 mEq/L (136-145); eGFR For African Americans > 60 (> 60); eGFR For Non-African Americans > 60 (> 60)
[2019-02-10] MEDS: *HR* Enoxaparin 40 MG/0.4 ML SYRINGE SQ SCH (06:17)
--- NOTE | 2019-02-10 08:04 | Pulmonology Progress Note ---
Date of Encounter: 02/10/19 Time of Encounter: 08:00 Assessment and Plan (1) Acute respiratory failure with hypoxia Current Visit: Yes Status: Acute most contributed by acute toxic/metabolic encephalopathy with possible seizure- like activity to continue low tidal volume strategy no convincing evidence of pneumonia causing this V/Q mismatch will try to liberate FiO2 as tolerated. 02/10 patient V/Q mismatch is lot stable 48 hours ventilatory work done this at minimum over the 48 hours. Patient mentation is slowly improving we will try to extubate to nasal cannula today (2) Acute metabolic encephalopathy Current Visit: Yes Status: Acute Patient has significant metabolic encephalopathy will continue acyclovir for CSF glucose and protein is higher CSF herpes viral was sent . CSF Gram stain was negative to culture growth at 24 hours will discontinue ampicillin we will keep Gram-negative gram-positive coverage for possible pneumonia will reduce the meningitis dose . patient has some seizure-like activity. will start On Keppra. 02/10 discontinued intracranial antibiotics to cover with the broad-spectrum antibiotics for possible pneumonia patient presented with sepsis with background of Parkinson's features resulted in this severe encephalopathy takes some time f or still recovered as the neurologist that to start with is very minimal thank you for neurology workup appreciate their recommendations. (3) Sepsis Current Visit: Yes Status: Acute patient is covered with broad-spectrum antibiotics including for UTI and possible aspiration pneumonia Qualifiers: Sepsis type: sepsis due to unspecified organism Sepsis acute organ dysfunction status: unspecified Qualified Code(s): A41.9 - Sepsis, unspecified organism (4) DVT prophylaxis Current Visit: Yes Status: Acute to continue the current regimen. (5) Goals of care, counseling/discussion Current Visit: Yes Status: Acute Consulted palliative care helps his goals of care patient family and change the goals of care to DNR comfort care DNI. After extubation patient will not be reintubated. Subjective Principal diagnosis: Encephalopathy Interval history: patient did not have any acute events overnight patient still has encephalopathy slowly improving his pulmonary status is stable over 48 hours we will attempt extubation today Objective PUL Vital signs: Last Vital Signs Temp 98.8 F 02/10/19 07:49 Pulse 60 02/10/19 07:00 Resp 24 02/10/19 07:49 BP 142/67 02/10/19 07:00 Pulse Ox 98 02/10/19 07:49 General appearance: lethargic Eyes: nonicteric ENT: oropharynx moist Auscultation: bilateral: diminished breath sounds ([place]), rales (Scattered Minimal rales) Cardiovascular: regular rate and rhythm Gastrointestinal: hypoactive bowel sounds Extremities: no cyanosis, no edema unable to assess due to mental status Ventilator Settings Ventilator Settings: Ventilator Settings, Last 8 Hours Ventilator Tidal Volume 480 Setting Ventilator Tidal Volume 480 Setting Ventilator Tidal Volume 480 Setting Ventilator Tidal Volume 480 Setting Ventilator Tidal Volume 480 Setting Ventilator Tidal Volume 480 Setting Ventilator Tidal Volume 480 Setting Ventilator Tidal Volume 480 Setting Ventilator Tidal Volume 480 Setting Ventilator Tidal Volume 480 Setting Ventilator Tidal Volume 480 Setting Ventilator Respiratory Rate 16 Setting Ventilator Respiratory Rate 16 Setting Ventilator Respiratory Rate 16 Setting Ventilator Respiratory Rate 16 Setting Ventilator Respiratory Rate 16 Setting Ventilator Respiratory Rate 16 Setting Ventilator Respiratory Rate 16 Setting Ventilator Respiratory Rate 16 Setting Ventilator Respiratory Rate 16 Setting Ventilator Respiratory Rate 16 Setting Ventilator Respiratory Rate 16 Setting Actual Respiratory Rate 22 Actual Respiratory Rate 20 Actual Respiratory Rate 22 Actual Respiratory Rate 24 Actual Respiratory Rate 18 Actual Respiratory Rate 22 Actual Respiratory Rate 16 Actual Respiratory Rate 16 Actual Respiratory Rate 18 Actual Respiratory Rate 17 Actual Respiratory Rate 17 Positive End Expiratory 5 Pressure Positive End Expiratory 5 Pressure Positive End Expiratory 5 Pressure Positive End Expiratory 5 Pressure Positive End Expiratory 5 Pressure Positive End Expiratory 5 Pressure Positive End Expiratory 5 Pressure Positive End Expiratory 5 Pressure Positive End Expiratory 5 Pressure Positive End Expiratory 5 Pressure Positive End Expiratory 5 Pressure Positive End Expiratory 5 Pressure Peak Inspiratory Airway 11 Pressure Peak Inspiratory Airway 11 Pressure Peak Inspiratory Airway 16 Pressure Peak Inspiratory Airway 16 Pressure Peak Inspiratory Airway 16 Pressure Peak Inspiratory Airway 20 Pressure Peak Inspiratory Airway 20 Pressure Peak Inspiratory Airway 20 Pressure Peak Inspiratory Airway 20 Pressure Peak Inspiratory Airway 21 Pressure Peak Inspiratory Airway 21 Pressure Results - Laboratory Findings CBC and BMP: 02/10/19 05:22 02/10/19 05:22 ABG ABG pH 7.51 pH Units (7.32-7.45) H 02/10/19 04:42 ABG pCO2 33 mmHg (35-45) L 02/10/19 04:42 ABG pO2 70 mmHg (85-104) L 02/10/19 04:42 ABG O2 Saturation 96 % (95-98) 02/10/19 04:42 PT/INR, D-dimer PT 12.4 Seconds (9.4-12.1) H 02/07/19 04:37 Abnormal lab findings: Abnormal lab results WBC 11.2 K/mcL (4.3-11.1) H 02/09/19 03:48 RBC 3.68 M/mcL (4.19-5.50) L 02/10/19 05:22 Hgb 11.2 g/dL (12.9-16.9) L 02/10/19 05:22 Hct 34.6 % (37.5-50.1) L 02/10/19 05:22 MCHC 30.6 g/dL (31.6-35.5) L 02/07/19 04:37 Neutrophils # 9.0 K/mcL (1.6-8.9) H 02/09/19 03:48 PT 12.4 Seconds (9.4-12.1) H 02/07/19 04:37 ABG pH 7.51 pH Units (7.32-7.45) H 02/10/19 04:42 ABG pCO2 33 mmHg (35-45) L 02/10/19 04:42 ABG pO2 70 mmHg (85-104) L 02/10/19 04:42 ABG Total CO2 27 mEq/L (20-26) H 02/10/19 04:42 ABG O2 Saturation 99 % (95-98) H 02/08/19 05:26 VBG pO2 57 mmHg (25-50) H 02/07/19 04:54 Sodium 146 mEq/L (136-145) H 02/07/19 21:22 Potassium 3.2 mEq/L (3.5-5.1) L D 02/09/19 03:48 Chloride 108 mEq/L (98-107) H 02/10/19 05:22 Carbon Dioxide 16 mEq/L (23-29) L 02/08/19 04:00 BUN 25 mg/dL (8-23) H 02/08/19 04:00 BUN/Creatinine Ratio 34 (6-26) H 02/08/19 04:00 Glucose 244 mg/dL (70-105) H 02/10/19 05:22 POC Glucose 226 mg/dL (70-99) H 02/09/19 23:27 Serum Osmolality 340 mOsm/kg (280-300) H 02/06/19 13:30 Calculated Osmolality 303 (280-300) H 02/10/19 05:22 Calcium 7.9 mg/dL (8.6-10.3) L 02/10/19 05:22 Phosphorus 2.6 mg/dL (2.7-4.5) L 02/07/19 04:37 Troponin I 0.04 ng/mL (< 0.04) H* 02/06/19 13:30 Serum Total Protein 5.8 g/dL (6.4-8.9) L 02/07/19 04:37 Albumin 2.9 g/dL (3.5-5.7) L 02/07/19 04:37 Albumin/Globulin Ratio 1.0 (1.1-2.2) L 02/07/19 04:37 Urine Clarity Turbid (Clear) A 02/06/19 14:40 Ur Specific [place] > 1.030 (1.010-1.025) H 02/06/19 14:40 Urine Protein 100 mg/dL (Neg-Trace) H 02/06/19 14:40 Urine Glucose (UA) 500 mg/dL (Normal) H 02/06/19 14:40 Urine Blood Small (Negative) H 02/06/19 14:40 Urine Bilirubin Small (Negative) H 02/06/19 14:40 Ur Leukocyte Esterase Small (Negative) H 02/06/19 14:40 Urine Microscopic RBC 15-30 per hpf (0-3) H 02/06/19 14:40 Urine Microscopic WBC 50-100 per hpf (0-3) H 02/06/19 14:40 Ur Squamous Epith Cells Many per lpf (None-Few) H 02/06/19 14:40 Granular Casts Few per lpf (None Seen) H 02/06/19 14:40 Ur Culture Indicated? YES (NO) A 02/06/19 14:40 CSF Glucose 99 mg/dL (40-70) H 02/07/19 17:20 CSF Total Protein 88 mg/dL (15-45) H 02/07/19 17:20 Vancomycin Trough 13 mcg/mL (5-10) H 02/08/19 04:00 Staphylococcus sp PCR DETECTED (Not Detect) A 02/06/19 14:00 mecA-Methicil Res Gene DETECTED (Not Detect) A 02/06/19 14:00 - Microbiology Findings Microbiology Findings: Microbiology, Last 48 Hours 02/07/19 17:20 CSF Culture - Preliminary Cerebral Spinal Fluid 02/06/19 14:00 Blood Culture - Final Peripheral Venipuncture Staphylococcus epidermidis 02/06/19 14:40 Urine Culture - Final Urine,Clean Catch No growth. - Clinical Findings Intake & Output: Intake & Output 02/09/19 02/10/19 02/10/19 23:59 07:59 15:59 Intake Total 478 / 1798.8 277 / 277 Output Total 175 / 675 150 / 150 Balance 303 / 1123.8 127 / 127 Weight 70.3 kg Consult Discharge Plan - Plan Referrals: Julio Seals Jr, MD [Primary Care Provider] - Critical Care Time Critical Care Time: Yes Total Critical Care Time: 35 Attestation: I spent 35 minutes of Critical Care time with this patient. It involved decision making of high complexity to assess, manipulate, and support vital organ system failure and/or to prevent further life threatening deterioration of the patient's condition. The time involved in the performance of separately reportable procedures was not counted toward critical care time.
[2019-02-10] MEDS: Chlorhexidine Rinse 15 ML MOUTHWASH MM SCH ×2 (08:27→20:37)
[2019-02-10] MEDS: cefTRIAXone 1,000 MG in Water for inj. (sterile) 10 ML IVP SCH (08:28)
[2019-02-10] MEDS: Carbidopa/Levodopa 25/100 TABLET PO SCH ×3 (08:28→20:37)
[2019-02-10] MEDS: Famotidine 20 MG/2 ML VIAL IVP SCH ×2 (09:00→18:24)
--- NOTE | 2019-02-10 11:51 | Palliative - Consult Note ---
<Sierra Butt - Last Filed: 02/10/19 13:41> Date of Encounter: 02/10/19 Time of Encounter: 11:42 - Assessment and Plan (1) Goals of care, counseling/discussion Current Visit: Yes Status: Acute Assessment and plan: Discussed at length with patient's Carrie (KAY), Carrie's sister, and sister's Marino, patient's goals of care. Dr. Clifford, myself, Cook Frozen Dessert Oscar, and nurse Chanel were all present. Randolph has rapidly declined in the past 2 weeks after entering the nursing facility. Prior to going to the nursing facility when he was living at home. Carrie states that he was able to communicate (although this fluctuated given his dementia), he could walk, and he could feed himself. Caring for him just became to much of a burden at home and she could no longer do it on her own. After entering the [facility], Randolph stopped communicating, he stopped eating, and he eventually became unresponsive to stimulation, which is the point where he was brought into the hospital. Carrie confirmed that she and Randolph had conversations regarding his wishes when he was still thinking clearly, and he wished not to be resuscitated or intubated. Randolph had a documented DNR-CC form on file that was signed on 01/27/19 by Carrie. Carrie stated that in the ER, she gave permission for intubation as there was a possibility of recovery at that time. At this time, Carrie understands that if Randolph is to be extubated, he may not be able to breath on his own due to his mental status and unresponsiveness. She stated that she would not want him to be re-intubated and that she would want to make him comfortable, as this is what he would have wanted. Carrie also states that she would not want a PEG tube as this may prolong the dying process. The plan at this time is to medically extubate when appropriate and to make the patient comfortable. The patient is NOT to be re-intubated, nor is the patient to receive a PEG per Carrie's wishes. (2) Palliative care encounter Current Visit: Yes Status: Acute (3) Acute metabolic encephalopathy Current Visit: Yes Status: Acute (4) Acute respiratory failure with hypoxia Current Visit: Yes Status: Acute (5) Dehydration Current Visit: Yes Status: Acute (6) Dementia Current Visit: Yes Status: Acute Qualifiers: Dementia type: unspecified type Dementia behavioral disturbance: with behavioral disturbance Qualified Code(s): F03.91 - Unspecified dementia with behavioral disturbance Palliative-CN HPI - Data of Consult Consult date: 02/10/19 Requesting Physician: Chuy Saenz Primary Care Provider: Julio Seals Jr, MD - Consult Narrative Reason for consult: [facility] History of present illness: Mr. Mcnair is a 73 year old male with history of baseline advanced dementia who presented to the ED from [facility] for lethargy. Patient's states his care become too overwelming at which point she decided to place him in a m[facility]. Prior to being in the nursing facility he was still able to communicate somewhat appropriately, ambulate, and feed himself. However, after entering the mcc he rapidly declined. Over a 2 week period he stopped eating, gett ing out of bed, and eventually became unresponsive. Patient was admitted due to possible Sepsis, acute hypoxic respiratory failure (intubated in the ED), acute metabolic encephalopathy, hypernatremia, hyperglycemia, and dehydration. Today is hospital day4. Patient lying in bed still intubated on the ventilator without sedation, not requiring pressors, however not responding to commands or stimulation. Family present at bedside. CC: Chuy Saenz - Time Spent with Patient Time: Total time spent is greater than 50% in coordination of care (as documented) at patient's floor/unit and/or counseling patient: Past Med Surg Social Fam HX - Past Medical History Medical history: coronary artery disease, dementia, diabetes, GERD, hyperlipidemia, hypertension Psychiatric history: no psych history - Past Surgical History Surgical History: angioplasty/stent Additional surgical history: BACK SURGERY. RIGHT HAND DIGIT SURGERY - Social History Smoking Status: Former smoker Smokeless Tobacco Status: No Alcohol use: none Drug use: none - Family History Mother Living Status: Hx Family Cardiac Disorders: Yes ([place]) Medications and Allergies Aspirin [Lo-Dose Aspirin EC] 81 mg PO DAILY 12/29/16 [History] Atorvastatin Calcium [Lipitor] 80 mg PO HS 12/29/16 [History] Donepezil HCl [Aricept] 10 mg PO HS 12/29/16 [History] Lisinopril [Zestril] 20 mg PO BID 12/29/16 [History] Memantine HCl 10 mg PO BID 12/29/16 [History] amLODIPine [Norvasc] 5 mg PO DAILY 12/29/16 [History] Acetaminophen [Extra Strength Non-Aspirin] 1,000 mg PO BID 02/06/19 [History] Carbidopa/Levodopa ER 50/200 [Sinemet ER 50-200 Tab] 1 tab PO BID 02/06/19 [History] Metformin HCl [Fortamet] 1,000 mg PO BIDWM 02/06/19 [History] Allergy/AdvReac Type Severity Reaction Status Date / Time No Known Allergies Allergy Verified 12/29/16 07:43 ROS unobtainable: due to mental status Palliative Care-Exam - Constitutional Vitals: Temp Pulse Resp BP Pulse Ox 98.8 F 65 34 130/90 98 02/10/19 07:49 02/10/19 10:00 02/10/19 10:00 02/10/19 10:00 02/10/19 10:00 Exam: Gen: Vitals noted. No acute distress. Intubated without sedations or agitation or signs of pain. HENT: Atraumatic; Normocephalic Cardiac: RRR, no murmur, +S1/S2 Pulmonary: CTA bilaterally, no wheezes, rales or rhonchi, equal chest expansion Abdomen: soft, nontender, no guarding. Extremities: no BLE edema, no cyanosis or clubbing Skin: warm, dry, intact, no rashes or lesions noted Neuro: Patient does not respond to commands or stimuli Psych: Unconscious, not on sedation or sedating medications Internal Medicine - CN: Reslt - Labs CBC & Chem 7: 02/10/19 05:22 02/10/19 05:22 Labs: Short CBC 02/10/19 Range/Units 05:22 WBC 9.2 (4.3-11.1) K/mcL Hgb 11.2 L (12.9-16.9) g/dL Hct 34.6 L (37.5-50.1) % Plt Count 174 (140-400) K/mcL BMP 02/10/19 05:22 Sodium 142 Potassium 3.9 Chloride 108 H Carbon Dioxide 25 BUN 16 Creatinine 0.73 Glucose 244 H Calcium 7.9 L - ABG Interpretation ABG results: ABG ABG pH 7.51 pH Units (7.32-7.45) H 02/10/19 04:42 ABG pCO2 33 mmHg (35-45) L 02/10/19 04:42 ABG pO2 70 mmHg (85-104) L 02/10/19 04:42 ABG O2 Saturation 96 % (95-98) 02/10/19 04:42 PT/INR, D-dimer PT 12.4 Seconds (9.4-12.1) H 02/07/19 04:37 Consult Discharge Plan - Plan Referrals: Julio Seals Jr, MD [Primary Care Provider] - Palliative Quality Palliative Quality: Screen for Code Status: Yes, Screen for Goals of Care: Yes, Screen for Pain: Yes, If Pain Regimen Started, Initiate Bowel Regimen: Yes, Screen for Nausea/Vomitting: Yes Code Status: 02/06/19 17:47 Resuscitation Status: Active [RES] Routine Comment: Resuscitation Status: DNR-Comfort Care 02/07/19 09:16 DNR [Resuscitation Status: Active] [RES] Routine Comment: with Intubation Resuscitation Status: DNR-Comfort Care-Arrest 02/10/19 11:37 DNR [Resuscitation Status: Active] [RES] Routine Comment: Resuscitation Status: [id number] Palliative Scale - Palliative Performance Scale How ambulatory is this patient?: Totally bed bound What is patient's level of activity and evidence of disease?: Unable to do any activity, Extensive disease How much self-care assistance does patient require?: Total care How much oral intake does the patient have?: Mouth care only What is this patient's level of consciousness?: Drowsy or coma with or without confusion Palliative Performance Score: 10 % <Krista Clifford - Last Filed: 02/10/19 15:54> Date of Encounter: 02/10/19 Palliative-CN HPI - Data of Consult Requesting Physician: Chuy Saenz Primary Care Provider: Julio Seals Jr, MD - Consult Narrative History of present illness: Mr. Mcnair is a 73 year old male CC: Chuy Saenz - Time Spent with Patient Time: Total time spent is greater than 50% in coordination of care (as documented) at patient's floor/unit and/or counseling patient: Palliative Care-Exam - Constitutional Vitals: Temp Pulse Resp BP Pulse Ox 98.7 F 68 22 139/66 98 02/10/19 11:43 02/10/19 14:00 02/10/19 14:00 02/10/19 14:00 02/10/19 14:00 Internal Medicine - CN: Reslt - Labs CBC & Chem 7: 02/10/19 05:22 02/10/19 05:22 Labs: Short CBC 02/10/19 Range/Units 05:22 WBC 9.2 (4.3-11.1) K/mcL Hgb 11.2 L (12.9-16.9) g/dL Hct 34.6 L (37.5-50.1) % Plt Count 174 (140-400) K/mcL BMP 02/10/19 05:22 Sodium 142 Potassium 3.9 Chloride 108 H Carbon Dioxide 25 BUN 16 Creatinine 0.73 Glucose 244 H Calcium 7.9 L - ABG Interpretation ABG results: ABG ABG pH 7.51 pH Units (7.32-7.45) H 02/10/19 04:42 ABG pCO2 33 mmHg (35-45) L 02/10/19 04:42 ABG pO2 70 mmHg (85-104) L 02/10/19 04:42 ABG O2 Saturation 96 % (95-98) 02/10/19 04:42 PT/INR, D-dimer PT 12.4 Seconds (9.4-12.1) H 02/07/19 04:37 - Impressions Impressions KUB X-Ray 02/10/19 11:58 IMPRESSION: Enteric tube in the stomach with the tip extending to the fundus. D/ / 02/10/2019 12:32:26 Fredo Chen MD / kaley Interpreting Provider: Fredo Chen MD - Attending Attestation Mr. Mcnair is a 73 year old male with history of baseline advanced dementia who presented to the ED from [facility] for lethargy. Patient was admitted due to possible Sepsis, acute hypoxic respiratory failure (intubated in the ED), acute metabolic encephalopathy, hypernatremia, hyperglycemia, and dehydration. Patient is hospital day #4, remains unresponsive, with some improvement of respiratory status. Palliative care discussion to clarify GOC. 1100 to 1145: conducted Family meeting with pt's Carrie (POA), Carrie's sister, and sister's Marino, along with resident Dr. Butt, midwife Oscar and nurse Chanel. For the details of conversation, refer to resident's note. Decision was to continue on current level of care, an hope that pt can be medically extubated. If pt is unable to maintain his airways, or if he remains unresponsive, will transition to comfort care. No re-intubation once extubated, no PEG tubes. Emotional support provided. Palliative care will follow. Total time spent with this patient: 75 minutes, with 50 minutes [id number] with patient, in meetings with family and coordination of care. Palliative Quality Code Status: 02/06/19 17:47 Resuscitation Status: Active [RES] Routine Comment: Resuscitation Status: DNR-Comfort Care 02/07/19 09:16 DNR [Resuscitation Status: Active] [RES] Routine Comment: with Intubation Resuscitation Status: DNR-Comfort Care-Arrest 02/10/19 11:37 DNR [Resuscitation Status: Active] [RES] Routine Comment: Resuscitation Status: [id number]
--- NOTE | 2019-02-10 13:23 | Neurology Progress Note ---
<Salomon Darnell - Last Filed: 02/10/19 13:19> Date of Encounter: 02/10/19 Time of Encounter: 13:19 Assessment and Plan (1) Altered mental status Current Visit: Yes Status: Acute Patient's mental state continues to be altered Multifactorial cause with acute respiratory failure with hypoxia, UTI and sepsis and acute metabolic encephalopathy -[employer]ician team managing ABX coverage with ceftriaxone Remains intubated today and unresponsive. Stiffness persists and the patient does not follow commands. Overall there has been no significant improvement overnight. As noted previously CSF analysis shows normal WBC with elevated proteins and glucose likely due to metabolic dysfunction. Gram stain is negative. TEST TECH infection thought to be unlikely. Acyclovir has been discontinued EEG completed demonstrating a paroxysmal event lasting for about 4 seconds resolving spontaneously which could be potential for seizure. There was also generalized slowing which is nonspecific and could be seen with generalized metabolic toxic encephalopathy consistent with diffuse cortical dysfunction Continue Keppra IV Although the patient stiffness persists recommend continuing Sinemet as hopefully this will decrease the stiffness but this will most likely not improve his mental state Antiemetic: Supportive care otherwise Neurology will continue to follow Qualifiers: Altered mental status type: unspecified Qualified Code(s): R41.82 - Altered mental status, unspecified Subjective Principal diagnosis: Encephalopathy Interval history: In brief is a PMH for Parkinson's disease, DM 2, HTN and bradycardia with pacer. The patient was seen and examined at bedside today. He continues to be intubated. He continues to have no purposeful movement today and is unresponsive to painful stimuli. He is still unable to follow commands. He continues to be stiff today as well. Palliative care team to have discussions with family today. Objective - Constitutional Vitals: Temp Pulse Resp BP Pulse Ox 98.7 F 68 20 152/76 95 02/10/19 11:43 02/10/19 13:00 02/10/19 13:00 02/10/19 13:00 02/10/19 13:00 General appearance: Present: severe distress (on vent), thin Exam: Sensorimotor examination: I am unable to form a sensorimotor examination due to patients intubation and nonresponsive state) Motor Examination: Present: Nonpurposeful movement of right arm seen with passive observation Sensation intact: Present: other (unable to assess due to patients intubation and nonresponsive state) Posture: Present: Rigidity persists Reflex and gait examination: Areflexic diffusely Mental Status Examination: Present: does not follow commands, no spontaneous eye opening to voice or tactile stimulation. Absent: awake, alert, oriented to person, oriented to place, oriented to time, follows commands appropriately, answers questions appropriately, agitated, opens eyes to voice, opens eyes to noxious stimulation, makes eye contact, follows simple commands, localizes noxious stimulation, grimmacing, answers questions by nodding yes or no, hook and gasp reflex Cranial nerve examination: Present: no facial asymmetry is present - Neurological Exam Sensorimotor examination: Present: other (unable to assess due to patients intubation and nonresponsive state) Motor Examination: Present: other (unable to assess due to patients intubation and nonresponsive state) Sensation intact: Present: other (unable to assess due to patients intubation an d nonresponsive state) Posture: Present: rigid Reflex and gait examination: other (unable to assess due to patients intubation and nonresponsive state) Mental Status Examination: Present: does not follow commands, no spontaneous eye opening to voice or tactile stimulation. Absent: awake, alert, oriented to person, oriented to place, oriented to time, follows commands appropriately, answers questions appropriately, agitated, opens eyes to voice, opens eyes to noxious stimulation, makes eye contact, follows simple commands, localizes noxious stimulation, grimmacing, answers questions by nodding yes or no, hook and gasp reflex Cranial nerve examination: Present: no facial asymmetry is present Results - Laboratory Findings CBC and BMP: 02/10/19 05:22 02/10/19 05:22 Abnormal lab findings: Abnormal lab results WBC 11.2 K/mcL (4.3-11.1) H 02/09/19 03:48 RBC 3.68 M/mcL (4.19-5.50) L 02/10/19 05:22 Hgb 11.2 g/dL (12.9-16.9) L 02/10/19 05:22 Hct 34.6 % (37.5-50.1) L 02/10/19 05:22 MCHC 30.6 g/dL (31.6-35.5) L 02/07/19 04:37 Neutrophils # 9.0 K/mcL (1.6-8.9) H 02/09/19 03:48 PT 12.4 Seconds (9.4-12.1) H 02/07/19 04:37 ABG pH 7.51 pH Units (7.32-7.45) H 02/10/19 04:42 ABG pCO2 33 mmHg (35-45) L 02/10/19 04:42 ABG pO2 70 mmHg (85-104) L 02/10/19 04:42 ABG Total CO2 27 mEq/L (20-26) H 02/10/19 04:42 ABG O2 Saturation 99 % (95-98) H 02/08/19 05:26 VBG pO2 57 mmHg (25-50) H 02/07/19 04:54 Sodium 146 mEq/L (136-145) H 02/07/19 21:22 Potassium 3.2 mEq/L (3.5-5.1) L D 02/09/19 03:48 Chloride 108 mEq/L (98-107) H 02/10/19 05:22 Carbon Dioxide 16 mEq/L (23-29) L 02/08/19 04:00 BUN 25 mg/dL (8-23) H 02/08/19 04:00 BUN/Creatinine Ratio 34 (6-26) H 02/08/19 04:00 Glucose 244 mg/dL (70-105) H 02/10/19 05:22 POC Glucose 226 mg/dL (70-99) H 02/09/19 23:27 Serum Osmolality 340 mOsm/kg (280-300) H 02/06/19 13:30 Calculated Osmolality 303 (280-300) H 02/10/19 05:22 Calcium 7.9 mg/dL (8.6-10.3) L 02/10/19 05:22 Phosphorus 2.6 mg/dL (2.7-4.5) L 02/07/19 04:37 Troponin I 0.04 ng/mL (< 0.04) H* 02/06/19 13:30 Serum Total Protein 5.8 g/dL (6.4-8.9) L 02/07/19 04:37 Albumin 2.9 g/dL (3.5-5.7) L 02/07/19 04:37 Albumin/Globulin Ratio 1.0 (1.1-2.2) L 02/07/19 04:37 Urine Clarity Turbid (Clear) A 02/06/19 14:40 Ur Specific [place] > 1.030 (1.010-1.025) H 02/06/19 14:40 Urine Protein 100 mg/dL (Neg-Trace) H 02/06/19 14:40 Urine Glucose (UA) 500 mg/dL (Normal) H 02/06/19 14:40 Urine Blood Small (Negative) H 02/06/19 14:40 Urine Bilirubin Small (Negative) H 02/06/19 14:40 Ur Leukocyte Esterase Small (Negative) H 02/06/19 14:40 Urine Microscopic RBC 15-30 per hpf (0-3) H 02/06/19 14:40 Urine Microscopic WBC 50-100 per hpf (0-3) H 02/06/19 14:40 Ur Squamous Epith Cells Many per lpf (None-Few) H 02/06/19 14:40 Granular Casts Few per lpf (None Seen) H 02/06/19 14:40 Ur Culture Indicated? YES (NO) A 02/06/19 14:40 CSF Glucose 99 mg/dL (40-70) H 02/07/19 17:20 CSF Total Protein 88 mg/dL (15-45) H 02/07/19 17:20 Vancomycin Trough 13 mcg/mL (5-10) H 02/08/19 04:00 Staphylococcus sp PCR DETECTED (Not Detect) A 02/06/19 14:00 mecA-Methicil Res Gene DETECTED (Not Detect) A 02/06/19 14:00 Consult Discharge Plan - Plan Referrals: Julio Seals Jr, MD [Primary Care Provider] - <Etta Nunez I - Last Filed: 02/10/19 16:18> Date of Encounter: 02/10/19 Assessment and Plan (1) Altered mental status Current Visit: Yes Status: Acute I have personally performed a face to face diagnostic evaluation, including HPI, EXAM, which is included in the Assesment and plan, which was discussed with Salomon Darnell CNP, I agree with the above outlined documentation. Etta Nunez MD. NeurologyI Qualifiers: Altered mental status type: unspecified Qualified Code(s): R41.82 - Altered mental status, unspecified Objective - Constitutional Vitals: Temp Pulse Resp BP Pulse Ox 98.9 F 62 20 139/55 97 02/10/19 15:50 02/10/19 16:00 02/10/19 16:00 02/10/19 16:00 02/10/19 16:00 Results - Laboratory Findings CBC and BMP: 02/10/19 05:22 02/10/19 05:22 Abnormal lab findings: Abnormal lab results WBC 11.2 K/mcL (4.3-11.1) H 02/09/19 03:48 RBC 3.68 M/mcL (4.19-5.50) L 02/10/19 05:22 Hgb 11.2 g/dL (12.9-16.9) L 02/10/19 05:22 Hct 34.6 % (37.5-50.1) L 02/10/19 05:22 MCHC 30.6 g/dL (31.6-35.5) L 02/07/19 04:37 Neutrophils # 9.0 K/mcL (1.6-8.9) H 02/09/19 03:48 PT 12.4 Seconds (9.4-12.1) H 02/07/19 04:37 ABG pH 7.51 pH Units (7.32-7.45) H 02/10/19 04:42 ABG pCO2 33 mmHg (35-45) L 02/10/19 04:42 ABG pO2 70 mmHg (85-104) L 02/10/19 04:42 ABG Total CO2 27 mEq/L (20-26) H 02/10/19 04:42 ABG O2 Saturation 99 % (95-98) H 02/08/19 05:26 VBG pO2 57 mmHg (25-50) H 02/07/19 04:54 Sodium 146 mEq/L (136-145) H 02/07/19 21:22 Potassium 3.2 mEq/L (3.5-5.1) L D 02/09/19 03:48 Chloride 108 mEq/L (98-107) H 02/10/19 05:22 Carbon Dioxide 16 mEq/L (23-29) L 02/08/19 04:00 BUN 25 mg/dL (8-23) H 02/08/19 04:00 BUN/Creatinine Ratio 34 (6-26) H 02/08/19 04:00 Glucose 244 mg/dL (70-105) H 02/10/19 05:22 POC Glucose 226 mg/dL (70-99) H 02/09/19 23:27 Serum Osmolality 340 mOsm/kg (280-300) H 02/06/19 13:30 Calculated Osmolality 303 (280-300) H 02/10/19 05:22 Calcium 7.9 mg/dL (8.6-10.3) L 02/10/19 05:22 Phosphorus 2.6 mg/dL (2.7-4.5) L 02/07/19 04:37 Troponin I 0.04 ng/mL (< 0.04) H* 02/06/19 13:30 Serum Total Protein 5.8 g/dL (6.4-8.9) L 02/07/19 04:37 Albumin 2.9 g/dL (3.5-5.7) L 02/07/19 04:37 Albumin/Globulin Ratio 1.0 (1.1-2.2) L 02/07/19 04:37 Urine Clarity Turbid (Clear) A 02/06/19 14:40 Ur Specific [place] > 1.030 (1.010-1.025) H 02/06/19 14:40 Urine Protein 100 mg/dL (Neg-Trace) H 02/06/19 14:40 Urine Glucose (UA) 500 mg/dL (Normal) H 02/06/19 14:40 Urine Blood Small (Negative) H 02/06/19 14:40 Urine Bilirubin Small (Negative) H 02/06/19 14:40 Ur Leukocyte Esterase Small (Negative) H 02/06/19 14:40 Urine Microscopic RBC 15-30 per hpf (0-3) H 02/06/19 14:40 Urine Microscopic WBC 50-100 per hpf (0-3) H 02/06/19 14:40 Ur Squamous Epith Cells Many per lpf (None-Few) H 02/06/19 14:40 Granular Casts Few per lpf (None Seen) H 02/06/19 14:40 Ur Culture Indicated? YES (NO) A 02/06/19 14:40 CSF Glucose 99 mg/dL (40-70) H 02/07/19 17:20 CSF Total Protein 88 mg/dL (15-45) H 02/07/19 17:20 Vancomycin Trough 13 mcg/mL (5-10) H 02/08/19 04:00 Staphylococcus sp PCR DETECTED (Not Detect) A 02/06/19 14:00 mecA-Methicil Res Gene DETECTED (Not Detect) A 02/06/19 14:00
[2019-02-10 13:40] LABS: HSV Source CSF
--- NOTE | 2019-02-10 14:52 | Electrocardiograph Report ---
[facility] [employer] Test Date: 2019-02-06 Pat Name: Randolph Mcnair Department: EXAM1 Room: 09 Gender: M [employer]: : 1945 Requested By: René Villela Order Number: [id number] Reading MD: Bayron Abdi Measurements Intervals [place] Rate: 75 P: 83 IA: 113 QRS: 20 QRSD: 101 T: 36 QT: 441 QTc: 493 Interpretive Statements Sinus rhythm Borderline short IA interval Probable left atrial enlargement RSR' in V1 or V2, probably normal variant Borderline T wave abnormalities Borderline prolonged QT interval Electronically Signed On 02-10-2019 14:51:05 EDT by Bayron Abdi
[2019-02-10] MEDS ORDERED: Scopolamine Patch 1.5 MG PATCH.TD72 TD SCH (20:00)
[2019-02-10] MEDS ORDERED: Insulin DETEMIR 100 UNIT/ML X5UNITS SQ SCH (21:00)
[2019-02-11] MEDS: Artificial Tears SOLN 15 ML BOTTLE BOTH EYES SCH ×2 (04:35→07:56)
[2019-02-11] MEDS: Insulin LISPRO 300 UNITS/3 ML VIAL SQ SCH ×3 (04:37→13:18)
[2019-02-11] MEDS: *HR* Enoxaparin 40 MG/0.4 ML SYRINGE SQ SCH (06:06)
[2019-02-11] MEDS: Famotidine 20 MG/2 ML VIAL IVP SCH (06:08)
[2019-02-11 07:56] LABS: Hematocrit 32.3 % (37.5-50.1); Hemoglobin 10.6 g/dL (12.9-16.9); Mean Corpuscular HGB Conc 32.8 g/dL (31.6-35.5); Mean Corpuscular Hemoglobin 30.8 pg (28.0-33.3); Mean Corpuscular Volume 93.9 fL (83.0-100.0); Mean Platelet Volume 11.4 fL (9.4-12.4); Platelet Count 296 K/mcL (140-400); Red Blood Count 3.44 M/mcL (4.19-5.50); Red Cell Distribution Width 12.1 % (11.5-14.5); White Blood Count 10.4 K/mcL (4.3-11.1)
--- NOTE | 2019-02-11 08:01 | Pulmonology Progress Note ---
<Shi Nicole - Last Filed: 02/11/19 12:21> Date of Encounter: 02/11/19 Time of Encounter: 08:54 Assessment and Plan (1) Acute respiratory failure with hypoxia Current Visit: Yes Status: Acute This is most likely due to toxic or metabolic encephalopathy. Seizure-like activity has also occurred. -Patient is now on NC and is tolerating well. -Rhonchi still present on auscultation today -Patient will not be reintubated if decompensation occurs, as per DNR-CCA-DNI status -Will continue to monitor respiratory status and blood gases (2) Acute metabolic encephalopathy Current Visit: Yes Status: Acute Patient has significant metabolic encephalopathy. Glucose and protein levels are elevated in CSF; CSF herpes level test has been sent. -On exam today, level of encephalopathy fluctuated over the course of two hours; at best, RASS was -2 but decreased to -4 or -5 later, with patient not responding to vocal or physical stimuli. -Current plan is to discontinue antibiotics on Thursday, unless infectious cause is revealed. -Patient is currently on Keppra for seizure-like activity -He is currently on Sinemet for muscle rigidity. -Neurology is consulted and their recommendations are welcomed. (3) Sepsis Current Visit: Yes Status: Acute Patient currently does not meet SIRS diagnostic criteria with normal temperature, HR of 63, RR of 20, WBC of 10,600 and less than 10% band forms. -Patient is currently only on Rocephin; infectious cause seems unlikely and antibiotics will be discontinued on Thursday if no cause is found -One blood culture grew S epidermidis; other blood culture is still incubating -Urine culture showed no growth -CSF was negative for herpes simplex -Varicella-Zoster viral DNA was not detected. Qualifiers: Sepsis type: sepsis due to unspecified organism Sepsis acute organ dysfunction status: unspecified Qualified Code(s): A41.9 - Sepsis, unspecified organism (4) DVT prophylaxis Current Visit: Yes Status: Acute Patient is currently on enoxaparin. -Continue current regimen (5) Dehydration Current Visit: Yes Status: Resolved Dehydration appears to be resolved. (6) Goals of care, counseling/discussion Current Visit: Yes Status: Acute Family agreed yesterday to change goals of care to DNR-CCA-DNI. -If patient decompensates from a respiratory standpoint, he will not be reintubated -Will discuss with patient's family today possibility of changing to DNR-CC Subjective Principal diagnosis: Encephalopathy Interval history: Patient shows improvement though he has fluctuating encephalopathy, varying between RASS of -2 and -4. Further discussions regarding goals of care will be p ursued today. Objective PUL Vital signs: Last Vital Signs Temp 98.7 F 02/11/19 07:38 Pulse 63 02/11/19 07:00 Resp 20 02/11/19 07:00 BP 142/68 02/11/19 07:00 Pulse Ox 99 02/11/19 07:00 RASS: -2 GENERAL: drowsy, opens eyes to voice SKIN: warm, dry, no rashes or lesions EYES: briefly made eye contact to voice, pupils equal and reactive to light bilaterally, nonicteric ENT: NG tube in place, a significant quantity of dried secretions in mouth CV: regular rate and rhythm, no murmurs, clicks, or gallops RESPIRATORY: generalized rhonchi in upper lung calvo, increased vibration with palpation over upper right lung field during breathing GI: soft, nontender, nondistended, normal bowel sounds EXTREMITIES: dorsalis pedis pulses 2/4 bilaterally, no edema or cyanosis, blisters forming on fingers and feet. : small volume of pale yellow urine in [place] bag Results - Laboratory Findings CBC and BMP: 02/11/19 07:36 02/11/19 07:36 ABG ABG pH 7.51 pH Units (7.32-7.45) H 02/10/19 04:42 ABG pCO2 33 mmHg (35-45) L 02/10/19 04:42 ABG pO2 70 mmHg (85-104) L 02/10/19 04:42 ABG O2 Saturation 96 % (95-98) 02/10/19 04:42 PT/INR, D-dimer PT 12.4 Seconds (9.4-12.1) H 02/07/19 04:37 Abnormal lab findings: Abnormal lab results WBC 11.2 K/mcL (4.3-11.1) H 02/09/19 03:48 RBC 3.68 M/mcL (4.19-5.50) L 02/10/19 05:22 Hgb 11.2 g/dL (12.9-16.9) L 02/10/19 05:22 Hct 34.6 % (37.5-50.1) L 02/10/19 05:22 MCHC 30.6 g/dL (31.6-35.5) L 02/07/19 04:37 Neutrophils # 9.0 K/mcL (1.6-8.9) H 02/09/19 03:48 PT 12.4 Seconds (9.4-12.1) H 02/07/19 04:37 ABG pH 7.51 pH Units (7.32-7.45) H 02/10/19 04:42 ABG pCO2 33 mmHg (35-45) L 02/10/19 04:42 ABG pO2 70 mmHg (85-104) L 02/10/19 04:42 ABG Total CO2 27 mEq/L (20-26) H 02/10/19 04:42 ABG O2 Saturation 99 % (95-98) H 02/08/19 05:26 VBG pO2 57 mmHg (25-50) H 02/07/19 04:54 Sodium 146 mEq/L (136-145) H 02/07/19 21:22 Potassium 3.2 mEq/L (3.5-5.1) L D 02/09/19 03:48 Chloride 108 mEq/L (98-107) H 02/10/19 05:22 Carbon Dioxide 16 mEq/L (23-29) L 02/08/19 04:00 BUN 25 mg/dL (8-23) H 02/08/19 04:00 BUN/Creatinine Ratio 34 (6-26) H 02/08/19 04:00 Glucose 244 mg/dL (70-105) H 02/10/19 05:22 POC Glucose 243 mg/dL (70-99) H 02/10/19 23:08 Serum Osmolality 340 mOsm/kg (280-300) H 02/06/19 13:30 Calculated Osmolality 303 (280-300) H 02/10/19 05:22 Calcium 7.9 mg/dL (8.6-10.3) L 02/10/19 05:22 Phosphorus 2.6 mg/dL (2.7-4.5) L 02/07/19 04:37 Troponin I 0.04 ng/mL (< 0.04) H* 02/06/19 13:30 Serum Total Protein 5.8 g/dL (6.4-8.9) L 02/07/19 04:37 Albumin 2.9 g/dL (3.5-5.7) L 02/07/19 04:37 Albumin/Globulin Ratio 1.0 (1.1-2.2) L 02/07/19 04:37 Urine Clarity Turbid (Clear) A 02/06/19 14:40 Ur Specific [place] > 1.030 (1.010-1.025) H 02/06/19 14:40 Urine Protein 100 mg/dL (Neg-Trace) H 02/06/19 14:40 Urine Glucose (UA) 500 mg/dL (Normal) H 02/06/19 14:40 Urine Blood Small (Negative) H 02/06/19 14:40 Urine Bilirubin Small (Negative) H 02/06/19 14:40 Ur Leukocyte Esterase Small (Negative) H 02/06/19 14:40 Urine Microscopic RBC 15-30 per hpf (0-3) H 02/06/19 14:40 Urine Microscopic WBC 50-100 per hpf (0-3) H 02/06/19 14:40 Ur Squamous Epith Cells Many per lpf (None-Few) H 02/06/19 14:40 Granular Casts Few per lpf (None Seen) H 02/06/19 14:40 Ur Culture Indicated? YES (NO) A 02/06/19 14:40 CSF Glucose 99 mg/dL (40-70) H 02/07/19 17:20 CSF Total Protein 88 mg/dL (15-45) H 02/07/19 17:20 Vancomycin Trough 13 mcg/mL (5-10) H 02/08/19 04:00 Staphylococcus sp PCR DETECTED (Not Detect) A 02/06/19 14:00 mecA-Methicil Res Gene DETECTED (Not Detect) A 02/06/19 14:00 - Microbiology Findings Microbiology Findings: Microbiology, Last 48 Hours 02/07/19 17:20 CSF Culture - Final Cerebral Spinal Fluid 02/06/19 14:00 Blood Culture - Final Peripheral Venipuncture Staphylococcus epidermidis - Clinical Findings Intake & Output: Intake & Output 02/10/19 02/10/19 02/11/19 15:59 23:59 07:59 Intake Total 175 / 1264 702 / 1264 597 / 597 Output Total 350 / 650 150 / 650 625 / 625 Balance -175 / 614 552 / 614 - / -28 Consult Discharge Plan - Plan Referrals: Julio Seals Jr, MD [Primary Care Provider] - <Ra Sena - Last Filed: 02/11/19 14:06> Date of Encounter: 02/11/19 Assessment and Plan (1) Acute respiratory failure with hypoxia Current Visit: Yes Status: Acute (2) Acute metabolic encephalopathy Current Visit: Yes Status: Acute (3) Sepsis Current Visit: Yes Status: Acute Qualifiers: Qualified Code(s): A41.9 - Sepsis, unspecified organism (4) DVT prophylaxis Current Visit: Yes Status: Acute (5) Goals of care, counseling/discussion Current Visit: Yes Status: Acute Objective PUL Vital signs: Last Vital Signs Temp 98.7 F 02/11/19 11:30 Pulse 62 02/11/19 12:00 Resp 24 02/11/19 12:00 BP 174/93 02/11/19 12:00 Pulse Ox 98 02/11/19 12:00 Results - Laboratory Findings CBC and BMP: 02/11/19 07:36 02/11/19 07:36 ABG ABG pH 7.51 pH Units (7.32-7.45) H 02/10/19 04:42 ABG pCO2 33 mmHg (35-45) L 02/10/19 04:42 ABG pO2 70 mmHg (85-104) L 02/10/19 04:42 ABG O2 Saturation 96 % (95-98) 02/10/19 04:42 PT/INR, D-dimer PT 12.4 Seconds (9.4-12.1) H 02/07/19 04:37 Abnormal lab findings: Abnormal lab results WBC 11.2 K/mcL (4.3-11.1) H 02/09/19 03:48 RBC 3.44 M/mcL (4.19-5.50) L 02/11/19 07:36 Hgb 10.6 g/dL (12.9-16.9) L 02/11/19 07:36 Hct 32.3 % (37.5-50.1) L 02/11/19 07:36 MCHC 30.6 g/dL (31.6-35.5) L 02/07/19 04:37 Neutrophils # 9.0 K/mcL (1.6-8.9) H 02/09/19 03:48 PT 12.4 Seconds (9.4-12.1) H 02/07/19 04:37 ABG pH 7.51 pH Units (7.32-7.45) H 02/10/19 04:42 ABG pCO2 33 mmHg (35-45) L 02/10/19 04:42 ABG pO2 70 mmHg (85-104) L 02/10/19 04:42 ABG Total CO2 27 mEq/L (20-26) H 02/10/19 04:42 ABG O2 Saturation 99 % (95-98) H 02/08/19 05:26 VBG pO2 57 mmHg (25-50) H 02/07/19 04:54 Sodium 146 mEq/L (136-145) H 02/07/19 21:22 Potassium 3.2 mEq/L (3.5-5.1) L D 02/09/19 03:48 Chloride 108 mEq/L (98-107) H 02/10/19 05:22 Carbon Dioxide 16 mEq/L (23-29) L 02/08/19 04:00 BUN 25 mg/dL (8-23) H 02/08/19 04:00 Creatinine 0.63 mg/dL (0.70-1.30) L 02/11/19 07:36 BUN/Creatinine Ratio 37 (6-26) H 02/11/19 07:36 Glucose 263 mg/dL (70-105) H 02/11/19 07:36 POC Glucose 243 mg/dL (70-99) H 02/10/19 23:08 Serum Osmolality 340 mOsm/kg (280-300) H 02/06/19 13:30 Calculated Osmolality 301 (280-300) H 02/11/19 07:36 Calcium 7.8 mg/dL (8.6-10.3) L 02/11/19 07:36 Phosphorus 2.6 mg/dL (2.7-4.5) L 02/07/19 04:37 Troponin I 0.04 ng/mL (< 0.04) H* 02/06/19 13:30 Serum Total Protein 5.8 g/dL (6.4-8.9) L 02/07/19 04:37 Albumin 2.9 g/dL (3.5-5.7) L 02/07/19 04:37 Albumin/Globulin Ratio 1.0 (1.1-2.2) L 02/07/19 04:37 Urine Clarity Turbid (Clear) A 02/06/19 14:40 Ur Specific [place] > 1.030 (1.010-1.025) H 02/06/19 14:40 Urine Protein 100 mg/dL (Neg-Trace) H 02/06/19 14:40 Urine Glucose (UA) 500 mg/dL (Normal) H 02/06/19 14:40 Urine Blood Small (Negative) H 02/06/19 14:40 Urine Bilirubin Small (Negative) H 02/06/19 14:40 Ur Leukocyte Esterase Small (Negative) H 02/06/19 14:40 Urine Microscopic RBC 15-30 per hpf (0-3) H 02/06/19 14:40 Urine Microscopic WBC 50-100 per hpf (0-3) H 02/06/19 14:40 Ur Squamous Epith Cells Many per lpf (None-Few) H 02/06/19 14:40 Granular Casts Few per lpf (None Seen) H 02/06/19 14:40 Ur Culture Indicated? YES (NO) A 02/06/19 14:40 CSF Glucose 99 mg/dL (40-70) H 02/07/19 17:20 CSF Total Protein 88 mg/dL (15-45) H 02/07/19 17:20 Vancomycin Trough 13 mcg/mL (5-10) H 02/08/19 04:00 Staphylococcus sp PCR DETECTED (Not Detect) A 02/06/19 14:00 mecA-Methicil Res Gene DETECTED (Not Detect) A 02/06/19 14:00 - Microbiology Findings Microbiology Findings: Microbiology, Last 48 Hours 02/07/19 17:20 CSF Culture - Final Cerebral Spinal Fluid 02/06/19 14:00 Blood Culture - Final Peripheral Venipuncture Staphylococcus epidermidis - Clinical Findings Intake & Output: Intake & Output 02/10/19 02/11/19 02/11/19 23:59 07:59 15:59 Intake Total 702 / 1264 597 / 975 378 / 975 Output Total 150 / 650 625 / 775 150 / 775 Balance 552 / 614 -28 / 200 228 / 200 - Attending Attestation - Attending Attestation I saw and evaluated this patient and my medical decision-making was reviewed with the Resident Physician. I agree with the documented findings, disposition and treatment plan as described except to the extent set forth below. We independently had [id number] contact with the patient Patient seen and examined at bedside Labs, radiology, chart personally reviewed. Management was reviewed during multidisciplinary critical care rounds. INSULATOR TESTER: Patient is completely encephalopathy CSF did not show any evidence of infection and the Gram stain and culture cell count not significant to discontinue all the intracranial antibiotics 02/11 patient is still encephalopathic not following commands not responding to any verbal stimuli but response to painful stimuli patient has good cough and gag reflex. Patient goals of care has been changed today Pulm: Patient has acceptable oxygenation and ventilation patient family did not want reintubation most likely transitioned to comfort care measures Cards: Patient is hemodynamically stable FEN-GI: Nothing by mouth because of mental status Renal: Labs and output reviewed ID: de-escalate antibiotics Heme/Onc: Labs reviewed Endo: Glucose Monitored Integ/MSK: Skin Care per routine ICU Nursing Protocol to prevent ulcers. Patient has a stage II coccyx ulcer Lines: All lines examined without evidence of infection : Dispo: family changes goals of care to comfort care will be transitioned to comfort symptom controlled bed CODE:DNRCC
[2019-02-11] MEDS: Chlorhexidine Rinse 15 ML MOUTHWASH MM SCH (08:02)
[2019-02-11] MEDS: cefTRIAXone 1,000 MG in Water for inj. (sterile) 10 ML IVP SCH (08:02)
[2019-02-11] MEDS: Carbidopa/Levodopa 25/100 TABLET PO SCH ×2 (08:03→15:37)
[2019-02-11 08:29] LABS: BUN/Creatinine Ratio 37 (6-26); Blood Urea Nitrogen 23 mg/dL (8-23); Calcium 7.8 mg/dL (8.6-10.3); Carbon Dioxide 29 mEq/L (23-29); Chloride 106 mEq/L (98-107); Glucose 263 mg/dL (70-105); Osmolality,Calculated 301 (280-300); Potassium 3.9 mEq/L (3.5-5.1); Sodium 139 mEq/L (136-145); eGFR For African Americans > 60 (> 60); eGFR For Non-African Americans > 60 (> 60)
[2019-02-11] MEDS ORDERED: Insulin DETEMIR 100 UNIT/ML X5UNITS SQ SCH (10:45)
--- NOTE | 2019-02-11 11:10 | Neurology Progress Note ---
<Giuseppe Luna M - Last Filed: 02/11/19 11:08> Date of Encounter: 02/11/19 Time of Encounter: 09:30 Assessment and Plan (1) Altered mental status Current Visit: Yes Status: Acute Patient continues to show altered mental status. Neurological exam was pertinent for patient opening eyes to verbal stimuli with some consistency. Patient unable to follow commands and continues to display stiffness with resistance to repositioning. Continue Keppra IV as previous EEG demonstrated potential seizure. Continue Sinemet for improving patients rigidity. Further recommendations in addendum to be attached by Dr. Nunez. Qualifiers: Altered mental status type: unspecified Qualified Code(s): R41.82 - Altered mental status, unspecified Subjective Principal diagnosis: Encephalopathy Interval history: Mr. Mcnair is a 73 year old male with past medical history significant for Parkinsons Disease, Type 2 Diabetes, Hypertension and bradycardia with a pacer. He was seen at bedside. Patient responded to external stimuli today by opening his eye to his name and some minimal withdrawal from painful stimuli. He was u nable to follow simple commands. He displays resistance to repositioning. No collateral source present at time of interview. Objective - Constitutional Vitals: Temp Pulse Resp BP Pulse Ox 98.7 F 60 29 126/78 92 02/11/19 07:38 02/11/19 10:00 02/11/19 10:00 02/11/19 10:00 02/11/19 10:00 General appearance: Present: severe distress (on vent), thin - Neurological Exam Sensorimotor examination: Present: other (unable to assess due to patients intubation and nonresponsive state) Motor Examination: Present: other (passive resistance to repositioning but no purposeful movements observed at time of examination) Sensation intact: Present: other (unable to assess due to patients intubation and nonresponsive state) Posture: Present: rigid Reflex and gait examination: other (areflexic) Mental Status Examination: Present: does not follow commands, opens eyes to voice. Absent: awake, alert, oriented to person, oriented to place, oriented to time, follows commands appropriately, answers questions appropriately, agitated, opens eyes to noxious stimulation, makes eye contact, follows simple commands, localizes noxious stimulation, grimmacing, answers questions by nodding yes or no, hook and gasp reflex Cranial nerve examination: Present: no facial asymmetry is present Results - Laboratory Findings CBC and BMP: 02/11/19 07:36 02/11/19 07:36 Abnormal lab findings: Abnormal lab results WBC 11.2 K/mcL (4.3-11.1) H 02/09/19 03:48 RBC 3.44 M/mcL (4.19-5.50) L 02/11/19 07:36 Hgb 10.6 g/dL (12.9-16.9) L 02/11/19 07:36 Hct 32.3 % (37.5-50.1) L 02/11/19 07:36 MCHC 30.6 g/dL (31.6-35.5) L 02/07/19 04:37 Neutrophils # 9.0 K/mcL (1.6-8.9) H 02/09/19 03:48 PT 12.4 Seconds (9.4-12.1) H 02/07/19 04:37 ABG pH 7.51 pH Units (7.32-7.45) H 02/10/19 04:42 ABG pCO2 33 mmHg (35-45) L 02/10/19 04:42 ABG pO2 70 mmHg (85-104) L 02/10/19 04:42 ABG Total CO2 27 mEq/L (20-26) H 02/10/19 04:42 ABG O2 Saturation 99 % (95-98) H 02/08/19 05:26 VBG pO2 57 mmHg (25-50) H 02/07/19 04:54 Sodium 146 mEq/L (136-145) H 02/07/19 21:22 Potassium 3.2 mEq/L (3.5-5.1) L D 02/09/19 03:48 Chloride 108 mEq/L (98-107) H 02/10/19 05:22 Carbon Dioxide 16 mEq/L (23-29) L 02/08/19 04:00 BUN 25 mg/dL (8-23) H 02/08/19 04:00 Creatinine 0.63 mg/dL (0.70-1.30) L 02/11/19 07:36 BUN/Creatinine Ratio 37 (6-26) H 02/11/19 07:36 Glucose 263 mg/dL (70-105) H 02/11/19 07:36 POC Glucose 243 mg/dL (70-99) H 02/10/19 23:08 Serum Osmolality 340 mOsm/kg (280-300) H 02/06/19 13:30 Calculated Osmolality 301 (280-300) H 02/11/19 07:36 Calcium 7.8 mg/dL (8.6-10.3) L 02/11/19 07:36 Phosphorus 2.6 mg/dL (2.7-4.5) L 02/07/19 04:37 Troponin I 0.04 ng/mL (< 0.04) H* 02/06/19 13:30 Serum Total Protein 5.8 g/dL (6.4-8.9) L 02/07/19 04:37 Albumin 2.9 g/dL (3.5-5.7) L 02/07/19 04:37 Albumin/Globulin Ratio 1.0 (1.1-2.2) L 02/07/19 04:37 Urine Clarity Turbid (Clear) A 02/06/19 14:40 Ur Specific [place] > 1.030 (1.010-1.025) H 02/06/19 14:40 Urine Protein 100 mg/dL (Neg-Trace) H 02/06/19 14:40 Urine Glucose (UA) 500 mg/dL (Normal) H 02/06/19 14:40 Urine Blood Small (Negative) H 02/06/19 14:40 Urine Bilirubin Small (Negative) H 02/06/19 14:40 Ur Leukocyte Esterase Small (Negative) H 02/06/19 14:40 Urine Microscopic RBC 15-30 per hpf (0-3) H 02/06/19 14:40 Urine Microscopic WBC 50-100 per hpf (0-3) H 02/06/19 14:40 Ur Squamous Epith Cells Many per lpf (None-Few) H 02/06/19 14:40 Granular Casts Few per lpf (None Seen) H 02/06/19 14:40 Ur Culture Indicated? YES (NO) A 02/06/19 14:40 CSF Glucose 99 mg/dL (40-70) H 02/07/19 17:20 CSF Total Protein 88 mg/dL (15-45) H 02/07/19 17:20 Vancomycin Trough 13 mcg/mL (5-10) H 02/08/19 04:00 Staphylococcus sp PCR DETECTED (Not Detect) A 02/06/19 14:00 mecA-Methicil Res Gene DETECTED (Not Detect) A 02/06/19 14:00 Consult Discharge Plan - Plan Referrals: Julio Seals Jr, MD [Primary Care Provider] - <EnriqueEtta I - Last Filed: 02/11/19 13:12> Date of Encounter: 02/11/19 Assessment and Plan (1) Altered mental status Current Visit: Yes Status: Acute Pt was seen and examined, my medical decision was reviewed with the Resident Physician, I agree with the documented findings, disposition and treatment plan, as described except to the extent set forth below Patient seems to be comfort care now suggest conservative measures discussed with family Etta Nunez MD Qualifiers: Altered mental status type: unspecified Qualified Code(s): R41.82 - Altered mental status, unspecified Objective - Constitutional Vitals: Temp Pulse Resp BP Pulse Ox 98.7 F 60 29 126/78 92 02/11/19 11:30 02/11/19 10:00 02/11/19 10:00 02/11/19 10:00 02/11/19 10:00 Results - Laboratory Findings CBC and BMP: 02/11/19 07:36 02/11/19 07:36 Abnormal lab findings: Abnormal lab results WBC 11.2 K/mcL (4.3-11.1) H 02/09/19 03:48 RBC 3.44 M/mcL (4.19-5.50) L 02/11/19 07:36 Hgb 10.6 g/dL (12.9-16.9) L 02/11/19 07:36 Hct 32.3 % (37.5-50.1) L 02/11/19 07:36 MCHC 30.6 g/dL (31.6-35.5) L 02/07/19 04:37 Neutrophils # 9.0 K/mcL (1.6-8.9) H 02/09/19 03:48 PT 12.4 Seconds (9.4-12.1) H 02/07/19 04:37 ABG pH 7.51 pH Units (7.32-7.45) H 02/10/19 04:42 ABG pCO2 33 mmHg (35-45) L 02/10/19 04:42 ABG pO2 70 mmHg (85-104) L 02/10/19 04:42 ABG Total CO2 27 mEq/L (20-26) H 02/10/19 04:42 ABG O2 Saturation 99 % (95-98) H 02/08/19 05:26 VBG pO2 57 mmHg (25-50) H 02/07/19 04:54 Sodium 146 mEq/L (136-145) H 02/07/19 21:22 Potassium 3.2 mEq/L (3.5-5.1) L D 02/09/19 03:48 Chloride 108 mEq/L (98-107) H 02/10/19 05:22 Carbon Dioxide 16 mEq/L (23-29) L 02/08/19 04:00 BUN 25 mg/dL (8-23) H 02/08/19 04:00 Creatinine 0.63 mg/dL (0.70-1.30) L 02/11/19 07:36 BUN/Creatinine Ratio 37 (6-26) H 02/11/19 07:36 Glucose 263 mg/dL (70-105) H 02/11/19 07:36 POC Glucose 243 mg/dL (70-99) H 02/10/19 23:08 Serum Osmolality 340 mOsm/kg (280-300) H 02/06/19 13:30 Calculated Osmolality 301 (280-300) H 02/11/19 07:36 Calcium 7.8 mg/dL (8.6-10.3) L 02/11/19 07:36 Phosphorus 2.6 mg/dL (2.7-4.5) L 02/07/19 04:37 Troponin I 0.04 ng/mL (< 0.04) H* 02/06/19 13:30 Serum Total Protein 5.8 g/dL (6.4-8.9) L 02/07/19 04:37 Albumin 2.9 g/dL (3.5-5.7) L 02/07/19 04:37 Albumin/Globulin Ratio 1.0 (1.1-2.2) L 02/07/19 04:37 Urine Clarity Turbid (Clear) A 02/06/19 14:40 Ur Specific [place] > 1.030 (1.010-1.025) H 02/06/19 14:40 Urine Protein 100 mg/dL (Neg-Trace) H 02/06/19 14:40 Urine Glucose (UA) 500 mg/dL (Normal) H 02/06/19 14:40 Urine Blood Small (Negative) H 02/06/19 14:40 Urine Bilirubin Small (Negative) H 02/06/19 14:40 Ur Leukocyte Esterase Small (Negative) H 02/06/19 14:40 Urine Microscopic RBC 15-30 per hpf (0-3) H 02/06/19 14:40 Urine Microscopic WBC 50-100 per hpf (0-3) H 02/06/19 14:40 Ur Squamous Epith Cells Many per lpf (None-Few) H 02/06/19 14:40 Granular Casts Few per lpf (None Seen) H 02/06/19 14:40 Ur Culture Indicated? YES (NO) A 02/06/19 14:40 CSF Glucose 99 mg/dL (40-70) H 02/07/19 17:20 CSF Total Protein 88 mg/dL (15-45) H 02/07/19 17:20 Vancomycin Trough 13 mcg/mL (5-10) H 02/08/19 04:00 Staphylococcus sp PCR DETECTED (Not Detect) A 02/06/19 14:00 mecA-Methicil Res Gene DETECTED (Not Detect) A 02/06/19 14:00
--- NOTE | 2019-02-11 13:49 | Palliative Progress Note ---
Date of Encounter: 02/11/19 Time of Encounter: 13:45 - Assessment and plan (1) Generalized pain Current Visit: Yes Status: Acute Assessment and plan: Will have low dose Roxanol available if needed for pain or dyspnea. Monitor a nd adjust as necessary (2) Restlessness Current Visit: Yes Status: Acute Assessment and plan: low dose Lorazepam available PRN and titrate for comfort. (3) Congestion of upper airway Current Visit: Yes Status: Acute Assessment and plan: Continue scopolamine patch - add atropine drops PRN. (4) Goals of care, counseling/discussion Current Visit: Yes Status: Acute Assessment and plan: Met with , Carrie and patient brother and sister. Updated on clinical status and re-discussed goals of care. Carrie discussed patient previously known wishes and states that although he didn't speak much of this, she knows that he would not want to "be like this, in a bed, not able to communicate". Family at bedside agrees. She discussed that neurology expressed to her that he may not improve from the current state. Carrie had questions regarding palliative care/hospice differences and explained at length. Discussed NG feeding - she does not want any type of permanent tube. Discussed that with his mental stat us, and already struggling with his own secretions, this will not keep him from aspirating, and the NG is only temporary. Carrie desired to have this removed, as she feels this is not addiing to the patient's comfort. Discussed code status at length as well, Carrie transitioned pt to DNR-Comfort care. She is ok with continuing atb therapy through the weekend til other decisions can be made. Discussed hospice care at length, Carrie unsure that she can care for him at home, as does not have enough support and is alone. She did not have good experience at ECF where he arrived from. Medicaid process has been started, but she is unsure of where that is in the process, and has not been able to reach them today by phone. She will decide over the weekend if she desires to try taking him home vs choosing another ECF. Regardless, she would desire hospice to be involved. He can transfer to palliative care bed under hospitalist care and we will f/u with on Thursday. 60 minutes total spent with pt/family discussing coordination of care and counseling/code status change. (5) Dementia Current Visit: Yes Status: Acute Qualifiers: Dementia type: unspecified type Dementia behavioral disturbance: with behavioral disturbance Qualified Code(s): F03.91 - Unspecified dementia with behavioral disturbance (6) Airway compromise Current Visit: Yes Status: Acute (7) Acute metabolic encephalopathy Current Visit: Yes Status: Acute (8) Palliative care encounter Current Visit: Yes Status: Acute - Time Spent With Patient Total time spent is greater than 50% in coordination of care (as documented) at patient's floor/unit and/or counseling patient: - Subjective Interval history: Patient neurological conditions has not improved, and still not interacting, fol lowing commands. Will not open eyes for me. Restless with examination.. Neurology notes reviewed. He was extubated yesterday and oxygenating well, however, positive for upper airway secretions. NG remains in place with feeding. , Carrie, and patient sister and brother at bedside. - Constitutional Vitals: Abnormal lab results WBC 11.2 K/mcL (4.3-11.1) H 02/09/19 03:48 RBC 3.44 M/mcL (4.19-5.50) L 02/11/19 07:36 Hgb 10.6 g/dL (12.9-16.9) L 02/11/19 07:36 Hct 32.3 % (37.5-50.1) L 02/11/19 07:36 MCHC 30.6 g/dL (31.6-35.5) L 02/07/19 04:37 Neutrophils # 9.0 K/mcL (1.6-8.9) H 02/09/19 03:48 PT 12.4 Seconds (9.4-12.1) H 02/07/19 04:37 ABG pH 7.51 pH Units (7.32-7.45) H 02/10/19 04:42 ABG pCO2 33 mmHg (35-45) L 02/10/19 04:42 ABG pO2 70 mmHg (85-104) L 02/10/19 04:42 ABG Total CO2 27 mEq/L (20-26) H 02/10/19 04:42 ABG O2 Saturation 99 % (95-98) H 02/08/19 05:26 VBG pO2 57 mmHg (25-50) H 02/07/19 04:54 Sodium 146 mEq/L (136-145) H 02/07/19 21:22 Potassium 3.2 mEq/L (3.5-5.1) L D 02/09/19 03:48 Chloride 108 mEq/L (98-107) H 02/10/19 05:22 Carbon Dioxide 16 mEq/L (23-29) L 02/08/19 04:00 BUN 25 mg/dL (8-23) H 02/08/19 04:00 Creatinine 0.63 mg/dL (0.70-1.30) L 02/11/19 07:36 BUN/Creatinine Ratio 37 (6-26) H 02/11/19 07:36 Glucose 263 mg/dL (70-105) H 02/11/19 07:36 POC Glucose 243 mg/dL (70-99) H 02/10/19 23:08 Serum Osmolality 340 mOsm/kg (280-300) H 02/06/19 13:30 Calculated Osmolality 301 (280-300) H 02/11/19 07:36 Calcium 7.8 mg/dL (8.6-10.3) L 02/11/19 07:36 Phosphorus 2.6 mg/dL (2.7-4.5) L 02/07/19 04:37 Troponin I 0.04 ng/mL (< 0.04) H* 02/06/19 13:30 Serum Total Protein 5.8 g/dL (6.4-8.9) L 02/07/19 04:37 Albumin 2.9 g/dL (3.5-5.7) L 02/07/19 04:37 Albumin/Globulin Ratio 1.0 (1.1-2.2) L 02/07/19 04:37 Urine Clarity Turbid (Clear) A 02/06/19 14:40 Ur Specific [place] > 1.030 (1.010-1.025) H 02/06/19 14:40 Urine Protein 100 mg/dL (Neg-Trace) H 02/06/19 14:40 Urine Glucose (UA) 500 mg/dL (Normal) H 02/06/19 14:40 Urine Blood Small (Negative) H 02/06/19 14:40 Urine Bilirubin Small (Negative) H 02/06/19 14:40 Ur Leukocyte Esterase Small (Negative) H 02/06/19 14:40 Urine Microscopic RBC 15-30 per hpf (0-3) H 02/06/19 14:40 Urine Microscopic WBC 50-100 per hpf (0-3) H 02/06/19 14:40 Ur Squamous Epith Cells Many per lpf (None-Few) H 02/06/19 14:40 Granular Casts Few per lpf (None Seen) H 02/06/19 14:40 Ur Culture Indicated? YES (NO) A 02/06/19 14:40 CSF Glucose 99 mg/dL (40-70) H 02/07/19 17:20 CSF Total Protein 88 mg/dL (15-45) H 02/07/19 17:20 Vancomycin Trough 13 mcg/mL (5-10) H 02/08/19 04:00 Staphylococcus sp PCR DETECTED (Not Detect) A 02/06/19 14:00 mecA-Methicil Res Gene DETECTED (Not Detect) A 02/06/19 14:00 General appearance: Present: no acute distress - Respiratory Additional comments: Scattered rhonchi noted to anterior chest. - Cardiovascular Cardiovascular exam: Present: +S1, +S2 - GI/Abdominal GI/Abdominal exam: Present: normal bowel sounds, soft Additional comments: NG in place with feeding - Additional comments: Duval patent and draining light eleanor urine - Extremities Exam Additional comments: 2+ edema bilateral feet. Heel protectors in place. - Neurological Exam Neurological exam: Present: altered Additional comments: Does not follow commands or open eyes for me at present for me. Does become restless with physical exam. - Skin Skin exam: Present: dry, pallor, warm Palliative Quality Palliative Quality: Screen for Code Status: Yes, Screen for Goals of Care: Yes, Screen for Pain: Yes, If Pain Regimen Started, Initiate Bowel Regimen: Yes, Screen for Nausea/Vomitting: Yes Code Status: 02/06/19 17:47 Resuscitation Status: Active [RES] Routine Comment: Resuscitation Status: DNR-Comfort Care 02/07/19 09:16 DNR [Resuscitation Status: Active] [RES] Routine Comment: with Intubation Resuscitation Status: DNR-Comfort Care-Arrest 02/10/19 11:37 DNR [Resuscitation Status: Active] [RES] Routine Comment: Resuscitation Status: [id number] 02/11/19 13:37 DNR [Resuscitation Status: Active] [RES] Routine Comment: Resuscitation Status: DNR-Comfort Care - Labs CBC & Chem 7: 02/11/19 07:36 02/11/19 07:36 Labs: Laboratory Results - last 24 hr 02/07/19 02/07/19 02/10/19 17:20 21:22 04:07 WBC RBC Hgb Hct MCV MCH MCHC RDW Plt Count MPV Sodium Potassium Chloride Carbon Dioxide BUN Creatinine Est GFR ( Amer) Est GFR (Non-Af Amer) BUN/Creatinine Ratio Glucose POC Glucose 114 H Calculated Osmolality Calcium Herpes Simplex Source CSF Herpes Simplex DNA PCR NOT DETECTED Varicella-Zoster Source SERUM VZV DNA (PCR) NOT DETECTED 02/10/19 02/10/19 02/10/19 07:48 11:26 15:37 WBC RBC Hgb Hct MCV MCH MCHC RDW Plt Count MPV Sodium Potassium Chloride Carbon Dioxide BUN Creatinine Est GFR ( Amer) Est GFR (Non-Af Amer) BUN/Creatinine Ratio Glucose POC Glucose 306 H 165 H 177 H Calculated Osmolality Calcium Herpes Simplex Source Herpes Simplex DNA PCR Varicella-Zoster Source VZV DNA (PCR) 02/10/19 02/10/19 02/11/19 19:39 23:08 07:36 WBC 10.4 RBC 3.44 L Hgb 10.6 L Hct 32.3 L MCV 93.9 MCH 30.8 MCHC 32.8 RDW 12.1 Plt Count 296 D MPV 11.4 Sodium Potassium Chloride Carbon Dioxide BUN Creatinine Est GFR ( Amer) Est GFR (Non-Af Amer) BUN/Creatinine Ratio Glucose POC Glucose 286 H 243 H Calculated Osmolality Calcium Herpes Simplex Source Herpes Simplex DNA PCR Varicella-Zoster Source VZV DNA (PCR) 02/11/19 07:36 WBC RBC Hgb Hct MCV MCH MCHC RDW Plt Count MPV Sodium 139 Potassium 3.9 Chloride 106 Carbon Dioxide 29 BUN 23 Creatinine 0.63 L Est GFR ( Amer) > 60 Est GFR (Non-Af Amer) > 60 BUN/Creatinine Ratio 37 H Glucose 263 H POC Glucose Calculated Osmolality 301 H Calcium 7.8 L Herpes Simplex Source Herpes Simplex DNA PCR Varicella-Zoster Source VZV DNA (PCR) - Impressions Impressions KUB X-Ray 02/10/19 11:58 IMPRESSION: Enteric tube in the stomach with the tip extending to the fundus. D/ / 02/10/2019 12:32:26 Fredo Chen MD / [facility] Interpreting Provider: Fredo Chen MD - ABG Interpretation ABG results: ABG ABG pH 7.51 pH Units (7.32-7.45) H 02/10/19 04:42 ABG pCO2 33 mmHg (35-45) L 02/10/19 04:42 ABG pO2 70 mmHg (85-104) L 02/10/19 04:42 ABG O2 Saturation 96 % (95-98) 02/10/19 04:42 PT/INR, D-dimer PT 12.4 Seconds (9.4-12.1) H 02/07/19 04:37 Palliative Scale - Palliative Performance Scale How ambulatory is this patient?: Totally bed bound What is patient's level of activity and evidence of disease?: Unable to do any activity, Extensive disease How much self-care assistance does patient require?: Total care How much oral intake does the patient have?: Mouth care only What is this patient's level of consciousness?: Drowsy or coma with or without confusion Palliative Performance Score: 10 % Consult Discharge Plan - Plan Referrals: Julio Seals Jr, MD [Primary Care Provider] -
[2019-02-11] MEDS: Morphine Sulfate Oral CONC 10 MG/0.5 ML ORAL.SYG SL PRN (16:36)
[2019-02-11] MEDS: *HR* LORazepam Oral Conc 2 MG/ML SL PRN (17:33)
[2019-02-11] MEDS: Atropine Sulfate 1% 40 DROP/2 ML BOTTLE SL PRN ×2 (17:33→22:48)
[2019-02-12] MEDS: Atropine Sulfate 1% 40 DROP/2 ML BOTTLE SL PRN ×3 (04:37→21:17)
[2019-02-12] MEDS: Morphine Sulfate Oral CONC 10 MG/0.5 ML ORAL.SYG SL PRN ×3 (04:40→12:14)
--- NOTE | 2019-02-12 07:47 | Internal Med Progress Note ---
Hospitalist Progress Note - Encounter Date of Encounter: 02/12/19 Time of Encounter: 09:00 - Subjective Interval History: No acute events overnight - Exam Vitals: Temp Pulse Resp BP Pulse Ox 99.1 F 69 22 137/68 97 02/12/19 07:25 02/12/19 07:25 02/12/19 07:25 02/12/19 07:25 02/12/19 07:25 Exam: GEN:Drowsy HEAD: Normocephalic, atraumatic. ENT: MMM. oropharynx without erythema or drainage. NECK: Supple. No LAD. No stiffness or restricted ROM. No tracheal deviation. HEART: Regular rate and regular rhythm, normal S1/S2, no m/r/g. LUNGS: Intubated. CTAB, good air exchange bilaterally. No wheezing, rubs, or rhonchi. ABDO: Soft, nontender, nondistended with active bowel sounds. : No suprapubic tenderness or CVA tenderness. BACK: No obvious stepoffs or deformities. EXT: Without cyanosis, clubbing or edema. SKIN: Warm and dry without any rash. - Assessment and Plan (1) Acute metabolic encephalopathy Current Visit: Yes Status: Acute Assessment and Plan: Pt came in with lethargy and metabolic encephalopathy thought secondary to sepsis due to meningitis vs pneumonia/UTI and seizures He was started on broad spectrum antibiotics and had an LP done. LP not suggestive of meningitis He is getting IV keppra for seizures as EEG showed possible seizure activitiy Family have decided to make him hospice (2) Acute respiratory failure with hypoxia Current Visit: Yes Status: Acute Assessment and Plan: Resolved s/p extubation. No plan to reintubate. Continue supportive care (3) Sepsis Current Visit: Yes Status: Acute Assessment and Plan: Resolved. Continue ceftriaxone (4) Goals of care, counseling/discussion Current Visit: Yes Status: Acute Assessment and Plan: PAtient is now hospice and awaiting discharge to hospice (5) Seizure Current Visit: Yes Status: Acute Assessment and Plan: Continue keppra (6) DVT prophylaxis Current Visit: Yes Status: Acute Assessment and Plan: Continue lovenox - Time Spent with Patient Total time spent is greater than 50% in coordination of care (as documented) at patient's floor/unit and/or counseling patient: Internal Medicine: Result - Labs CBC & Chem 7: 02/11/19 07:36 02/11/19 07:36 Labs: Short CBC 02/11/19 Range/Units 07:36 WBC 10.4 (4.3-11.1) K/mcL Hgb 10.6 L (12.9-16.9) g/dL Hct 32.3 L (37.5-50.1) % Plt Count 296 D (140-400) K/mcL BMP 02/11/19 07:36 Sodium 139 Potassium 3.9 Chloride 106 Carbon Dioxide 29 BUN 23 Creatinine 0.63 L Glucose 263 H Calcium 7.8 L - ABG Interpretation ABG results: ABG ABG pH 7.51 pH Units (7.32-7.45) H 02/10/19 04:42 ABG pCO2 33 mmHg (35-45) L 02/10/19 04:42 ABG pO2 70 mmHg (85-104) L 02/10/19 04:42 ABG O2 Saturation 96 % (95-98) 02/10/19 04:42 PT/INR, D-dimer PT 12.4 Seconds (9.4-12.1) H 02/07/19 04:37 Consult Discharge Plan - Plan Referrals: Julio Seals Jr, MD [Primary Care Provider] - (3) Sepsis Qualifiers: Sepsis type: sepsis due to unspecified organism Sepsis acute organ dysfunction status: unspecified Qualified Code(s): A41.9 - Sepsis, unspecified organism
[2019-02-12] MEDS ORDERED: cefTRIAXone 1,000 MG in Water for inj. (sterile) 10 ML IVP SCH (09:00)
[2019-02-12] MEDS: *HR* LORazepam Oral Conc 2 MG/ML SL PRN (11:32)
[2019-02-12] MEDS ORDERED: Acetaminophen IV 1,000 MG/100 ML INFUS..BTL IVPB PRN ×2 (13:00→13:02)
[2019-02-12] MEDS: *HR* FentaNYL (PF) 100 MCG/2 ML VIAL IVP PRN (13:55)
[2019-02-12] MEDS: Acetaminophen IV 1,000 MG/100 ML INFUS..BTL IVPB PRN (20:24)
[2019-02-13] MEDS: Morphine Sulfate Oral CONC 10 MG/0.5 ML ORAL.SYG SL PRN ×6 (04:07→20:49)
[2019-02-13] MEDS: *HR* LORazepam Oral Conc 2 MG/ML SL PRN ×6 (05:14→22:12)
--- NOTE | 2019-02-13 08:01 | Internal Med Progress Note ---
Hospitalist Progress Note - Encounter Date of Encounter: 02/13/19 Time of Encounter: 08:00 - Subjective Interval History: No acute events overnight - Exam Vitals: Temp Pulse Resp BP Pulse Ox 101.1 F H 65 20 155/73 97 02/13/19 06:41 02/13/19 06:41 02/13/19 06:41 02/13/19 06:41 02/13/19 06:41 Exam: GEN:Drowsy HEAD: Normocephalic, atraumatic. ENT: MMM. oropharynx without erythema or drainage. NECK: Supple. No LAD. No stiffness or restricted ROM. No tracheal deviation. HEART: Regular rate and regular rhythm, normal S1/S2, no m/r/g. LUNGS: Intubated. CTAB, good air exchange bilaterally. No wheezing, rubs, or rhonchi. ABDO: Soft, nontender, nondistended with active bowel sounds. : No suprapubic tenderness or CVA tenderness. BACK: No obvious stepoffs or deformities. EXT: Without cyanosis, clubbing or edema. SKIN: Warm and dry without any rash. - Assessment and Plan (1) Acute metabolic encephalopathy Current Visit: Yes Status: Acute Assessment and Plan: Pt came in with lethargy and metabolic encephalopathy thought secondary to sepsis due to meningitis vs pneumonia/UTI and seizures He was started on broad spectrum antibiotics and had an LP done. LP not suggestive of meningitis He is getting IV keppra for seizures as EEG showed possible seizure activitiy Family have decided to make him hospice (2) Acute respiratory failure with hypoxia Current Visit: Yes Status: Acute Assessment and Plan: Resolved s/p extubation. No plan to reintubate. Continue supportive care (3) Sepsis Current Visit: Yes Status: Acute Assessment and Plan: Pt has been spiking a fever. Broadened antibiotic regimen to vanc and zosyn till hospice is finalized Obtain cultures (4) Goals of care, counseling/discussion Current Visit: Yes Status: Acute Assessment and Plan: PAtient is now hospice and awaiting discharge to hospice (5) Seizure Current Visit: Yes Status: Acute Assessment and Plan: Continue keppra (6) DVT prophylaxis Current Visit: Yes Status: Acute Assessment and Plan: Continue lovenox - Time Spent with Patient Total time spent is greater than 50% in coordination of care (as documented) at patient's floor/unit and/or counseling patient: Internal Medicine: Result - Labs CBC & Chem 7: 02/11/19 07:36 02/11/19 07:36 - ABG Interpretation ABG results: ABG ABG pH 7.51 pH Units (7.32-7.45) H 02/10/19 04:42 ABG pCO2 33 mmHg (35-45) L 02/10/19 04:42 ABG pO2 70 mmHg (85-104) L 02/10/19 04:42 ABG O2 Saturation 96 % (95-98) 02/10/19 04:42 PT/INR, D-dimer PT 12.4 Seconds (9.4-12.1) H 02/07/19 04:37 Consult Discharge Plan - Plan Referrals: Julio Seals Jr, MD [Primary Care Provider] - (3) Sepsis Qualifiers: Sepsis type: sepsis due to unspecified organism Sepsis acute organ dysfunction status: unspecified Qualified Code(s): A41.9 - Sepsis, unspecified organism
[2019-02-13] MEDS: Atropine Sulfate 1% 40 DROP/2 ML BOTTLE SL PRN (08:31)
[2019-02-13] MEDS: *HR* FentaNYL (PF) 100 MCG/2 ML VIAL IVP PRN ×3 (10:23→15:50)
[2019-02-13] MEDS: Piperacillin/Tazobactam 3.375 GM in 0.9 % Sodium Chloride Mini Bag 100 ML IVPB SCH ×2 (10:23→15:58)
[2019-02-13 13:17] LABS: Basophils % 0.2 %; Eosinophils # 0.1 K/mcL (0.0-0.6); Eosinophils % 1.2 %; Hemoglobin 10.5 g/dL (12.9-16.9); Immature Granulocytes % 1.2 % (0-4); Lymphocytes # 1.7 K/mcL (0.6-4.6); Lymphocytes % 15.8 %; Mean Corpuscular HGB Conc 31.8 g/dL (31.6-35.5); Mean Corpuscular Hemoglobin 30.5 pg (28.0-33.3); Mean Corpuscular Volume 95.9 fL (83.0-100.0); Mean Platelet Volume 10.4 fL (9.4-12.4); Monocytes # 1.2 K/mcL (0.0-1.3); Monocytes % 11.1 %; Neutrophils # 7.4 K/mcL (1.6-8.9); Platelet Count 389 K/mcL (140-400); Red Blood Count 3.44 M/mcL (4.19-5.50); Red Cell Distribution Width 12.2 % (11.5-14.5); Segmented Neutrophils % 70.5 %; White Blood Count 10.5 K/mcL (4.3-11.1)
[2019-02-13 13:31] LABS: BUN/Creatinine Ratio 29 (6-26); Blood Urea Nitrogen 22 mg/dL (8-23); Carbon Dioxide 28 mEq/L (23-29); Chloride 104 mEq/L (98-107); Glucose 179 mg/dL (70-105); Osmolality,Calculated 298 (280-300); Potassium 4.3 mEq/L (3.5-5.1); Sodium 140 mEq/L (136-145); eGFR For African Americans > 60 (> 60); eGFR For Non-African Americans > 60 (> 60)
[2019-02-13] MEDS: Acetaminophen IV 1,000 MG/100 ML INFUS..BTL IVPB PRN (16:06)
[2019-02-13] MEDS ORDERED: Scopolamine Patch 1.5 MG PATCH.TD72 TD SCH (20:00)
[2019-02-14] MEDS: Piperacillin/Tazobactam 3.375 GM in 0.9 % Sodium Chloride Mini Bag 100 ML IVPB SCH (01:19)
[2019-02-14] MEDS: Atropine Sulfate 1% 40 DROP/2 ML BOTTLE SL PRN ×2 (01:28→11:29)
[2019-02-14] MEDS: Morphine Sulfate Oral CONC 10 MG/0.5 ML ORAL.SYG SL PRN ×3 (01:29→11:33)
[2019-02-14 07:11] VITALS: BP 117/66
--- NOTE | 2019-02-14 07:52 | Internal Med Progress Note ---
Hospitalist Progress Note - Encounter Date of Encounter: 02/14/19 Time of Encounter: 07:45 - Subjective Interval History: No acute events overnight - Exam Vitals: Temp Pulse Resp BP Pulse Ox 99.2 F 72 26 117/66 58 02/14/19 07:07 02/14/19 07:07 02/14/19 07:07 02/14/19 07:07 02/14/19 07:07 Exam: GEN:Drowsy HEAD: Normocephalic, atraumatic. ENT: MMM. oropharynx without erythema or drainage. NECK: Supple. No LAD. No stiffness or restricted ROM. No tracheal deviation. HEART: Regular rate and regular rhythm, normal S1/S2, no m/r/g. LUNGS: Intubated. CTAB, good air exchange bilaterally. No wheezing, rubs, or rhonchi. ABDO: Soft, nontender, nondistended with active bowel sounds. : No suprapubic tenderness or CVA tenderness. BACK: No obvious stepoffs or deformities. EXT: Without cyanosis, clubbing or edema. SKIN: Warm and dry without any rash. - Assessment and Plan (1) Acute metabolic encephalopathy Current Visit: Yes Status: Acute Assessment and Plan: Pt came in with lethargy and metabolic encephalopathy thought secondary to sepsis due to meningitis vs pneumonia/UTI and seizures He was started on broad spectrum antibiotics and had an LP done. LP not suggestive of meningitis He is getting IV keppra for seizures as EEG showed possible seizure activitiy Family have decided to make him hospice (2) Acute respiratory failure with hypoxia Current Visit: Yes Status: Acute Assessment and Plan: Resolved s/p extubation. No plan to reintubate. Continue supportive care (3) Sepsis Current Visit: Yes Status: Acute Assessment and Plan: Pt has been spiking a fever. Broadened antibiotic regimen to vanc and zosyn till hospice is finalized Obtain cultures (4) Goals of care, counseling/discussion Current Visit: Yes Status: Acute Assessment and Plan: PAtient is now hospice and awaiting discharge to hospice (5) Seizure Current Visit: Yes Status: Acute Assessment and Plan: Continue keppra (6) DVT prophylaxis Current Visit: Yes Status: Acute Assessment and Plan: Continue lovenox - Time Spent with Patient Total time spent is greater than 50% in coordination of care (as documented) at patient's floor/unit and/or counseling patient: Internal Medicine: Result - Labs CBC & Chem 7: 02/13/19 12:55 02/13/19 12:55 Labs: Short CBC 02/13/19 Range/Units 12:55 WBC 10.5 (4.3-11.1) K/mcL Hgb 10.5 L (12.9-16.9) g/dL Hct 33.0 L (37.5-50.1) % Plt Count 389 (140-400) K/mcL Neutrophils # 7.4 (1.6-8.9) K/mcL BMP 02/13/19 12:55 Sodium 140 Potassium 4.3 Chloride 104 Carbon Dioxide 28 BUN 22 Creatinine 0.77 Glucose 179 H Calcium 8.0 L - ABG Interpretation ABG results: ABG ABG pH 7.51 pH Units (7.32-7.45) H 02/10/19 04:42 ABG pCO2 33 mmHg (35-45) L 02/10/19 04:42 ABG pO2 70 mmHg (85-104) L 02/10/19 04:42 ABG O2 Saturation 96 % (95-98) 02/10/19 04:42 PT/INR, D-dimer PT 12.4 Seconds (9.4-12.1) H 02/07/19 04:37 Consult Discharge Plan - Plan Referrals: Julio Seals Jr, MD [Primary Care Provider] - (3) Sepsis Qualifiers: Sepsis type: sepsis due to unspecified organism Sepsis acute organ dysfunction status: unspecified Qualified Code(s): A41.9 - Sepsis, unspecified organism
[2019-02-14] MEDS ORDERED: Acetaminophen 650 MG RECTAL SUPP RC PRN (09:31)
--- NOTE | 2019-02-14 09:32 | Palliative Progress Note ---
Date of Encounter: 02/14/19 Time of Encounter: 11:50 - Assessment and plan (1) Generalized pain Current Visit: Yes Status: Acute Assessment and plan: Continue Roxanol PRN - utilized x5 last 24 hours. Monitor. Also has IV Fentan yl if needed for breakthrough (2) Restlessness Current Visit: Yes Status: Acute (3) Congestion of upper airway Current Visit: Yes Status: Acute Assessment and plan: Continue scopolamine/atropine PRN. Utilized x2 last 24 hours. (4) Goals of care, counseling/discussion Current Visit: Yes Status: Acute Assessment and plan: Discussed with at length. She refuses for him to go back to [facility], and states that if he leaves, she desires to take him home with hospice. His Resp rate and work of breathing has increased today, and will need adjustment of medications. Discussed transition to general inpatient hospice, and discussed if he stabilizes, can transition home later this week. agreeable and verbalized understanding. Hospitalist notified. D/W Kay Smith [facility] hospice medical device sales representative and referral has been called to [facility]. (5) Dementia Current Visit: Yes Status: Acute Qualifiers: Dementia type: unspecified type Dementia behavioral disturbance: with behavioral disturbance Qualified Code(s): F03.91 - Unspecified dementia with behavioral disturbance (6) Airway compromise Current Visit: Yes Status: Acute (7) Acute metabolic encephalopathy Current Visit: Yes Status: Acute (8) Palliative care encounter Current Visit: Yes Status: Acute - Time Spent With Patient Total time spent is greater than 50% in coordination of care (as documented) at patient's floor/unit and/or counseling patient: - Subjective Interval history: Patient with tachypnea that has increased over a few hours this am. Appears in mild resp distress. Remains unresponsive to verbal and tactile stimuli. at bedside and updated on clinical status. - Constitutional Vitals: Abnormal lab results WBC 11.2 K/mcL (4.3-11.1) H 02/09/19 03:48 RBC 3.44 M/mcL (4.19-5.50) L 02/13/19 12:55 Hgb 10.5 g/dL (12.9-16.9) L 02/13/19 12:55 Hct 33.0 % (37.5-50.1) L 02/13/19 12:55 MCHC 30.6 g/dL (31.6-35.5) L 02/07/19 04:37 Neutrophils # 9.0 K/mcL (1.6-8.9) H 02/09/19 03:48 PT 12.4 Seconds (9.4-12.1) H 02/07/19 04:37 ABG pH 7.51 pH Units (7.32-7.45) H 02/10/19 04:42 ABG pCO2 33 mmHg (35-45) L 02/10/19 04:42 ABG pO2 70 mmHg (85-104) L 02/10/19 04:42 ABG Total CO2 27 mEq/L (20-26) H 02/10/19 04:42 ABG O2 Saturation 99 % (95-98) H 02/08/19 05:26 VBG pO2 57 mmHg (25-50) H 02/07/19 04:54 Sodium 146 mEq/L (136-145) H 02/07/19 21:22 Potassium 3.2 mEq/L (3.5-5.1) L D 02/09/19 03:48 Chloride 108 mEq/L (98-107) H 02/10/19 05:22 Carbon Dioxide 16 mEq/L (23-29) L 02/08/19 04:00 BUN 25 mg/dL (8-23) H 02/08/19 04:00 Creatinine 0.63 mg/dL (0.70-1.30) L 02/11/19 07:36 BUN/Creatinine Ratio 29 (6-26) H 02/13/19 12:55 Glucose 179 mg/dL (70-105) H 02/13/19 12:55 POC Glucose 228 mg/dL (70-99) H 02/11/19 11:32 Serum Osmolality 340 mOsm/kg (280-300) H 02/06/19 13:30 Calculated Osmolality 301 (280-300) H 02/11/19 07:36 Calcium 8.0 mg/dL (8.6-10.3) L 02/13/19 12:55 Phosphorus 2.6 mg/dL (2.7-4.5) L 02/07/19 04:37 Troponin I 0.04 ng/mL (< 0.04) H* 02/06/19 13:30 Serum Total Protein 5.8 g/dL (6.4-8.9) L 02/07/19 04:37 Albumin 2.9 g/dL (3.5-5.7) L 02/07/19 04:37 Albumin/Globulin Ratio 1.0 (1.1-2.2) L 02/07/19 04:37 Urine Clarity Turbid (Clear) A 02/06/19 14:40 Ur Specific [place] > 1.030 (1.010-1.025) H 02/06/19 14:40 Urine Protein 100 mg/dL (Neg-Trace) H 02/06/19 14:40 Urine Glucose (UA) 500 mg/dL (Normal) H 02/06/19 14:40 Urine Blood Small (Negative) H 02/06/19 14:40 Urine Bilirubin Small (Negative) H 02/06/19 14:40 Ur Leukocyte Esterase Small (Negative) H 02/06/19 14:40 Urine Microscopic RBC 15-30 per hpf (0-3) H 02/06/19 14:40 Urine Microscopic WBC 50-100 per hpf (0-3) H 02/06/19 14:40 Ur Squamous Epith Cells Many per lpf (None-Few) H 02/06/19 14:40 Granular Casts Few per lpf (None Seen) H 02/06/19 14:40 Ur Culture Indicated? YES (NO) A 02/06/19 14:40 CSF Glucose 99 mg/dL (40-70) H 02/07/19 17:20 CSF Total Protein 88 mg/dL (15-45) H 02/07/19 17:20 Vancomycin Trough 13 mcg/mL (5-10) H 02/08/19 04:00 Staphylococcus sp PCR DETECTED (Not Detect) A 02/06/19 14:00 mecA-Methicil Res Gene DETECTED (Not Detect) A 02/06/19 14:00 General appearance: Present: no acute distress - Respiratory Additional comments: Scattered rhonchi anterior chest. Respiratory slightly tachypneic at 36. - Cardiovascular Cardiovascular exam: Present: +S1, +S2, tachycardia - GI/Abdominal GI/Abdominal exam: Present: normal bowel sounds, soft - Additional comments: [place] with eleanor urine/sediment noted - Extremities Exam Extremities exam: Present: normal capillary refill Additional comments: Bilateral feet with 1+ edema - Neurological Exam Neurological exam: Present: altered Additional comments: Would not open eyes or follow commands for me. Did grimace with sternal rub. - Skin Skin exam: Present: dry, pallor, warm Palliative Quality Palliative Quality: Screen for Code Status: Yes, Screen for Goals of Care: Yes, Screen for Pain: Yes, If Pain Regimen Started, Initiate Bowel Regimen: Yes, S creen for Nausea/Vomitting: Yes Code Status: 02/06/19 17:47 Resuscitation Status: Active [RES] Routine Comment: Resuscitation Status: DNR-Comfort Care 02/07/19 09:16 DNR [Resuscitation Status: Active] [RES] Routine Comment: with Intubation Resuscitation Status: DNR-Comfort Care-Arrest 02/10/19 11:37 DNR [Resuscitation Status: Active] [RES] Routine Comment: Resuscitation Status: [id number] 02/11/19 13:37 DNR [Resuscitation Status: Active] [RES] Routine Comment: Resuscitation Status: DNR-Comfort Care - Labs CBC & Chem 7: 02/13/19 12:55 02/13/19 12:55 Labs: Laboratory Results - last 24 hr 02/13/19 02/13/19 02/13/19 12:55 12:55 12:55 WBC 10.5 RBC 3.44 L Hgb 10.5 L Hct 33.0 L MCV 95.9 MCH 30.5 MCHC 31.8 RDW 12.2 Plt Count 389 MPV 10.4 Immature Gran % 1.2 Seg Neutrophils % 70.5 Lymphocytes % 15.8 Monocytes % 11.1 Eosinophils % 1.2 Basophils % 0.2 Neutrophils # 7.4 Lymphocytes # 1.7 Monocytes # 1.2 Eosinophils # 0.1 Basophils # 0.0 Sodium 140 Potassium 4.3 Chloride 104 Carbon Dioxide 28 BUN 22 Creatinine 0.77 Est GFR ( Amer) > 60 Est GFR (Non-Af Amer) > 60 BUN/Creatinine Ratio 29 H Glucose 179 H Calculated Osmolality 298 Lactic Acid 0.8 Calcium 8.0 L - ABG Interpretation ABG results: ABG ABG pH 7.51 pH Units (7.32-7.45) H 02/10/19 04:42 ABG pCO2 33 mmHg (35-45) L 02/10/19 04:42 ABG pO2 70 mmHg (85-104) L 02/10/19 04:42 ABG O2 Saturation 96 % (95-98) 02/10/19 04:42 PT/INR, D-dimer PT 12.4 Seconds (9.4-12.1) H 02/07/19 04:37 Palliative Scale - Palliative Performance Scale How ambulatory is this patient?: Totally bed bound What is patient's level of activity and evidence of disease?: Unable to do any activity, Extensive disease How much self-care assistance does patient require?: Total care How much oral intake does the patient have?: Mouth care only What is this patient's level of consciousness?: Drowsy or coma with or without confusion Palliative Performance Score: 10 % Consult Discharge Plan - Plan Referrals: Juloi Seals Jr, MD [Primary Care Provider] -
--- NOTE | 2019-02-14 12:50 | Discharge Summary ---
Date of Encounter: 02/14/19 Time of Encounter: 08:00 - Discharge Diagnosis (1) Acute metabolic encephalopathy Priority: Primary Status: Acute Assessment and Plan: 73 year old male with past medical history of Parkinson's disease, T2 DM, hypertension, or bradycardia with a pacer who presents with altered mental status. A family member states that approximately one week ago the patient went to a nursing facility for care due to his dementia. States that around this time he was able to ambulate and able to feed himself with food cut into small pieces. Over the course of last week, patient has been having a decreased appe tite and is acting "less like himself" per family member. He has had altered mentation. Has lost about 10 pounds. Although baseline he does not remember who his is. He has been less responsive and also had fevers measured to be 103 at the facility. [facility] In the emergency department, vitals: Temperature 100.8, HR 73, RR 33, BP 117/62, 91% 4 L NC. Patient was initially tachypneic and was unable to protect his airway. Patient was intubated. Head CT did not show any acute intracranial abnormalities. Lab testing significant for WBC 13.8, sodium 149 with corrected sodium of 153, glucose of 380, serum osmolality 340. Normal lactate. Troponin of 0.04. Patient was then admitted to the ICU status post intubation on the ventilator. Pt was assessed with lethargy and metabolic encephalopathy thought secondary to sepsis due to meningitis vs pneumonia/UTI, severe dehydration with hypernatremia and seizures. He was intubated for respiratory failure due to severe encephalopathy and managed in the ICU. He was started on broad spectrum antibiotics and had an LP done. LP was not suggestive of meningitis. He is getting IV keppra for seizures as EEG showed possible seizure activitiy. He was treated with broad spectrum antibiotics as well in the ICU. He was extubated to nasal cannula on 02/10 but has continued to be encephalopathic and minimaly responsive with increasing work of breathing. Family have decided to make him hospice in consultation with palliative care. He is being discharged to [facility] hospice. 35 minutes was spent discharging this patient (2) Acute respiratory failure with hypoxia Priority: Primary Status: Acute Assessment and Plan: Resolved s/p extubation. No plan to reintubate. Continue supportive care (3) Sepsis Priority: Primary Status: Acute Assessment and Plan: Pt has been spiking a fever. Broadened antibiotic regimen to vanc and zosyn till hospice is finalized Obtain cultures Qualifiers: Sepsis type: sepsis due to unspecified organism Sepsis acute organ dysfunction status: unspecified Qualified Code(s): A41.9 - Sepsis, unspecified organism (4) Goals of care, counseling/discussion Priority: Primary Status: Acute (5) Seizure Priority: Primary Status: Acute (6) DVT prophylaxis Priority: Primary Status: Acute Hospital course: Mr. Mcnair is a 73 year old male - Time Spent with Patient Total time spent providing and/or coordinating discharge services: - Discharge Medications Prescriptions: New LORazepam Oral Conc [Ativan Oral Conc] 2 mg SL Q2HR PRN mls PRN Reason: restlessness/anxiety FentaNYL (PF) 50 mcg IVP Q1H PRN 2 Days #2 vial PRN Reason: agitation/pain Morphine Sulfate Oral CONC [Roxanol Oral Conc] 10 mg SL Q2HR PRN oral.syg PRN Reason: pain/dyspnea Scopolamine Patch [Transderm-Scop] 1.5 mg TD Q72H patch.[id number] Discontinued amLODIPine [Norvasc] 5 mg PO DAILY Atorvastatin Calcium [Lipitor] 80 mg PO HS Memantine HCl 10 mg PO BID Lisinopril [Zestril] 20 mg PO BID Donepezil HCl [Aricept] 10 mg PO HS Aspirin [Lo-Dose Aspirin EC] 81 mg PO DAILY Acetaminophen [Extra Strength Non-Aspirin] 1,000 mg PO BID Carbidopa/Levodopa ER 50/200 [Sinemet ER 50-200 Tab] 1 tab PO BID Metformin HCl [Fortamet] 1,000 mg PO BIDWM Home Medications: FentaNYL (PF) 50 mcg IVP Q1H PRN 2 Days #2 vial 02/14/19 [Rx] LORazepam Oral Conc [Ativan Oral Conc] 2 mg SL Q2HR PRN mls 02/14/19 [Rx] Morphine Sulfate Oral CONC [Roxanol Oral Conc] 10 mg SL Q2HR PRN oral.syg 02/14/19 [Rx] Scopolamine Patch [Transderm-Scop] 1.5 mg TD Q72H patch.td72 02/14/19 [Rx] Allergies/Adverse Reactions: Allergy/AdvReac Type Severity Reaction Status Date / Time No Known Allergies Allergy Verified 12/29/16 07:43 Date of admission: 02/06/19 17:17 Primary care physician: Julio Seals Jr, MD Consults: 02/06/19 17:47 Consult to Nutrition [CONS] Routine Comment: Consulting Provider: NUTRITION Reason for Dietary Consult: Tube Feed Start & Manage 02/07/19 12:33 Consult to Neurology [CONS] Stat Consulting Provider: Neu[facility] Reason for Consult: altered mental status for 2 days presented with fever with unclear source. Time Notified: 12:35 Call Completed: Yes 02/07/19 14:17 Consult to Critical Care [CONS] Routine Consulting Provider: Pulm [facility] [place] Reason for Consult: Patient on vent - intubated in the ED due to concern for protecting airway Time Notified: 14:18 Call Completed: Yes 02/07/19 15:20 Consult to Interpret Exam [CONS] Routine Consulting Provider: Etta Nunez I Consult to Interpret Exam: Interpret EEG 02/10/19 07:22 Consult to Palliative Care [CONS] Routine Comment: Consulting Provider: Palliative Care [place] Reason for Consult: goals of care, previous code status DNE CC Call Completed: No - Constitutional Vitals: Temp Pulse Resp BP Pulse Ox 99.2 F 73 26 117/66 90 02/14/19 07:07 02/14/19 10:16 02/14/19 07:07 02/14/19 07:07 02/14/19 10:16 Exam: GEN:Minimally responsive HEAD: Normocephalic, atraumatic. ENT: MMM. oropharynx without erythema or drainage. NECK: Supple. No LAD. No stiffness or restricted ROM. No tracheal deviation. HEART: Regular rate and regular rhythm, normal S1/S2, no m/r/g. LUNGS: Intubated. CTAB, good air exchange bilaterally. No wheezing, rubs, or rhonchi. ABDO: Soft, nontender, nondistended with active bowel sounds. : No suprapubic tenderness or CVA tenderness. BACK: No obvious stepoffs or deformities. EXT: Without cyanosis, clubbing or edema. SKIN: Warm and dry without any rash. GCS. 6 - Patient Status Disposition: Hospice - Medical Facility Condition: Serious - Discharge Instructions Follow Up With: Julio Seals Jr, MD [Primary Care Provider] -
[2019-02-14] MEDS ORDERED: Aminoglycoside Consult 1 EACH MC ONE (15:53)
== END 2019-02-14 15:54 | disposition hospice, inpatient (51) | DRG 871 ==
LOC: EMEROOARM 13:24 → ICNU 17:17 → SUATTDRO 17:17 → ICNU 18:26 → 2ANU 02-11 15:28
PROVIDERS: ADMIT Internal Medicine; ATTEND Internal Medicine

== ENCOUNTER 2019-02-14 11:54 | Inpatient (IN) ==
[2019-02-14] MEDS ORDERED: Bisacodyl 10 MG RECTAL SUPPOSITORY RC PRN (13:06)
[2019-02-14] MEDS ORDERED: *HR* LORazepam Oral Conc 2 MG/ML PO PRN (13:06)
[2019-02-14] MEDS ORDERED: Atropine Sulfate 1% 40 DROP/2 ML BOTTLE SL PRN (13:06)
[2019-02-14] MEDS ORDERED: Acetaminophen 650 MG RECTAL SUPP RC PRN (13:11)
[2019-02-14] MEDS ORDERED: *HR* LORazepam 2 MG/ML VIAL IVP PRN (13:13)
[2019-02-14] MEDS: Morphine Sulfate Oral CONC 10 MG/0.5 ML ORAL.SYG SL PRN ×2 (17:59→21:35)
[2019-02-14 20:06] VITALS: BP 123/70
[2019-02-16] MEDS ORDERED: Scopolamine Patch 1.5 MG PATCH.TD72 TD SCH (21:00)
== END 2019-02-15 01:08 | disposition expired | DRG 871 ==
LOC: 2ANU 16:28
PROVIDERS: ADMIT Internal Medicine Hospice and Palliative Medicine; ATTEND Internal Medicine Hospice and Palliative Medicine